=== PATIENT | male | born 1955 | race Caucasian/White ===

== ENCOUNTER 2020-02-23 20:35 | Inpatient (IN) | payer MEDICARE, OTHER ==
[~2020-02-23] VITALS: Ht 175.3 cm; Wt 92.6 kg
--- NOTE | 2020-02-23 21:23 | NUR ---
PT BIBEMS SENT BY DR LOPEZ FROM [facility] FOR TEMPORARY COLOSTOMY PLACEMENT AND FURTHER EVAL. +SACRAL WOUND. PT W/ TRACHE ON 5 LPM OF O2, SANDOVAL CATHETER AND RECTAL TUBE IN PLACE. PT AAOX2, VSS.PT CONNECTED TO THE GIS MANAGER AND POX.
--- NOTE | 2020-02-23 21:52 | NUR ---
COVID SWAB COLLECTED AND SENT TO LAB
--- NOTE | 2020-02-23 21:52 | NUR ---
BLOOD COLLECTED AND SENT TO LAB
--- NOTE | 2020-02-23 22:00 | NUR ---
CALLED NURSING SUP FOR BED
[2020-02-23 22:01] LABS: BASOPHILS # (AUTO) 0.1 /CMM (0.0-0.2); BASOPHILS % (AUTO) 0.4 % (0.0-2.0); EOSINOPHILS % (AUTO) 0.5 % (0.0-6.0); HEMATOCRIT 23 % (39-51); HEMOGLOBIN 7.1 g/dL (13.5-17.5); LYMPHOCYTES # (AUTO) 1.6 /CMM (0.8-4.8); LYMPHOCYTES % (AUTO) 7.6 % (20.0-44.0); MEAN CORPUSCULAR HGB CONC 31 g/dl (31.0-36.0); MEAN CORPUSCULAR VOLUME 89 fL (80-96); MONOCYTES % (AUTO) 4.6 % (2.0-12.0); NEUTROPHILS # (AUTO) 18.7 /CMM (1.8-8.9); NEUTROPHILS % (AUTO) 86.9 % (43.0-81.0); PLATELET COUNT (AUTO) 363 /CMM (150-450); RED BLOOD CELL COUNT(AUTO) 2.57 MIL/uL (4.5-6.0); WHITE BLOOD COUNT (AUTO) 21.5 K/uL (4.3-11.0)
[2020-02-23 22:23] LABS: CALCIUM, SERUM 8.5 mg/dL (8.5-10.1); CREATININE 0.8 mg/dL (0.6-1.3); POTASSIUM 4.5 mmol/L (3.5-5.1)
[2020-02-23 22:30] LABS: ALBUMIN 1.5 g/dL (3.4-5.0); BILIRUBIN,TOTAL 0.3 mg/dL (0.2-1.0); TOTAL PROTEIN, SERUM 6.6 g/dL (6.4-8.2)
[2020-02-23 22:36] LABS: BILIRUBIN,URINE NEGATIVE (NEGATIVE); BLOOD, URINE NEGATIVE Ery/uL (NEGATIVE); COLOR,URINE YELLOW (YELLOW); LEUKOCYTE ESTERASE ,URINE LARGE (NEGATIVE); NITRITE, URINE NEGATIVE (NEGATIVE); PH,URINE 8.5 (5.0-8.0); PROTEIN,URINE 30 mg/dl (NEGATIVE); UGLUCOSE NEGATIVE (NEGATIVE); UROBILINOGEN,URINE 0.2 EU/dL (0.2)
[2020-02-23 22:44] LABS: BACTERIA,URINE 3+ /HPF (None Seen); SQUAMOUS EPITHELIAL CELL,UR Few /HPF (None Seen); URINE AMORPHOUS PHOSPHATES Moderate /HPF (None Seen); WBC,URINE 81-100 /HPF (0-3)
[2020-02-24] MEDS ORDERED: ONDANSETRON HCL/PF 4 MG/2 ML VIAL IVP PRN
[2020-02-24] MEDS ORDERED: HYDROCODONE/APAP 5/325MG TABLET PO PRN
[2020-02-24] MEDS ORDERED: INSULIN REGULAR, HUMAN 100 UNIT/ML 3 ML VIAL SQ PRN
[2020-02-24] MEDS ORDERED: MAGNESIUM HYDROXIDE 30 ML UDC PO PRN
[2020-02-24] MEDS ORDERED: MAG HYDROX/AL HYDROX/SIMETH 30 ML UDC PO PRN
--- NOTE | 2020-02-24 01:19 | NUR ---
PT RESTING. NAD NOTED, VSS, BREATHING IS EVEN AND UNLABORED. WILL CONTINUE TO MONITOR.
[2020-02-24] MEDS: *INSULIN REGULAR(HUMULIN R)HUM 100 UNIT/ML VIAL SQ PRN ×2 (02:30→23:29)
[2020-02-24] MEDS ORDERED: INSULIN REGULAR, HUMAN 100 UNIT/ML 10 ML VIAL ONE (02:31)
--- NOTE | 2020-02-24 04:00 | NUR ---
PT SLEEPING IN BED. EASILY AWAKEN BY MECHANICAL STIMULI. VSS WILL CONTINUE TO MONITOR.
[2020-02-24 05:19] LABS: BASOPHILS # (AUTO) 0.1 /CMM (0.0-0.2); BASOPHILS % (AUTO) 0.5 % (0.0-2.0); EOSINOPHILS % (AUTO) 0.7 % (0.0-6.0); LYMPHOCYTES # (AUTO) 2.2 /CMM (0.8-4.8); LYMPHOCYTES % (AUTO) 12.1 % (20.0-44.0); MEAN CORPUSCULAR HGB CONC 31 g/dl (31.0-36.0); MEAN CORPUSCULAR VOLUME 89 fL (80-96); MONOCYTES # (AUTO) 1.1 /CMM (0.1-1.30); MONOCYTES % (AUTO) 6.3 % (2.0-12.0); NEUTROPHILS # (AUTO) 14.6 /CMM (1.8-8.9); NEUTROPHILS % (AUTO) 80.4 % (43.0-81.0); PLATELET COUNT (AUTO) 334 /CMM (150-450); RED BLOOD CELL COUNT(AUTO) 2.15 MIL/uL (4.5-6.0); WHITE BLOOD COUNT (AUTO) 18.1 K/uL (4.3-11.0)
[2020-02-24 05:25] LABS: CALCIUM, SERUM 8.8 mg/dL (8.5-10.1); CREATININE 0.6 mg/dL (0.6-1.3); PHOSPHORUS 3.2 mg/dL (2.5-4.9); POTASSIUM 4.2 mmol/L (3.5-5.1)
[2020-02-24 05:26] LABS: HEMATOCRIT 19 % (39-51)
[2020-02-24 05:45] LABS: BAND % (MANUAL) 3 % (0.0-5.0); EOSINOPHILS % (MANUAL) 3 % (0-4); LYMPHOCYTES % (MANUAL) 12 % (16-48); MONOCYTES % (MANUAL) 7 % (0-11.0); NEUTROPHILS % (MANUAL) 75 (42-76)
[2020-02-24 06:20] LABS: BASOPHILS # (AUTO) 0.1 /CMM (0.0-0.2); BASOPHILS % (AUTO) 0.5 % (0.0-2.0); EOSINOPHILS % (AUTO) 0.9 % (0.0-6.0); LYMPHOCYTES # (AUTO) 2.2 /CMM (0.8-4.8); LYMPHOCYTES % (AUTO) 12.2 % (20.0-44.0); MEAN CORPUSCULAR HGB CONC 32 g/dl (31.0-36.0); MEAN CORPUSCULAR VOLUME 90 fL (80-96); MONOCYTES # (AUTO) 1.1 /CMM (0.1-1.30); NEUTROPHILS # (AUTO) 14.6 /CMM (1.8-8.9); NEUTROPHILS % (AUTO) 80.4 % (43.0-81.0); PLATELET COUNT (AUTO) 345 /CMM (150-450); RED BLOOD CELL COUNT(AUTO) 2.19 MIL/uL (4.5-6.0); WHITE BLOOD COUNT (AUTO) 18.1 K/uL (4.3-11.0)
[2020-02-24 06:21] LABS: HEMOGLOBIN 6.2 g/dL (13.5-17.5)
[2020-02-24 06:22] LABS: HEMATOCRIT 20 % (39-51)
--- NOTE | 2020-02-24 06:42 | NUR ---
blood consent signed by pt
--- NOTE | 2020-02-24 07:24 | NUR ---
REPORT GIVEN TO PRIMO ROBINS FOR ERIC
[2020-02-24] MEDS: BLOOD SUGAR DIAGNOSTIC 1 EACH STRIP VI SCH ×4 (07:30→22:05)
--- NOTE | 2020-02-24 09:45 | NUR ---
PHLEB ATTEMPTING TO OBTAIN BLOOD FOR A TYPE AND SCREEN. PATIENT A/OX3, BREATHING EVEN AND UNLABORED, RESTING COMFORTABLE.
[2020-02-24] MEDS ORDERED: DONE5TAB34 GT (09:48)
[2020-02-24] MEDS ORDERED: ONDA4TAB11 GT (09:48)
[2020-02-24] MEDS ORDERED: NUT.237L31 GT (09:48)
[2020-02-24] MEDS ORDERED: AMIN887L GT (09:48)
[2020-02-24] MEDS ORDERED: LANS30CA56 GT (09:48)
[2020-02-24] MEDS ORDERED: NA P133E RC (09:48)
[2020-02-24] MEDS ORDERED: DIGO0.12 GT (09:48)
[2020-02-24] MEDS ORDERED: ASCO500C17 GT (09:48)
[2020-02-24] MEDS ORDERED: MAGN400O6 GT (09:48)
[2020-02-24] MEDS ORDERED: CRAN3875 GT (09:48)
[2020-02-24] MEDS ORDERED: MULT-439 GT (09:48)
[2020-02-24] MEDS ORDERED: DOCU-141 GT (09:48)
[2020-02-24] MEDS ORDERED: CHLO473M3 MM (09:48)
[2020-02-24] MEDS ORDERED: HYDR-4384 PO (09:48)
[2020-02-24] MEDS ORDERED: FURO-145 PO (09:48)
[2020-02-24] MEDS ORDERED: INSU100I4 SQ (09:48)
[2020-02-24] MEDS ORDERED: ACET325T53 GT (09:48)
[2020-02-24] MEDS ORDERED: IPRA4AER IH (09:48)
[2020-02-24] MEDS ORDERED: MEMA5TAB GT (09:48)
[2020-02-24] MEDS ORDERED: APIX5TAB GT (09:48)
[2020-02-24] MEDS ORDERED: ATOR80TA GT (09:48)
[2020-02-24] MEDS ORDERED: BISA-79 GT (09:48)
--- NOTE | 2020-02-24 11:31 | NUR ---
PATIENT SEEN BY ANDRY MARY FROM SURGERY DEPT.
--- NOTE | 2020-02-24 13:44 | NUR ---
Assumed patient care from ruy ace for tatiana
--- NOTE | 2020-02-24 14:08 | NUR ---
BT STARTED. VERIFIED BY SHIMON TREJO
[2020-02-24] MEDS ORDERED: CEFTRIAXONE 1 G in IV D5W 50 ML IV SCH (14:30)
--- NOTE | 2020-02-24 15:56 | NUR ---
BT COMPLETED. NO ADVERSE SIDE EFFECT NOTED.
--- NOTE | 2020-02-24 16:20 | NUR ---
NURSING SUP GAVE 306-1. ROMEO IS THE NURSE.
--- NOTE | 2020-02-24 16:40 | NUR ---
REPORT GIVEN TO SHIMON BRITTON FOR ERIC
--- NOTE | 2020-02-24 16:55 | NUR ---
PT TRANSPORTED TO UNIT ON [facility] WITH EMT AND RN AT THE BED SIDE W/ ACLS PROTOCOL. NAD NOTED DURING TRANSPORT.
[2020-02-24 17:00] VITALS: BP 91/62
[2020-02-24] MEDS ORDERED: Z GUARD REMEDY 2 OZ OINT TP PRN ×2 (17:00)
[2020-02-24] MEDS ORDERED: DEXTROSE 50%-WATER 50 ML DISP.SYRIN IV PRN ×2 (17:00)
--- NOTE | 2020-02-24 17:00 | NUR ---
COMPLAINT INSPECTOR ADMITTING NOTES RECEIVED PT AT THIS TIME. PT TRANSPORTED TO UNIT BY RENÉ. PT AOX2. PT ON EXTERNAL TELE JAWBONE PULLER READING SR IN THE 80S. NO SOB NOTED, NO S/S OF ANY ACUTE DISTRESS NOTED. NO C/O PAIN AT THIS TIME. RESPIRATIONS ARE EVEN AND UNLABORED. PT NOTED WITH TRACH ON COOL AEROSOL, PORTEX 8. IV ACCESS NOTED IN LFA G#22, INTACT, PATENT AND FLUSHING WELL. LUNG SOUNDS ARE CLEAR TO AUSCULTATION, ACTIVE BOWEL SOUNDS, ABD IS SOFT AND NON TENDER. SKIN IS WARM TO TOUCH. CAPILLARY REFILL <3SECONDS. PULSES ARE PRESENT BILATERALLY. SANDOVAL CATHETER IN PLACE DRAINING TO GRAVITY CLEAR YELLOW URINE OUTPUT. G-TUBE NOTED, CLEAN AND DRY. RECTAL TUBE IN PLACE. SACRAL WOUND NOTED, PICTURE TAKEN AND FILED IN CHART.WOUND CARE PROVIDED. PT HAD NO BELONGINGS NOTED. ASPIRATION AND SAFETY PRECAUTION IN PLACE AND MAINTAINED AT ALL TIMES. BED IN LOWEST LOCKED POSITION, HOB ELEVATED, SIDE RAILS UP X 2, CALL LIGHT AND TABLE WITHIN REACH. WILL CONTINUE TO MONITOR.
[2020-02-24] MEDS: CEFTRIAXONE 1 G in IV D5W 50 ML IV SCH (17:55)
[2020-02-24] MEDS: IV 1/2NS 1000 ML 1,000 ML IV PRN (17:55)
--- NOTE | 2020-02-24 18:00 | NUR ---
PT PLACED ON DVT PUMPS PER VTE PROTOCOL, WILL ENDORSE TO LINING FINISHER NURSE
--- NOTE | 2020-02-24 19:00 | NUR ---
GOT UPDATE ON PT'S FLU VACCINE AND PNEUMOCOCCAL VACCINE FROM SHIMON BOOKER @ [facility]. PER ADE, PT RECEIVED FLU VACCINE ON FEB 05, 2020 AND PNEUMOVAX ON FEB 06, 2020
--- NOTE | 2020-02-24 19:01 | NUR ---
PER SHIMON BOOKER @ [facility], PT WAS ON GLUCERNA 1.5 @65ML/HR X20HRS. OFF @8AM AND START@12NOON. DR PEGUERO MADE AWARE AND ENDORSED TO SHIMON DOVE DROP PRESS HAND
--- NOTE | 2020-02-24 19:02 | NUR ---
RECEIVED ORDERS FROM DR PEGUERO TO RESUME PT ON GLUCERNA 1.5 @65ML/HR X20HRS. OFF @8AM AND START@12NOON. ORDERS CARRIED OUT. WILL ENDORSE TO COUTURE ALTERATIONS DRESSMAKER NURSE
--- NOTE | 2020-02-24 19:05 | NUR ---
NIB FINISHER CLOSING NOTES PT AWAKE IN BED AT THIS TIME. PT REMAINED STABLE THROUGHOUT SHIFT. ALL CARE, NEED, MEDICATIONS AND TREATMENT ADMINISTERED ANTICIPATED PER ORDER. PT KEPT CLEAN AND DRY. RECTAL TUBE OUTPUT MEASURED AND EMPTIED. TRACH TIE CHANGED AND TRACH CARE PROVIDED. WOUND CARE PROVIDED. G-TUBE SITE KEPT CLEAN AND DRY. SANDOVAL CATHETER CARE PROVIDED. PT REPOSITIONED Q2HRS AND PRN. ASPIRATION AND SAFETY PRECAUTION IN PLACE AND MAINTAINED AT ALL TIMES. BED IN LOWEST LOCKED POSITION, HOB ELEVATED, SIDE RAILS UP X 2, CALL LIGHT AND TABLE WITHIN REACH. WILL CONTINUE TO MONITOR.
--- NOTE | 2020-02-24 19:30 | NUR ---
WOUND CONSULT TRIGGERED. WILL CONTINUE WITH PLAN OF CARE
--- NOTE | 2020-02-24 19:30 | NUR ---
RN NOTES RECEIVED PT. SLEEPING BUT AROUSABLE, SR ON TELE MONITOR HR-79, G-TUBE CLAMPED, RECTAL TUBE IN PLACE, F/C DRAINING CLEAR YELLOW URINE, TRACH CONNECTED TO COOL AEROSOL, NOT IN DISTRESS, NO PAIN NOTED, SIDERAILSUPX2 CONTINUE TO MONITOR
[2020-02-24 20:00] VITALS: BP 105/65
[2020-02-24 20:15] VITALS: BP 105/65
[2020-02-24] MEDS ORDERED: GLUCERNA 1.5 1,000 ML BOTTLE GT PRN (20:30)
[2020-02-24] MEDS: VANCOMYCIN 1 GM in IV D5W 250 ML IV SCH (20:35)
--- NOTE | 2020-02-24 23:00 | NUR ---
RN NOTES STARTED G-TUBE FEEDING GLUCERNA @ 65ML HR, , CONTINUE TO MONITOR
[2020-02-24 23:20] LABS: HEMOGLOBIN 7.2 g/dL (13.5-17.5)
[2020-02-25] VITALS (12 sets, daily range): BP systolic 89–104; BP diastolic 51–66
[2020-02-25] MEDS: VANCOMYCIN 1 GM in IV D5W 250 ML IV SCH ×3 (03:36→22:18)
[2020-02-25] MEDS: INSULIN REGULAR, HUMAN 100 UNIT/ML 3 ML VIAL SQ PRN ×3 (05:55→17:56)
--- NOTE | 2020-02-25 06:37 | NUR ---
RN NOTES SLEEPING BUT AROUSABLE, NOT IN DISTRESS, PT IS TOLERATING HIS G-TUBE FEEDING FAIRLY, RECTAL IN TUBE IN PLACE, F/C DRAINING TEA COLORED URINE, SIDERAILSUPX2, PT. NEEDS ATTENDED
[2020-02-25] MEDS: BLOOD SUGAR DIAGNOSTIC 1 EACH STRIP VI SCH ×4 (06:59→22:18)
--- NOTE | 2020-02-25 07:30 | NUR ---
RN OPENING NOTE THE PATIENT IS RECEIVED IN BED. PATIENT IS ALERT TO SELF AND ABLE TO MOUTH WORDS. THE PATIENT IS HAS TRACH PORTEX #8. NO S/S RESPIRATORY DISTRESS NOTED. DENIES PAIN. TELE BOX READING IS SR 67 WITH PAC. GT FEEDING GLUCERNA INFUSING AT 65ML/HR. SANDOVAL CATH AND RECTAL TUBES PRESENT. LFA G 20 PATENT AND 1/2 NS INFUSING AT 75ML/HR AND NO S/S INFILTRATION NOTED. BED LOW AND LOCKED. SIDE RAILS UP X3. CALL LIGHT WITHIN REACH. WILL CONTINUE TO MONITOR.
--- NOTE | 2020-02-25 08:55 | NUR ---
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 PT NOTED TO HAVE RECTAL TUBE AND SANDOVAL. RECOMMENDATIONS MADE FOR SKIN PROTECTION AND WOUND CARE. DISCUSSED WITH NURSING STAFF AND DR NAVEEN MARROQUIN, SURGEON CURRENTLY ON CASE. FIRST STEP LOW AIRLOSS MATTRESS IS ON ORDER. IN AGREEMENT WITH PLAN OF CARE. Addendum: 02/25/20 at 0857 by ALICIA PARKER WNDNU Amended: Links added.
[2020-02-25 10:16] LABS: CALCIUM, SERUM 8.7 mg/dL (8.5-10.1); CREATININE 0.7 mg/dL (0.6-1.3); POTASSIUM 4.5 mmol/L (3.5-5.1)
[2020-02-25] MEDS ORDERED: ALBUTEROL HALF STRENGTH 1.25 MG/3 ML VIAL.NEB NEB PRN (10:30)
[2020-02-25] MEDS ORDERED: IPRATROPIUM NEB FS 0.5 MG/2.5 ML AMPUL.NEB NEB PRN (10:30)
[2020-02-25] MEDS: FAMOTIDINE (20 MG) 20 MG TABLET PO SCH (10:50)
[2020-02-25] MEDS: DAKINS QUARTER STRENGTH (0.125%) 480 ML BOTTLE TOP SCH (11:02)
--- NOTE | 2020-02-25 17:13 | NUR ---
RN NOTE BLOOD CULTURE STAT IS NOT DONE YET BECAUSE THE PATIENT IS GETTING BLOOD TRANSFUSION. THE GILL BOX TENDER WILL GET SPECIMEN FOR BLOOD CULTURE AFTER THE TRANSFUSION.
[2020-02-25] MEDS: CEFTRIAXONE 1 G in IV D5W 50 ML IV SCH (18:25)
--- NOTE | 2020-02-25 18:30 | NUR ---
RN CLOSING NOTE THE PATIENT IS ALERT AND ORIENTED X1. ABLE TO MOUTH WORDS. THE PATIENT IS TRACH. DENIES PAIN. THE PATIENT IS IN NO APPARENT DISTRESS. SANDOVAL CATH PRESENT AND NOTED CLEAR, YELLOW COLOR URINE. NO BLADDER DISTENSION NOTED. RACTAL TUBE PRESEN. GT FEEDING GLUCERNA INFUSING AT 65ML/HR AND NO RESIDUAL NOTED. ABDOMEN SOFT AND NON-DISTENDED. BED LOW AND LOCKED. SIDE RAILS UP X3. CALL LIGHT WITHIN REACH. WILL ENDORSE TO GROUP CONTRACT ANALYST.
[2020-02-25] MEDS: IV 1/2NS 1000 ML 1,000 ML IV PRN (19:48)
--- NOTE | 2020-02-25 19:49 | NUR ---
RN NOTE AMERICAN SIGN LANGUAGE TEACHER MARIELENA IS MADE AWARE THAT WE DO NOT HAVE GLUCERNA 1.5 AND INSTEAD WE CARRY GLUCERNA 1.2. SO RECEIVED AN ORDER TO DISCONTINUE GLUCERNA 1.5 AND ENTER NEW ORDER OF GLUCERNA 1.2 AT 65 ML/HR FOR 20 HOURS. THE ORDER IS READ BACK, VERIFIED. NOTED AND CARRIED OUT.
[2020-02-25] MEDS ORDERED: GLUCERNA 1.2 1,000 ML BOTTLE GT PRN (20:00)
--- NOTE | 2020-02-25 20:00 | NUR ---
DRYING CAN WORKER: RECEIVED REPORT FROM MINA ROBINS. PT A/O X1, ON 5L TRACHE DEPENDENT PT, SUCTION SET UP SECURED. NO IV ACCESS UNFORTUNATELY, HARD TO STICK, WILL TRY REINSERTING. PT TELE SINUS RHYTHM PAC HR 75. S/P SACRAL WOUND DEBRIDEMENT 02/23 BY [place], RECTAL TUBE IN PLACED, SANDOVAL CATHETER IN PLACED, BAG DRAINING VIA GRAVITY. PT HAS GTUBE IN PLACED, RECEIVING GLUCERNA 1.2 AT 65ML/HR. ON [place] MATTRESS, BLE AND BUE OFFLOADED ON PILLOWS. SAFETY PRECAUTIONS FOR FALL INITIATED, CALL LIGHT IN REACH, WILL CONTINUE MONITORING PT.
--- NOTE | 2020-02-25 20:32 | NUR ---
RN NOTES: TRIED DOING IV REINSERTION TWICE BUT UNSUCCESSFUL. PT REFUSING FOR ANOTHER IV REINSERTION DESPITE PROVIDING EDUCATION. PROTECTIVE SERVICE SPECIALIST CAME ALSO TO DRAW BLOOD, TWICE, BUT UNSUCCESSFUL.
--- NOTE | 2020-02-25 20:35 | NUR ---
RN NOTES/PAGED EPIC: PAGED EPIC MD BUSINESS SOLUTION ANALYST RECOMMENDATION FOR MIDLINE INSERTION, MULTIPLE IV ATTEMPT UNSUCCESSFUL, IV ATB THERAPY
[2020-02-25 20:38] LABS: OCCULT BLOOD STOOL NEGATIVE (NEGATIVE)
--- NOTE | 2020-02-25 20:40 | NUR ---
RN NOTES: RECEIVED CALL BACK FROM MD, TELEPHONE ORDER RECEIVED TO INSERT MIDLINE. ORDER READ BACK VERIFIED AND CARRIED OUT.
--- NOTE | 2020-02-25 20:49 | NUR ---
RN NOTES: EXPLAINED TO THE PT ABOUT THE IMPORTANCE OF MIDLINE INSERTION, PTR AGREE AND UNDERSTAND. RESULT OF STOOL OB CAME BACK NEGATIVE
--- NOTE | 2020-02-25 21:16 | NUR ---
RN NOTES: MIDLINE INSERTION DONE BY HERNÁN PICC LINE RN. ALSO PEG TUBE ABLE TO FLUSH WELL WITH WATER, NO RESISTANCE MET. EARLIER THERE WAS A PROBLEM GTUBE BECAME UNABLE TO FLUSH, MEETING RESISTANCE, AFTER MILKING, AND GETTING THE GUNK OUT, GTUBE ABLE TO WORK PROPERLY. CONTACTED LAB TO COME FOR BLOOD CULTURE, AND REPEAT H/H WITH TITA SWEENEY.
--- NOTE | 2020-02-25 21:25 | NUR ---
RN NOTES/BLOOD DRAW: NEW MIDLINE JUST INSERTED. DRAW BLOOD FOR H/H AND VANCO TROUGH. LAB WILL RE-DRAW FOR BLOOD CULTURE.
--- NOTE | 2020-02-25 21:41 | NUR ---
RN NOTES: PENDING VANCO TROUGH RESULT
[2020-02-25 21:53] LABS: HEMOGLOBIN 8.7 g/dL (13.5-17.5)
--- NOTE | 2020-02-25 21:59 | NUR ---
RN NOTES: RESULT OF VANCO TROUGH CAME BACK, RESULT IS 18. H/H 8.7/27
--- NOTE | 2020-02-25 22:00 | NUR ---
rn notes: epic md made aware of pt's refusal for blood draw for blood culture. no new orders received
--- NOTE | 2020-02-25 22:15 | NUR ---
rn notes: new iv tubings secured/set up as pt has newly inserted midline.
[2020-02-25] MEDS: *INSULIN REGULAR(HUMULIN R)HUM 100 UNIT/ML VIAL SQ PRN (22:19)
--- NOTE | 2020-02-25 22:19 | NUR ---
accu check 130/late admin of vanco: vanco trough result just came back at 2140, result is 18. vanco will be administered now. also blood sugar check performed and result is 130, no insulin coverage given per sliding scale.
--- NOTE | 2020-02-25 22:46 | NUR ---
rn notes/update to family: received call from pt's jim [phone], provided update regarding pt's condition, latest h/h and plan of care based on md's note. all question concerned were answered.
--- NOTE | 2020-02-25 23:50 | NUR ---
RN NOTES: PT REFUSED FOR BLOOD DRAW THIS IS HIS 2ND TIME REFUSING FOR BLOOD CULTURE DRAW. EDUCATION PROVIDED TO PT, REGARDING IMPORTANCE OF COMPLIANCE. PT REFUSED, STATED HE DOESNT WANT IT NOW, PER LAB THEY WILL REDRAW IT AT 0500AM TOMORROW.
[2020-02-26 00:01] VITALS: BP 104/58
[2020-02-26 00:04] VITALS: BP 104/58
--- NOTE | 2020-02-26 02:41 | NUR ---
rn notes/am care/wound care: assisted sticker on in providing bed bath for the pt, also wound care performed at this time per md order. complete ;linen change provided.
[2020-02-26 04:57] VITALS: BP 110/60
[2020-02-26] MEDS ORDERED: VANCOMYCIN 1 GM in IV D5W 250 ML IV SCH (06:00)
[2020-02-26] MEDS: BLOOD SUGAR DIAGNOSTIC 1 EACH STRIP VI SCH ×4 (06:16→21:43)
[2020-02-26] MEDS: INSULIN REGULAR, HUMAN 100 UNIT/ML 3 ML VIAL SQ PRN ×3 (06:17→18:09)
--- NOTE | 2020-02-26 06:52 | NUR ---
end of shift report: remains sinus rhythm with pac hr 77. tracheal suctioning performed as needed, able to obtain secretion, thick frothy whitish color, small amount. pt tolerated 5l oxgen via trache collar. no s/s of sob noted. carlos midline remains patent and flushing well, no s/s of iv infiltration noted. iv infusing with 1/2 ns at 75ml/hr. bue and ble offloaded on pillows. griffin catheter and rectal tubve remains in placed. dressing on sacral wound remains c/d/i, with minimal bleeding noted last night while doing dressing change. latest h/h 8.10/17, vanco trough result 18. gtube feeding remains in placed, glucerna 1.2 at 65ml/hr. on kci mattress. remains afebrile. new suction set up secured. plan of care: needs diverting colostomy when medically optimized, monitor h/h, hold eliquis per md last dose 02/23/2020. safety precautions for fall remains engaged, call light in reach, will endorse to day rn for tatiana.
--- NOTE | 2020-02-26 07:23 | NUR ---
TIMBER TREATING TANK OPERATOR OPENING NOTES RECEIVED PT IN BED AWAKE IN NO ACUTE SIGNS OF DISTRESS. HOB ELEVATED. ALERT TO SELF AND ABLE TO MOUTH WORDS, DENIES PAIN OR ANY DISCOMFORTS AT THIS TIME. ON COOL AEROSOL T-PIECE PORTEX #8, TOLERATING WELL WITH NO S/S RESPIRATORY DISTRESS NOTED. TELE -MONITORING SHOWS READING OF SR WITH HR ON THE 70'S, NO CARDIAC DISTRESS VOICED. JORDON MIDLINE G#18 INTACT AND PATENT WITH 1/2 NS INFUSING AT 75ML/HR. G-TUBE IN PLACE AND PATENT, GT FEEDING OF GLUCERNA INFUSING AT 65ML/HR, TOLERATING WELL. ASPIRATION PRECAUTIONS MAINTAINED. SANDOVAL CATH IN PLACE WITH CLEAR YELLOW URINE OUT PUT NOTED. SAFETY MEASURES IN PLACE: BED LOW AND LOCKED. SIDE RAILS UP X3. CALL LIGHT WITHIN REACH. WILL CONTINUE TO MONITOR.
[2020-02-26 07:24] LABS: CALCIUM, SERUM 8.5 mg/dL (8.5-10.1); CREATININE 0.6 mg/dL (0.6-1.3); POTASSIUM 4.4 mmol/L (3.5-5.1)
[2020-02-26 08:00] VITALS: BP 102/66
[2020-02-26] MEDS: FAMOTIDINE (20 MG) 20 MG TABLET PO SCH (08:46)
[2020-02-26] MEDS: DAKINS QUARTER STRENGTH (0.125%) 480 ML BOTTLE TOP SCH (08:47)
[2020-02-26 10:33] LABS: BASOPHILS % (AUTO) 0.3 % (0.0-2.0); EOSINOPHILS % (AUTO) 0.9 % (0.0-6.0); HEMATOCRIT 36 % (39-51); HEMOGLOBIN 10.8 g/dL (13.5-17.5); LYMPHOCYTES # (AUTO) 2.4 /CMM (0.8-4.8); LYMPHOCYTES % (AUTO) 13.7 % (20.0-44.0); MEAN CORPUSCULAR HGB CONC 30 g/dl (31.0-36.0); MEAN CORPUSCULAR VOLUME 95 fL (80-96); MONOCYTES # (AUTO) 0.9 /CMM (0.1-1.30); MONOCYTES % (AUTO) 5.2 % (2.0-12.0); NEUTROPHILS # (AUTO) 13.9 /CMM (1.8-8.9); NEUTROPHILS % (AUTO) 79.9 % (43.0-81.0); PLATELET COUNT (AUTO) 401 /CMM (150-450); RED BLOOD CELL COUNT(AUTO) 3.77 MIL/uL (4.5-6.0); WHITE BLOOD COUNT (AUTO) 17.3 K/uL (4.3-11.0)
[2020-02-26 16:00] VITALS: BP 111/56
[2020-02-26] MEDS: IV 1/2NS 1000 ML 1,000 ML IV PRN (16:51)
[2020-02-26] MEDS: VANCOMYCIN 0.75 GM in IV D5W 250 ML IV SCH (17:15)
[2020-02-26] MEDS: GLUCERNA 1.2 1,000 ML BOTTLE GT PRN (17:16)
[2020-02-26] MEDS: CEFTRIAXONE 1 G in IV D5W 50 ML IV SCH (18:22)
--- NOTE | 2020-02-26 18:50 | NUR ---
MS RN CLOSING NOTES PT IN BED AWAKE, ALERT TO SELF WITH EPISODE OF CONFUSION NOTED. PT ABLE TO MOUTH WORDS. MAINTAINED ON COOL AEROSOL T-PIECE, PORTEX #8, TOLERATING WELL WITH NO ACUTE RESPIRATORY DISTRESS NOTED DURING SHIFT. JORDON MIDLINE G#18 INTACT AND PATENT WITH 1/2 NS INFUSING AT 75ML/HR. G-TUBE IN PLACE AND PATENT, GT FEEDING OF GLUCERNA 1.2 RUNNING AT 65ML/HR, TOLERATING WELL. ASPIRATION PRECAUTIONS MAINTAINED. SANDOVAL CATH IN PLACE WITH CLEAR YELLOW URINE OUTPUT NOTED, SANDOVAL CARE DONE. PT TURNED AND REPOSITIONED Q 2 HOURS AND PRN. KEPT CLEAN, DRY AND COMFORTABLE. SAFETY MEASURES KEPT IN PLACE: BED LOW AND LOCKED. SIDE RAILS UP X3. CALL LIGHT WITHIN REACH.WILL ENDORSE TO METAL RIVETER NURSE FOR ERIC
--- NOTE | 2020-02-26 19:15 | NUR ---
MS RN NOTE: PATIENT RESTING IN BED, NO ACUTE DISTRESS NOTED'. BREATHING EVEN AND UNLABORED, NO SOB NOTED. TRACH IN PLACE TO COOL AEROSOL. SANDOVAL CATHETER IN PLACE, DRAINING CLEAR YELLOW URINE. G-TUBE IN PLACE, WITH 5ML RESIDUAL, INFUSING GLUCERNA 1.2 AT 65ML/HR. MIDLINE TO JORDON IN PLACE, INFUSING 1/2NS AT 75ML/HR. HOB ELEVATED. BED LOCKED AND IN LOWEST POSITION, CALL LIGHT IN REACH. WILL CONTINUE TO MONITOR.
[2020-02-26 20:00] VITALS: BP 113/62
--- NOTE | 2020-02-26 22:30 | NUR ---
MS RN NOTE: PATIENT BLOOD SUGAR LEVEL 169MG/DL, PATIENT TO RECEIVE 3 UNITS OF INSULIN PER SLIDING SCALE. NO S/S OF HYPER/HYPOGLYCEMIA NOTED. WILL CONTINUE TO MONITOR.
[2020-02-26] MEDS: *INSULIN REGULAR(HUMULIN R)HUM 100 UNIT/ML VIAL SQ PRN (22:33)
[2020-02-27] MEDS: VANCOMYCIN 0.75 GM in IV D5W 250 ML IV SCH ×3 (01:15→16:51)
--- NOTE | 2020-02-27 06:45 | NUR ---
MS RN NOTE: PATIENT RESTING IN BED, NO ACUTE DISTRESS NOTED'. BREATHING EVEN AND UNLABORED, NO SOB NOTED. TRACH IN PLACE TO COOL AEROSOL. SANDOVAL CATHETER IN PLACE, DRAINED 850ML OF CLEAR YELLOW URINE. RECTAL TUBE IN PLACE. G-TUBE IN PLACE, INFUSING GLUCERNA 1.2 AT 65ML/HR. MIDLINE TO JORDON IN PLACE, INFUSING 1/2NS AT 75ML/HR. HOB ELEVATED. PATIENT BLOOD SUGAR LEVLE 207MG/DL, TO RECEIVE 6 UNITS OF INSULIN PER SLIDING SCALE. BED LOCKED AND IN LOWEST POSITION, CALL LIGHT IN REACH. WILL ENDORSE TO DAY NURSE TO CONTINUE WITH PLAN OF CARE.
[2020-02-27] MEDS: BLOOD SUGAR DIAGNOSTIC 1 EACH STRIP VI SCH ×4 (06:49→21:42)
[2020-02-27] MEDS: IV 1/2NS 1000 ML 1,000 ML IV PRN ×2 (06:49→11:33)
[2020-02-27] MEDS: INSULIN REGULAR, HUMAN 100 UNIT/ML 3 ML VIAL SQ PRN ×3 (06:50→18:00)
[2020-02-27 08:00] VITALS: BP 105/54
--- NOTE | 2020-02-27 09:20 | NUR ---
MS RN NOTES RECEIVED PATIENT FROM SHIMON THOMPSON FOR CONTINUATION OF CARE. PATIENT ALERT AND ORIENTED X1. HOB ELEVATED. ON T-PICES AT 5L/MIN WITHOUT S/S OF RESPIRATORY DISTRESS. DENIES ANY C/O PAIN NOR DISCOMFORT. REMAINS COMFORTABLY IN BED.
[2020-02-27] MEDS: FAMOTIDINE (20 MG) 20 MG TABLET PO SCH (09:46)
[2020-02-27] MEDS: DAKINS QUARTER STRENGTH (0.125%) 480 ML BOTTLE TOP SCH (11:16)
[2020-02-27] MEDS: GLUCERNA 1.2 1,000 ML BOTTLE GT PRN (11:27)
[2020-02-27 15:56] LABS: BASOPHILS # (AUTO) 0.1 /CMM (0.0-0.2); BASOPHILS % (AUTO) 0.5 % (0.0-2.0); HEMATOCRIT 27 % (39-51); HEMOGLOBIN 8.7 g/dL (13.5-17.5); LYMPHOCYTES # (AUTO) 2.3 /CMM (0.8-4.8); LYMPHOCYTES % (AUTO) 13.8 % (20.0-44.0); MEAN CORPUSCULAR HGB CONC 32 g/dl (31.0-36.0); MEAN CORPUSCULAR VOLUME 89 fL (80-96); MONOCYTES # (AUTO) 1.1 /CMM (0.1-1.30); MONOCYTES % (AUTO) 6.5 % (2.0-12.0); NEUTROPHILS # (AUTO) 12.7 /CMM (1.8-8.9); NEUTROPHILS % (AUTO) 77.2 % (43.0-81.0); PLATELET COUNT (AUTO) 418 /CMM (150-450); RED BLOOD CELL COUNT(AUTO) 3.08 MIL/uL (4.5-6.0); WHITE BLOOD COUNT (AUTO) 16.4 K/uL (4.3-11.0)
[2020-02-27 16:00] VITALS: BP 96/56
[2020-02-27 16:03] LABS: CALCIUM, SERUM 7.8 mg/dL (8.5-10.1); CREATININE 0.7 mg/dL (0.6-1.3); POTASSIUM 4.1 mmol/L (3.5-5.1)
[2020-02-27] MEDS: CEFTRIAXONE 1 G in IV D5W 50 ML IV SCH (18:01)
--- NOTE | 2020-02-27 18:55 | NUR ---
MS RN NOTES PATIENT RESTING COMFORTABLY IN BED, WATCHING TV. HOB ELEVATED. REMAIN ON T-PIECE AT 5L/MIN WITHOUT S/S OF RESPIRATORY DISTRESS. SUCTIONED PATIENT AND OBTAINED PALE YELLOW THIN SECRETIONS. F/C INTACT AND PATENT DRAINING FREELY VIA BEDSIDE. FLEXI SEAL/ RECTAL TUBE IN PLACE. GT INTACT AND PATENT, PLACEMENT CHECKED WITH NO RESIDUAL OBSERVED DURING THE SHIFT. CONTINUED ON GLUCERNA 1.2 @ 65ML/HR NICK WELL. IN NO APPARENT DISTRESS. DENIES ANY C/O PAIN NOR DISCOMFORT. ABLE TO VERBALIZE NEEDS. CALL LIGHT WITHIN REACH.
--- NOTE | 2020-02-27 19:40 | NUR ---
MS RN OPENING NOTES RECEIVED PATIENT IN BED, ALERT AND ORIENTED X 2. VERBALLY RESPONSIVE AND ABLE TO FOLLOW DIRECTIONS. BREATHING REGULAR AND UNLABORED ON OXYGEN AT 5L/MIN VIA T-PIECE. TRACH INTACT AND PATENT. RIGHT UPPER ARM MIDLINE INTACT AND PATENT, INFUSING WELL WITH NO BLEEDING OR S/S OF INFILTRATION NOTED. GTUBE PATENT WITH NO RESIDUAL ASPIRATED. NO S/S OF PAIN/DISCOMFORT NOTED AT THIS TIME. BED LOW AND LOCKED ON SEMI FOWLERS POSITION, CALL LIGHT IN REACH. WILL CONTINUE TO MONITOR.
[2020-02-27 20:00] VITALS: BP 107/63
[2020-02-27 20:46] VITALS: BP 107/63
[2020-02-27] MEDS: *INSULIN REGULAR(HUMULIN R)HUM 100 UNIT/ML VIAL SQ PRN (21:43)
[2020-02-28] MEDS: VANCOMYCIN 0.75 GM in IV D5W 250 ML IV SCH ×3 (01:00→08:29)
--- NOTE | 2020-02-28 02:00 | NUR ---
MS RN NOTES DUE VANCOMYCIN NOT GIVEN D/T HIGH VANCO TROUGH 31
[2020-02-28] MEDS: GLUCERNA 1.2 1,000 ML BOTTLE GT PRN ×2 (03:18→20:46)
[2020-02-28] MEDS: IV 1/2NS 1000 ML 1,000 ML IV PRN ×2 (05:00→20:46)
--- NOTE | 2020-02-28 06:20 | NUR ---
MS RN CLOSING NOTES PATIENT IN BED, ALERT AND ORIENTED X 2. AFEBRILE WITH NO S/S OF DISTRESS OBSERVED. TRACH INTACT AND PATENT. RIGHT UPPER ARM MIDLINE PATENT AND INFUSING WELL. GTUBE PATENT WITH NO RESIDUAL ASPIRATED. NO S/S OF PAIN/DISCOMFORT NOTED AT THIS TIME. WOUND TREATMENTS PROVIDED. BED LOW AND LOCKED ON SEMI FOWLERS POSITION, CALL LIGHT IN REACH. WILL ENDORSE TO MORNING SHIFT FOR ERIC.
[2020-02-28] MEDS: BLOOD SUGAR DIAGNOSTIC 1 EACH STRIP VI SCH ×4 (06:32→21:25)
[2020-02-28] MEDS: INSULIN REGULAR, HUMAN 100 UNIT/ML 3 ML VIAL SQ PRN ×3 (06:33→17:11)
[2020-02-28 08:00] VITALS: BP 105/70
--- NOTE | 2020-02-28 08:29 | NUR ---
MS RN NOTES HELD VANCOMYCIN IV, VANCO TROUGH LEVEL 31, PHARMACY MADE AWARE.
[2020-02-28] MEDS: FAMOTIDINE (20 MG) 20 MG TABLET PO SCH (08:40)
[2020-02-28] MEDS: DAKINS QUARTER STRENGTH (0.125%) 480 ML BOTTLE TOP SCH (08:41)
[2020-02-28] MEDS ORDERED: HOME MED MISCELLANEOUS XX SCH ×2 (10:30)
[2020-02-28] MEDS ORDERED: BISACODYL (5 MG) 5 MG TABLET.DR GT PRN (10:30)
[2020-02-28] MEDS ORDERED: MAGNESIUM HYDROXIDE 30 ML UDC GT PRN (10:30)
[2020-02-28] MEDS ORDERED: NA PHOS,M-B/NA PHOS,DI-BA 1 EA ENEMA RC PRN (10:30)
[2020-02-28] MEDS ORDERED: SILVER NITRATE APPLICATOR 1 EA BOX TP SCH (11:30)
[2020-02-28] MEDS ORDERED: LIDOCAINE 1%-EPI 1:100,000 20 ML VIAL TP ONE (11:30)
[2020-02-28] MEDS: DIGOXIN 0.125 MG TABLET GT SCH (12:17)
[2020-02-28] MEDS: IPRATROPIUM/ALBUTEROL INHALER IH SCH ×2 (13:22→20:54)
[2020-02-28] MEDS ORDERED: VANCOMYCIN 0.75 GM in IV D5W 250 ML IV SCH (14:00)
--- NOTE | 2020-02-28 14:00 | NUR ---
MS RN NOTES DEBRIDEMENT ADILIA BY TYRA ALVAREZ TO SACRUM AREA. NICK DRAPER.
[2020-02-28] MEDS ORDERED: CELLULOSE,OXIDIZED 1 EA PACK MC ONE (14:53)
[2020-02-28] MEDS: MULTIVITAMINS,THERAGRAN 1 UDTAB TABLET GT SCH (15:27)
[2020-02-28] MEDS: PROSOURCE / PROSTAT (PYXIS) 30 ML UDC GT SCH ×3 (15:28→21:06)
[2020-02-28 16:26] VITALS: BP 132/91
--- NOTE | 2020-02-28 17:00 | NUR ---
MS RN NOTES NOTED PATIIENT WITH TEMP OF 102.4. TYLENOL AND COOLING MEASURE RENDERED. WILL CONTINUE TO MONITOR.
[2020-02-28] MEDS: DOCUSATE SODIUM LIQ 100 MG/10 ML UDC PO SCH (17:01)
[2020-02-28] MEDS: MEMANTINE HCL 5 MG TABLET GT SCH (17:01)
[2020-02-28] MEDS: ACETAMINOPHEN 325 MG TABLET PO PRN (17:03)
[2020-02-28] MEDS: FIXODENT DENTURE ADHESIVE TUBE MM SCH (17:10)
[2020-02-28] MEDS: CEFTRIAXONE 1 G in IV D5W 50 ML IV SCH (17:10)
--- NOTE | 2020-02-28 18:00 | NUR ---
MS RN NOTES NOTED TEMP 101.O, CONTINUED ON COOLING MEASURES WITH FREQUENT VISUAL CHECK.
--- NOTE | 2020-02-28 19:00 | NUR ---
MS RN NOTES PATIENT RESTING COMFORTABLY IN BED, WATCHING TV. HOB ELEVATED. REMAIN ON T-PIECE AT 5L/MIN WITHOUT S/S OF RESPIRATORY DISTRESS. SUCTIONED PATIENT AND OBTAINED PALE YELLOW THIN SECRETIONS. RECTAL TUBE IN PLACE. GT INTACT AND PATENT, PLACEMENT CHECKED WITH NO RESIDUAL OBSERVED DURING THE SHIFT. CONTINUED ON GLUCERNA 1.2 @ 65ML/HR NICK WELL. IN NO APPARENT DISTRESS. DENIES ANY C/O PAIN NOR DISCOMFORT. ABLE TO VERBALIZE NEEDS. CALL LIGHT WITHIN REACH. ASSISTED ON COMING SHIFT NURSECHARLEE V. WITH SANDOVAL CATHETER CHANGE. PATIENT NICK WELL. S/P DEBRIDEMENT OF SACRUM, CHRISTIANO NICK WELL.
--- NOTE | 2020-02-28 19:10 | NUR ---
MS/RN OPENING NOTES: RECEIVED PATIENT RESTING COMFORTABLY IN BED, HOB ELEVATED. A/OX2. ABLE TO VERBALIZE NEEDS. TOLERATING T-PIECE AT 5L/MIN WITHOUT S/S OF RESPIRATORY DISTRESS. RECTAL TUBE IN PLACE. GT INTACT AND PATENT, NO RESIDUAL. ON GLUCERNA 1.2 @ 65ML/HR. NO APPARENT DISTRESS. DENIES ANY C/O PAIN NOR DISCOMFORT. CALL LIGHT WITHIN REACH. INSERTED A NEW SANDOVAL CATHETER PER ID. PATIENT TOLERATED WELL. S/P DEBRIDEMENT OF SACRUM, BUTTOCK TODAY. WILL CONTINUE TO MONITOR.
[2020-02-28 20:00] VITALS: BP 95/65
[2020-02-28] MEDS: ATORVASTATIN 40 MG TABLET GT SCH (21:06)
[2020-02-28] MEDS: DONEPEZIL 5 MG TABLET GT SCH (21:06)
[2020-02-28] MEDS: *INSULIN REGULAR(HUMULIN R)HUM 100 UNIT/ML VIAL SQ PRN (21:26)
[2020-02-28 23:26] LABS: BASOPHILS # (AUTO) 0.1 /CMM (0.0-0.2); BASOPHILS % (AUTO) 0.5 % (0.0-2.0); EOSINOPHILS % (AUTO) 0.6 % (0.0-6.0); HEMATOCRIT 29 % (39-51); HEMOGLOBIN 9.2 g/dL (13.5-17.5); LYMPHOCYTES # (AUTO) 1.5 /CMM (0.8-4.8); LYMPHOCYTES % (AUTO) 8.8 % (20.0-44.0); MEAN CORPUSCULAR HGB CONC 32 g/dl (31.0-36.0); MEAN CORPUSCULAR VOLUME 90 fL (80-96); MONOCYTES # (AUTO) 1.7 /CMM (0.1-1.30); MONOCYTES % (AUTO) 9.6 % (2.0-12.0); NEUTROPHILS # (AUTO) 13.9 /CMM (1.8-8.9); NEUTROPHILS % (AUTO) 80.5 % (43.0-81.0); PLATELET COUNT (AUTO) 407 /CMM (150-450); RED BLOOD CELL COUNT(AUTO) 3.23 MIL/uL (4.5-6.0); WHITE BLOOD COUNT (AUTO) 17.2 K/uL (4.3-11.0)
[2020-02-28 23:30] LABS: CALCIUM, SERUM 7.9 mg/dL (8.5-10.1); CREATININE 0.7 mg/dL (0.6-1.3); POTASSIUM 4.9 mmol/L (3.5-5.1)
[2020-02-29] MEDS: IPRATROPIUM/ALBUTEROL INHALER IH SCH ×4 (01:34→21:20)
[2020-02-29 06:14] LABS: BASOPHILS # (AUTO) 0.1 /CMM (0.0-0.2); BASOPHILS % (AUTO) 0.5 % (0.0-2.0); EOSINOPHILS % (AUTO) 0.8 % (0.0-6.0); HEMATOCRIT 27 % (39-51); HEMOGLOBIN 8.7 g/dL (13.5-17.5); LYMPHOCYTES # (AUTO) 1.2 /CMM (0.8-4.8); LYMPHOCYTES % (AUTO) 9.9 % (20.0-44.0); MEAN CORPUSCULAR HGB CONC 32 g/dl (31.0-36.0); MEAN CORPUSCULAR VOLUME 89 fL (80-96); MONOCYTES # (AUTO) 1.2 /CMM (0.1-1.30); MONOCYTES % (AUTO) 9.9 % (2.0-12.0); NEUTROPHILS # (AUTO) 9.8 /CMM (1.8-8.9); NEUTROPHILS % (AUTO) 78.9 % (43.0-81.0); PLATELET COUNT (AUTO) 370 /CMM (150-450); RED BLOOD CELL COUNT(AUTO) 3.03 MIL/uL (4.5-6.0); WHITE BLOOD COUNT (AUTO) 12.4 K/uL (4.3-11.0)
[2020-02-29] MEDS: BLOOD SUGAR DIAGNOSTIC 1 EACH STRIP VI SCH ×4 (06:43→22:56)
[2020-02-29] MEDS: INSULIN REGULAR, HUMAN 100 UNIT/ML 3 ML VIAL SQ PRN (06:43)
--- NOTE | 2020-02-29 07:00 | NUR ---
MS/RN NOTES: NO FEVER THROUGHOUT THE SHIFT.
--- NOTE | 2020-02-29 07:32 | NUR ---
MS/RN CLOSING NOTES: PATIENT REMAINS COMFORTABLY IN BED, HOB ELEVATED. A/OX2. ABLE TO VERBALIZE NEEDS. TOLERATING T-PIECE AT 5L/MIN WITHOUT S/S OF RESPIRATORY DISTRESS. RECTAL TUBE IN PLACE. GT INTACT AND PATENT, NO RESIDUAL. ON GLUCERNA 1.2 @ 65ML/HR. NO APPARENT DISTRESS. DENIES ANY C/O PAIN NOR DISCOMFORT. CALL LIGHT WITHIN REACH. ENDORSED TO DAY SHIFT FOR ERIC.
[2020-02-29 08:00] VITALS: BP 112/60
--- NOTE | 2020-02-29 08:00 | NUR ---
RN OPENING NOTE: RECEIVED PATIENT RESTING COMFORTABLY IN BED, HOB ELEVATED, BED IN LOW AND LOCKED POSITION.A/OX1. ABLE TO MAKE BASIC NEEDS KNOWN.. TOLERATING T-PIECE AT 5L/MIN WITHOUT S/S OF RESPIRATORY DISTRESS. SUCTIONED SMALL AMT BALTAZAR SPUTUM. RECTAL TUBE IN PLACE AND DRAINING SMALL AMT LIQUID/BROWN STOOL. . GT INTACT AND PATENT, NO RESIDUAL. ON GLUCERNA 1.2 @ 65ML/HR. TOLERATING RATE WELL..GTF HELD PER ORDER. DENIES ANY C/O PAIN NOR DISCOMFORT. CALL LIGHT WITHIN REACH. INSERTED A NEW SANDOVAL CATHETER PER ID. PATIENT TOLERATED WELL. S/P DEBRIDEMENT OF SACRUM, BUTTOCK YESTERDAY. ASSISTED WITH RESPOSITIONING FOR SKIN INTEGRITY AND COMFORT. WILL CONTINUE TO MONITOR.
[2020-02-29] MEDS ORDERED: MULTIVITAMIN LIQ 5 ML UDC GT SCH (09:00)
[2020-02-29] MEDS ORDERED: PROSOURCE / PROSTAT (PYXIS) 30 ML UDC GT SCH (09:00)
[2020-02-29] MEDS: FAMOTIDINE (20 MG) 20 MG TABLET PO SCH (09:48)
[2020-02-29] MEDS: PANTOPRAZOLE 40 MG/PACK PACK GT SCH (09:48)
[2020-02-29] MEDS: MEMANTINE HCL 5 MG TABLET GT SCH ×2 (09:48→18:11)
[2020-02-29] MEDS: DOCUSATE SODIUM LIQ 100 MG/10 ML UDC PO SCH ×2 (09:48→18:12)
[2020-02-29] MEDS: MULTIVITAMINS,THERAGRAN 1 UDTAB TABLET GT SCH (09:48)
[2020-02-29] MEDS: ACETAMINOPHEN 325 MG TABLET MC PRN (09:49)
[2020-02-29] MEDS: ASCORBIC ACID 500 MG TABLET GT SCH (09:49)
--- NOTE | 2020-02-29 09:50 | NUR ---
RN NOTE: FEVER. PT NOTED TO HAVE 102.3 FEVER, TYLENOL 650 MG ADMINISTERED VIA G-TUBE.
[2020-02-29] MEDS: FIXODENT DENTURE ADHESIVE TUBE MM SCH ×2 (09:51→18:12)
[2020-02-29] MEDS: DAKINS QUARTER STRENGTH (0.125%) 480 ML BOTTLE TOP SCH (09:51)
[2020-02-29] MEDS: GLUCERNA 1.2 1,000 ML BOTTLE GT PRN ×2 (09:55→15:46)
[2020-02-29] MEDS: PROSOURCE / PROSTAT (PYXIS) 30 ML UDC GT SCH ×4 (09:57→21:22)
[2020-02-29] MEDS: IV 1/2NS 1000 ML 1,000 ML IV PRN ×2 (10:26→23:13)
--- NOTE | 2020-02-29 12:00 | NUR ---
RN NOTE: CARLOS WASSERMAN NOTIFIED OF AM FEVER 102.3. WILL FOLLOW UP WITH FURTHER TESTS.
--- NOTE | 2020-02-29 13:02 | NUR ---
RN NOTE: AXILLARY TEMP 99.0.
[2020-02-29] MEDS: DIGOXIN 0.125 MG TABLET GT SCH (13:03)
--- NOTE | 2020-02-29 15:06 | NUR ---
RN NOTE: AXILLARY TEMP 98.0
--- NOTE | 2020-02-29 15:06 | NUR ---
SW Consult: SW consult requested due to stage 4 wound. Patient is a 65-year-old male who presents as non-verbal and unable to conduct verbal assessment with patient at this time. [address] [place] [phone] ([phone]). SELWYN spoke with patients nurse, Olivia at the facility who provided collateral information. Olivia stated that the patient was transferred to them on 02/04/20 from [facility] with a big wound for continued treatment. Olivia stated that they have a wound doctor who sees the patient every week for wound treatment. Olivia stated that they sent the patient to [facility] for a Colostomy. She further stated that the patient is non-verbal and requires assistance. Patient has a daughter, Estefani Hernandez ([phone]; [phone]) who is involved in his care however this social insurance analyst called and left voicemail at each number at 14:40PM and was unable to reach her at this time. Olivia stated that they are accepting patient back to their facility for continued treatment and care. SELWYN will follow up with janett.
--- NOTE | 2020-02-29 15:07 | NUR ---
RN NOTE: ORDERS ACKNOWLEDGED FROM USHA STEWART FOR SUSPECTED SEPSIS OF UNKNOWN SOURCE
[2020-02-29] MEDS: VANCOMYCIN 0.75 GM in IV D5W 250 ML IV SCH (15:45)
--- NOTE | 2020-02-29 15:46 | NUR ---
RN NOTE: UA AND SPUTUM COLLECTED PRIOR TO [facility]
--- NOTE | 2020-02-29 15:53 | NUR ---
SELWYN [facility] Report: SELWYN contacted Iris ([phone]) from [facility] and filed verbal and written report regarding possible neglect of care at patient's facility called [facility] ([phone]). This SW also faxed the written report ([phone]) to Iris. A copy of the report is placed in the patient's chart.
[2020-02-29 16:00] VITALS: BP 98/54
--- NOTE | 2020-02-29 16:05 | NUR ---
RN NOTE: BLOOD CULTURES X 2 COLLECTED. VANCO INFUSING
--- NOTE | 2020-02-29 19:00 | NUR ---
RN opening notes Pt is resting in bed comfortably. Pt is alert and orientedX1-2. Tolerating t-piece 5 L/min. No SOB. No S/S of distress noted. JORDON midline is clean, intact, dry and infusing well 0.45NS@ 75 ml/hr. On going G-tube feeding glucerna 1.2 @ 65 ml/hr with 0 residual. Foreman cath is intact and draining yellow urine. rectal tube is intact. Safety precautions is maintained. Bed at low position, brakes locked, side rails upX3 and call light is within reach. Will continue to monitor.
[2020-02-29 19:41] LABS: BILIRUBIN,URINE NEGATIVE (NEGATIVE); BLOOD, URINE NEGATIVE Ery/uL (NEGATIVE); COLOR,URINE YELLOW (YELLOW); LEUKOCYTE ESTERASE ,URINE NEGATIVE (NEGATIVE); NITRITE, URINE NEGATIVE (NEGATIVE); PH,URINE 6.5 (5.0-8.0); PROTEIN,URINE NEGATIVE (NEGATIVE); UGLUCOSE NEGATIVE (NEGATIVE); UROBILINOGEN,URINE 0.2 EU/dL (0.2)
[2020-02-29 20:00] VITALS: BP 120/73
[2020-02-29 20:24] VITALS: BP 120/73
--- NOTE | 2020-02-29 20:28 | NUR ---
RN notes Called and spoke with Pharmacy Meeta regarding Pt's vanco trough on 02/27 was 31. Meeta said "just give the vanco."
[2020-02-29] MEDS: MEROPENEM 1 G in IV NS 0.9% 100 ML IV SCH (20:46)
[2020-02-29] MEDS: ATORVASTATIN 40 MG TABLET GT SCH (21:25)
[2020-02-29] MEDS: DONEPEZIL 5 MG TABLET GT SCH (21:25)
[2020-02-29] MEDS: *INSULIN REGULAR(HUMULIN R)HUM 100 UNIT/ML VIAL SQ PRN (22:58)
[2020-03-01] MEDS: ACETAMINOPHEN 325 MG TABLET PO PRN (00:55)
--- NOTE | 2020-03-01 00:56 | NUR ---
RN notes Pt temp's is 101 F. Administered tylenol 325 mg/2 tabs/po as ordered for fever. Cooling measures is applied. Will continue to monitor.
[2020-03-01] MEDS: IPRATROPIUM/ALBUTEROL INHALER IH SCH ×3 (01:31→13:30)
--- NOTE | 2020-03-01 02:04 | NUR ---
RN notes Pt's temp 98.2 F. Will continue to monitor.
[2020-03-01] MEDS: VANCOMYCIN 0.75 GM in IV D5W 250 ML IV SCH ×2 (02:10→15:38)
[2020-03-01] MEDS: MEROPENEM 1 G in IV NS 0.9% 100 ML IV SCH ×3 (04:22→23:17)
[2020-03-01] MEDS: GLUCERNA 1.2 1,000 ML BOTTLE GT PRN ×2 (04:32→19:31)
[2020-03-01] MEDS: BLOOD SUGAR DIAGNOSTIC 1 EACH STRIP VI SCH ×4 (06:37→22:00)
[2020-03-01] MEDS: INSULIN REGULAR, HUMAN 100 UNIT/ML 3 ML VIAL SQ PRN (06:39)
[2020-03-01 06:43] LABS: CALCIUM, SERUM 7.4 mg/dL (8.5-10.1); CREATININE 0.8 mg/dL (0.6-1.3); POTASSIUM 4.1 mmol/L (3.5-5.1)
--- NOTE | 2020-03-01 06:55 | NUR ---
RN closing notes Pt is resting in bed comfortably. Pt is alert and orientedX1. Tolerating t-piece 5 L/min. No SOB. No S/S of distress noted. VS is stable. Afebrile. Routine meds were given as ordered. Wound care provided as ordered. Pt tolerating well. JORDON midline is clean, intact, dry and infusing well 0.45NS@ 75 ml/hr. On going G-tube feeding glucerna 1.2 @ 65 ml/hr with 0 residual. Foreman cath is intact and draining yellow urine 1300 ml. rectal tube draining 40 ml. Safety precautions is maintained. Bed at low position, brakes locked, side rails upX3 and call light is within reach. Will endorse to morning nurse for ERIC.
[2020-03-01 08:00] VITALS: BP 117/63
--- NOTE | 2020-03-01 08:00 | NUR ---
RN Opening note Received patient in bed AO x 1-2 able to responds all stimuli, does no appears pain or discomfort. Skin is warm to touch keep clean/dry, intact IV site on midline on JORDON running 1/2 NS at 75ml/hr. Respiratory even and unlabored with T-piece 5.0 oxygen at 5LPM O2sat 100%, no sob or distress observed. Kept bed locked with elevated HOB for ensure airway and aspiration precaution also lowest bed position for safety. Call light within reach will continue to monitor.
--- NOTE | 2020-03-01 08:44 | NUR ---
WOUND CARE CONSULT: RECEIVED CONSULT FOR RT LOWER LEG SKIN TEAR BUT NO OPEN WOUNDS NOTED ON LOWER LEGS. MULTIPLE AREAS OF SKIN DISCOLORATION/SCARS NOTED TO LOWER LEGS AND EDEMA NOTED TO FEET AND ANKLES. DISCUSSED SKIN PROTECTION WITH NURSING STAFF. WILL SEE PRN.
[2020-03-01] MEDS: DAKINS QUARTER STRENGTH (0.125%) 480 ML BOTTLE TOP SCH (09:01)
[2020-03-01] MEDS: PANTOPRAZOLE 40 MG/PACK PACK GT SCH (09:02)
[2020-03-01] MEDS: MEMANTINE HCL 5 MG TABLET GT SCH ×2 (09:02→16:58)
[2020-03-01] MEDS: ASCORBIC ACID 500 MG TABLET GT SCH (09:02)
[2020-03-01] MEDS: FUROSEMIDE 20 MG TABLET PO SCH (09:02)
[2020-03-01] MEDS: FAMOTIDINE (20 MG) 20 MG TABLET PO SCH (09:02)
[2020-03-01] MEDS: DOCUSATE SODIUM LIQ 100 MG/10 ML UDC PO SCH ×2 (09:02→16:58)
[2020-03-01] MEDS: MULTIVITAMINS,THERAGRAN 1 UDTAB TABLET GT SCH (09:02)
[2020-03-01] MEDS: PROSOURCE / PROSTAT (PYXIS) 30 ML UDC GT SCH ×4 (09:07→23:38)
[2020-03-01] MEDS: FIXODENT DENTURE ADHESIVE TUBE MM SCH ×2 (09:08→17:01)
[2020-03-01] MEDS: *INSULIN REGULAR(HUMULIN R)HUM 100 UNIT/ML VIAL SQ PRN (12:21)
[2020-03-01] MEDS: DIGOXIN 0.125 MG TABLET GT SCH (12:25)
[2020-03-01] MEDS: ACETAMINOPHEN 325 MG TABLET MC PRN (12:26)
[2020-03-01 16:00] VITALS: BP 101/60
[2020-03-01] MEDS: IV 1/2NS 1000 ML 1,000 ML IV PRN (17:08)
--- NOTE | 2020-03-01 18:00 | NUR ---
RN Closing note Patient in bed resting does no appears pain or distress. Skin is warm to touch intact midline site on upper arm, given Foreman and rectal tube care, latest temperature 98.8. Respiratory even and unlabored with oxygen at 5LPM through T-piece O2sat 100%. Pt will have colostomy tomorrow, will start NPO after mid night. Kept locked bed with elevated HOB for ensure airway and aspiration precaution also lowest position for safety, call light within reach, will endorse hydraulic mechanic.
[2020-03-01 20:00] VITALS: BP 118/67
[2020-03-01] MEDS: DONEPEZIL 5 MG TABLET GT SCH (23:37)
[2020-03-01] MEDS: ATORVASTATIN 40 MG TABLET GT SCH (23:38)
--- NOTE | 2020-03-01 23:52 | NUR ---
BLOOD [id number], NO INSULIN GIVEN. PATIENT IS NPO NOW, GT FEEDING HELD. NO GT FEEDING RESIDUAL NOTED. GT FLUSHED WITH WATER.
--- NOTE | 2020-03-02 02:06 | NUR ---
SACRAL WOUND TREATMENT DONE, AND DRESSING CHANGED. SCROTUM WOUND DRESSING CHANGED. TURNED AND REPOSITIONED. OFFLOADED. GT SITE DRESSING CHANGED, NO SKIN IRRITATIONS NOTED. GT CLAMPED EARLIER. HOB ELEVATED AT ALL TIMES.
[2020-03-02] MEDS: IPRATROPIUM/ALBUTEROL INHALER IH SCH (02:44)
[2020-03-02] MEDS: VANCOMYCIN 0.75 GM in IV D5W 250 ML IV SCH ×2 (02:47→15:18)
--- NOTE | 2020-03-02 05:17 | NUR ---
MS RN OPENING NOTES RECEIVED PATIENT ON BED SLEEPING, EASILY AROUSABLE BY NAME AND LIGHT TOUCH. PATIENT IN NO APPARENT RESPIRATORY DISTRESS NOTED. NO SIGN AND SYMPTOM OF PAIN NOTED AT THIS TIME. BED ALARM ON FOR SAFETY. WILL CONTINUE TO MONITOR FOR ANY CHANGES.
[2020-03-02] MEDS: MEROPENEM 1 G in IV NS 0.9% 100 ML IV SCH ×3 (05:30→21:15)
--- NOTE | 2020-03-02 06:19 | NUR ---
CALLED THE FAMILY MEMBER-MADDI AND LEFT MESSAGES FOR CALL BACK RE: TO OBTAIN A TELEPHONE CONSENT FOR SURGERY TODAY. CHARGE NURSE MADE AWARE.
--- NOTE | 2020-03-02 06:50 | NUR ---
RECEIVED A CALL FROM THE SURGERY DEPARTMENT AND INFORMED HER THAT THE CONSENT IS NOT SIGN YET, AND INFORMED HER ALSO THAT NEXT OF KIN WAS- MADDI WAS CALLED AND LEFT MESSAGES. NO CALL BACK YET.
--- NOTE | 2020-03-02 07:00 | NUR ---
CALLED DR MARROQUIN RE: INFORMING HIM THAT CONSENT IS NOT SIGN YET AND THAT THE NEXT OF KIN MADDI WAS ALREADY CALLED AND MESSAGES LEFT FOR CALL BACK, DID NOT CALL BACK YET.
--- NOTE | 2020-03-02 07:45 | NUR ---
MS/RN OPENING NOTES RECEIVED PATIENT ON BED SLEEPING, EASILY AROUSABLE BY NAME AND LIGHT TOUCH. PATIENT IN NO APPARENT RESPIRATORY DISTRESS NOTED. NO SIGN AND SYMPTOM OF PAIN NOTED AT THIS TIME. WILL CONTINUE TO MONITOR.
[2020-03-02] MEDS: BLOOD SUGAR DIAGNOSTIC 1 EACH STRIP VI SCH ×4 (07:57→22:03)
[2020-03-02 08:00] VITALS: BP 89/57
[2020-03-02] MEDS ORDERED: LIDOCAINE HCL/PF 1% 30 ML SDV ONE (08:30)
[2020-03-02] MEDS ORDERED: BUPIVACAINE MPF 0.5% W/EPI INJ 30 ML VIAL ONE (08:31)
[2020-03-02 08:40] LABS: BASOPHILS # (AUTO) 0.1 /CMM (0.0-0.2); BASOPHILS % (AUTO) 0.5 % (0.0-2.0); EOSINOPHILS % (AUTO) 1.3 % (0.0-6.0); HEMATOCRIT 25 % (39-51); HEMOGLOBIN 8.3 g/dL (13.5-17.5); LYMPHOCYTES # (AUTO) 2.2 /CMM (0.8-4.8); LYMPHOCYTES % (AUTO) 20.5 % (20.0-44.0); MEAN CORPUSCULAR HGB CONC 33 g/dl (31.0-36.0); MEAN CORPUSCULAR VOLUME 88 fL (80-96); MONOCYTES # (AUTO) 0.8 /CMM (0.1-1.30); NEUTROPHILS # (AUTO) 7.4 /CMM (1.8-8.9); NEUTROPHILS % (AUTO) 69.7 % (43.0-81.0); PLATELET COUNT (AUTO) 307 /CMM (150-450); RED BLOOD CELL COUNT(AUTO) 2.86 MIL/uL (4.5-6.0); WHITE BLOOD COUNT (AUTO) 10.6 K/uL (4.3-11.0)
[2020-03-02] MEDS: FIXODENT DENTURE ADHESIVE TUBE MM SCH ×2 (09:00→16:40)
[2020-03-02] MEDS: PANTOPRAZOLE 40 MG/PACK PACK GT SCH (09:00)
[2020-03-02] MEDS: MULTIVITAMINS,THERAGRAN 1 UDTAB TABLET GT SCH (09:00)
[2020-03-02] MEDS: FAMOTIDINE (20 MG) 20 MG TABLET PO SCH (09:00)
[2020-03-02] MEDS: DOCUSATE SODIUM LIQ 100 MG/10 ML UDC PO SCH ×2 (09:00→16:36)
[2020-03-02] MEDS: MEMANTINE HCL 5 MG TABLET GT SCH ×2 (09:00→16:36)
[2020-03-02] MEDS: ASCORBIC ACID 500 MG TABLET GT SCH (09:00)
[2020-03-02] MEDS: PROSOURCE / PROSTAT (PYXIS) 30 ML UDC GT SCH ×4 (09:00→21:24)
[2020-03-02] MEDS ORDERED: ROCURONIUM BROMIDE 50 MG/5 ML ONE ×2 (09:08→09:59)
[2020-03-02] MEDS ORDERED: HYDROMORPHONE INJ 2 MG/ML DISP.SYRIN ONE (09:08)
--- NOTE | 2020-03-02 09:15 | NUR ---
MS/RN NOTES PATIENT PODIATRY TEACHER BY WET WASH ASSEMBLER. PATIENT IN NO APPARENT RESPIRATORY DISTRESS NOTED. NO SIGN AND SYMPTOM OF PAIN NOTED.
[2020-03-02 09:25] LABS: CALCIUM, SERUM 7.3 mg/dL (8.5-10.1); CREATININE 0.7 mg/dL (0.6-1.3); POTASSIUM 3.9 mmol/L (3.5-5.1)
[2020-03-02] MEDS: DAKINS QUARTER STRENGTH (0.125%) 480 ML BOTTLE TOP SCH (10:23)
[2020-03-02] MEDS ORDERED: HYDROCODONE/APAP 5/325MG TABLET PO PRN (11:30)
[2020-03-02] MEDS ORDERED: EPHEDRINE SULFATE IV 50MG VIAL ONE ×2 (12:28→12:39)
--- NOTE | 2020-03-02 13:10 | NUR ---
MS/RN NOTES PATIENT CAME BACK FROM OR. PATIENT IN NO APPARENT RESPIRATORY DISTRESS NOTED. BP 109/57 P 82 SAO2 98% TEMP 98. NO SIGN AND SYMPTOM NOTED AT THIS TIME. WILL CONTINUE TO MONITOR.
--- NOTE | 2020-03-02 13:11 | NUR ---
patient went for surgery at this moment Addendum: 03/02/20 at 1311 by CASSANDRA DURÁN RT Amended: Links added.
[2020-03-02] MEDS: IV 1/2NS 1000 ML 1,000 ML IV PRN (13:40)
[2020-03-02] MEDS: GLUCERNA 1.2 1,000 ML BOTTLE GT PRN (13:40)
[2020-03-02] MEDS: DIGOXIN 0.125 MG TABLET GT SCH (13:40)
[2020-03-02 16:00] VITALS: BP 137/68
--- NOTE | 2020-03-02 18:52 | NUR ---
MS/RN CLOSING NOTES PATIENT IS ON BED,ALERT AND ORIENTED X1-2. PATIENT IS T-PIECE AT THE PRESCRIBED SETTING TOLERATED WELL. PATIENT IN NO APPARENT RESPIRATORY DISTRESS NOTED AT THIS TIME.NO SIGN AND SYMPTOM OF NOTED AT THIS TIME. IV ACCESS AT RIGHT UPPER ARM MIDLINE WITH IV FLUID OF 1/2 NS AT 75ML/HR ON AND INFUSING WELL. SEEN AND EXAMINED BY MD WITH ORDERS MADE AND CARRIED OUT. ALL DUE MEDICATION WAS GIVEN. SAFETY PRECAUTION WAS IN PLACED. BED IN LOWEST POSITION AND LOCKED. SIDERAILS UP X2 AND LOCKED. CALL LIGHT WITHIN REACH. WILL ENDORSED TO AUDIO VISUAL COORDINATOR FOR ERIC.
--- NOTE | 2020-03-02 20:10 | NUR ---
MS RN NOTE PATIENT'S BODY TEMPERATURE NOTED TO BE 102.7 AT THIS TIME, COLD SPONGING BEING DONE. WILL REASSESS & GIVE MEDICINE PRN.
[2020-03-02] MEDS: ACETAMINOPHEN 325 MG TABLET PO PRN (21:27)
--- NOTE | 2020-03-02 21:29 | NUR ---
MS RN NOTE PATIENT'S BODY TEMPERATURE IS 100.7, ORALLY AT THIS TIME. PRN TYLENOL 650 MG GIVEN VIA GT. WILL CONTINUE TO MONITOR FOR ANY CHANGES.
[2020-03-02] MEDS: *INSULIN REGULAR(HUMULIN R)HUM 100 UNIT/ML VIAL SQ PRN (22:09)
[2020-03-02] MEDS: DONEPEZIL 5 MG TABLET GT SCH (22:11)
[2020-03-02] MEDS: ATORVASTATIN 40 MG TABLET GT SCH (22:11)
--- NOTE | 2020-03-02 22:45 | NUR ---
MS RN NOTE RECHECKED PATIENT'S BODY TEMP, 98.7, ORALLY AT THIS TIME, SLEEPING COMFORTABLY, NO ACUTE DISTRESS NOTED. WILL CONTINUE TO MONITOR.
[2020-03-03] MEDS: IV 1/2NS 1000 ML 1,000 ML IV PRN ×2 (04:06→20:19)
[2020-03-03] MEDS: GLUCERNA 1.2 1,000 ML BOTTLE GT PRN ×2 (04:14→22:32)
[2020-03-03] MEDS: MEROPENEM 1 G in IV NS 0.9% 100 ML IV SCH ×3 (05:02→21:17)
[2020-03-03 06:11] LABS: BASOPHILS % (AUTO) 0.2 % (0.0-2.0); EOSINOPHILS % (AUTO) 1.2 % (0.0-6.0); HEMATOCRIT 23 % (39-51); HEMOGLOBIN 7.5 g/dL (13.5-17.5); LYMPHOCYTES # (AUTO) 1.7 /CMM (0.8-4.8); LYMPHOCYTES % (AUTO) 13.4 % (20.0-44.0); MEAN CORPUSCULAR HGB CONC 32 g/dl (31.0-36.0); MEAN CORPUSCULAR VOLUME 89 fL (80-96); MONOCYTES # (AUTO) 0.5 /CMM (0.1-1.30); MONOCYTES % (AUTO) 4.4 % (2.0-12.0); NEUTROPHILS % (AUTO) 80.8 % (43.0-81.0); PLATELET COUNT (AUTO) 275 /CMM (150-450); RED BLOOD CELL COUNT(AUTO) 2.61 MIL/uL (4.5-6.0); WHITE BLOOD COUNT (AUTO) 12.3 K/uL (4.3-11.0)
[2020-03-03 07:00] LABS: CALCIUM, SERUM 7.4 mg/dL (8.5-10.1); CREATININE 0.8 mg/dL (0.6-1.3); POTASSIUM 4.2 mmol/L (3.5-5.1)
--- NOTE | 2020-03-03 07:15 | NUR ---
MS RN NOTE PATIENT IS QUIET, RESTING IN BED, AFEBRILE AFTER GIVING TYLENOL VIA GT. NO ACUTE DISTRESS NOTED. ENDORSED TO AM RN FOR CONTINUITY OF CARE.
[2020-03-03] MEDS: BLOOD SUGAR DIAGNOSTIC 1 EACH STRIP VI SCH ×4 (07:17→22:32)
--- NOTE | 2020-03-03 07:20 | NUR ---
RN MS OPENING NOTES RECEIVED PT IN BED AWAKE IN NO ACUTE SIGNS OF DISTRESS. HOB ELEVATED. ALERT TO SELF AND ABLE TO MOUTH WORDS, DENIES PAIN OR ANY DISCOMFORTS AT THIS TIME. ON COOL AEROSOL T-PIECE PORTEX #8, TOLERATING WELL WITH NO S/S RESPIRATORY DISTRESS NOTED. JORDON MIDLINE G#18 INTACT AND PATENT WITH 1/2 NS INFUSING AT 75ML/HR. G-TUBE IN PLACE AND PATENT, GT FEEDING OF GLUCERNA 1.2 INFUSING AT 65ML/HR, TOLERATING WELL. WILL PAUSE FEEDINGS AT 0800 AND RESUME AT 1200. ASPIRATION PRECAUTIONS MAINTAINED. SANDOVAL CATH IN PLACE WITH CLEAR YELLOW URINE OUT PUT NOTED. COLONOSCOPY ON LEFT LOWER QUADRANT INTACT WITH DARK RED BLOOD . SAFETY MEASURES IN PLACE: BED LOW AND LOCKED. SIDE RAILS UP X3. CALL LIGHT WITHIN REACH. WILL CONTINUE TO MONITOR.
[2020-03-03 08:00] VITALS: BP 110/50
[2020-03-03] MEDS: ACETAMINOPHEN 325 MG TABLET MC PRN (08:17)
[2020-03-03] MEDS: FUROSEMIDE 20 MG TABLET PO SCH (08:17)
[2020-03-03] MEDS: MEMANTINE HCL 5 MG TABLET GT SCH ×2 (08:17→17:01)
[2020-03-03] MEDS: PROSOURCE / PROSTAT (PYXIS) 30 ML UDC GT SCH ×4 (08:17→21:17)
[2020-03-03] MEDS: MULTIVITAMINS,THERAGRAN 1 UDTAB TABLET GT SCH (08:17)
[2020-03-03] MEDS: FAMOTIDINE (20 MG) 20 MG TABLET PO SCH (08:17)
[2020-03-03] MEDS: PANTOPRAZOLE 40 MG/PACK PACK GT SCH (08:17)
[2020-03-03] MEDS: ASCORBIC ACID 500 MG TABLET GT SCH (08:17)
[2020-03-03] MEDS: DOCUSATE SODIUM LIQ 100 MG/10 ML UDC PO SCH ×2 (08:17→17:01)
[2020-03-03] MEDS: FIXODENT DENTURE ADHESIVE TUBE MM SCH ×2 (09:24→17:02)
[2020-03-03] MEDS: DAKINS QUARTER STRENGTH (0.125%) 480 ML BOTTLE TOP SCH (09:24)
[2020-03-03] MEDS: INSULIN REGULAR, HUMAN 100 UNIT/ML 3 ML VIAL SQ PRN ×2 (11:58→17:38)
[2020-03-03] MEDS: DIGOXIN 0.125 MG TABLET GT SCH (13:17)
[2020-03-03] MEDS: IPRATROPIUM/ALBUTEROL INHALER IH SCH ×3 (14:27→19:30)
[2020-03-03 16:00] VITALS: BP 107/50
--- NOTE | 2020-03-03 18:58 | NUR ---
RN MS CLOSING NOTES PT IN BED AWAKE AT THIS TIME IN NO ACUTE SIGNS OF DISTRESS. HOB ELEVATED. ALERT TO SELF AND ABLE TO MOUTH WORDS. ON COOL AEROSOL T-PIECE PORTEX #8, TOLERATING WELL WITH NO S/S RESPIRATORY DISTRESS NOTED. JORDON MIDLINE G#18 INTACT AND PATENT WITH 1/2 NS INFUSING AT 75ML/HR. G-TUBE IN PLACE AND PATENT, GT FEEDING OF GLUCERNA 1.2 INFUSING AT 65ML/HR, TOLERATING WELL. ASPIRATION PRECAUTIONS MAINTAINED. SANDOVAL CATH IN PLACE WITH CLEAR YELLOW URINE OUT PUT NOTED. COLONOSCOPY ON LEFT LOWER QUADRANT INTACT WITH SMALL BLOODY STOOL . PATIENT TURNED AND REPOSITIONED EVERY 2 HOURS. ALL NEEDS AND CARE PROVIDED WELL. SAFETY MEASURES IN PLACE: BED LOW AND LOCKED. SIDE RAILS UP X3. CALL LIGHT WITHIN REACH. WILL ENDORSE TO NEXT SHIFT RN PLAN OF CARE.
--- NOTE | 2020-03-03 19:35 | NUR ---
MS RN OPENING NOTES RECEIVED PT IN BED, AWAKE, IN NO ACUTE SIGNS OF DISTRESS. HOB ELEVATED. ALERT TO SELF AND ABLE TO MOUTH WORDS, DENIES PAIN OR ANY DISCOMFORTS AT THIS TIME. ON COOL AEROSOL T-PIECE PORTEX #8, TOLERATING WELL WITH NO S/S RESPIRATORY DISTRESS NOTED. JORDON MIDLINE, INTACT AND PATENT WITH 1/2 NS INFUSING AT 75ML/HR. G-TUBE IN PLACE AND PATENT, GT FEEDING OF GLUCERNA 1.2 INFUSING AT 65ML/HR, TOLERATING WELL. ASPIRATION PRECAUTIONS MAINTAINED. SANDOVAL CATH IN PLACE WITH CLEAR YELLOW URINE OUT PUT NOTED. COLOSTOMY ON LEFT LOWER QUADRANT INTACT WITH DARK RED BLOOD, SMALL AMOUNT. SAFETY MEASURES IN PLACE: BED LOW AND LOCKED. BED ALARM ON. SIDE RAILS UP X3. CALL LIGHT WITHIN REACH. WILL CONTINUE TO MONITOR.
[2020-03-03 20:00] VITALS: BP 95/51
[2020-03-03 20:05] VITALS: BP 95/51
[2020-03-03] MEDS: DONEPEZIL 5 MG TABLET GT SCH (22:16)
[2020-03-03] MEDS: ATORVASTATIN 40 MG TABLET GT SCH (22:16)
[2020-03-04] MEDS: IPRATROPIUM/ALBUTEROL INHALER IH SCH ×4 (01:30→19:30)
[2020-03-04] MEDS: MEROPENEM 1 G in IV NS 0.9% 100 ML IV SCH ×3 (04:58→21:27)
[2020-03-04] MEDS: ACETAMINOPHEN 325 MG TABLET PO PRN ×2 (05:26→13:39)
--- NOTE | 2020-03-04 05:27 | NUR ---
MS RN NOTE PATIENT'S BODY TEMPERATURE NOTED TO BE 100.2, ORALLY, PRN TYLENOL 650 MG ADMINISTERED VIA GT. WILL REASSESS FOR EFFECTIVENESS.
--- NOTE | 2020-03-04 06:50 | NUR ---
MS RN NOTE PATIENT'S BODY TEMPERATURE IS 98.9 ORALLY. REPOSITIONED IN BED. NO ACUTE DISTRESS NOTED. ALL NEEDS MET. BED IN LOW LOCKED POSITION. WILL ENDORSE TO AM RN FOR CONTINUITY OF CARE.
[2020-03-04] MEDS: BLOOD SUGAR DIAGNOSTIC 1 EACH STRIP VI SCH ×4 (06:59→22:28)
--- NOTE | 2020-03-04 07:30 | NUR ---
received pt. in am alert and oriented x1-2.confused.pale.vs stable.colostomy intact,scant amt. of dark brown drainage with scant reddish drainage.g-tube infusing,rectal tube in place.f/c draining with good amt. yellow urine.
[2020-03-04 08:00] VITALS: BP 90/65
[2020-03-04] MEDS ORDERED: VANCOMYCIN 500 MG in IV D5W 100 ML IV SCH (09:00)
[2020-03-04] MEDS: FAMOTIDINE (20 MG) 20 MG TABLET PO SCH (10:26)
[2020-03-04] MEDS: PANTOPRAZOLE 40 MG/PACK PACK GT SCH (10:26)
[2020-03-04] MEDS: ASCORBIC ACID 500 MG TABLET GT SCH (10:26)
[2020-03-04] MEDS: MULTIVITAMINS,THERAGRAN 1 UDTAB TABLET GT SCH (10:27)
[2020-03-04] MEDS: MEMANTINE HCL 5 MG TABLET GT SCH ×2 (10:27→18:11)
[2020-03-04] MEDS: DOCUSATE SODIUM LIQ 100 MG/10 ML UDC PO SCH ×2 (10:27→18:11)
[2020-03-04] MEDS: PROSOURCE / PROSTAT (PYXIS) 30 ML UDC GT SCH ×4 (10:28→21:27)
[2020-03-04] MEDS: DAKINS QUARTER STRENGTH (0.125%) 480 ML BOTTLE TOP SCH (10:29)
[2020-03-04] MEDS: FIXODENT DENTURE ADHESIVE TUBE MM SCH ×2 (10:30→18:12)
[2020-03-04 11:41] LABS: BASOPHILS % (AUTO) 0.2 % (0.0-2.0); EOSINOPHILS % (AUTO) 0.3 % (0.0-6.0); HEMATOCRIT 26 % (39-51); HEMOGLOBIN 8.2 g/dL (13.5-17.5); LYMPHOCYTES # (AUTO) 1.4 /CMM (0.8-4.8); LYMPHOCYTES % (AUTO) 11.8 % (20.0-44.0); MEAN CORPUSCULAR HGB CONC 32 g/dl (31.0-36.0); MEAN CORPUSCULAR VOLUME 88 fL (80-96); MONOCYTES # (AUTO) 0.7 /CMM (0.1-1.30); MONOCYTES % (AUTO) 5.6 % (2.0-12.0); NEUTROPHILS # (AUTO) 9.9 /CMM (1.8-8.9); NEUTROPHILS % (AUTO) 82.1 % (43.0-81.0); PLATELET COUNT (AUTO) 267 /CMM (150-450); RED BLOOD CELL COUNT(AUTO) 2.93 MIL/uL (4.5-6.0); WHITE BLOOD COUNT (AUTO) 12.1 K/uL (4.3-11.0)
[2020-03-04] MEDS: IV 1/2NS 1000 ML 1,000 ML IV PRN (11:41)
--- NOTE | 2020-03-04 12:00 | NUR ---
hob elevated,no changes.no residual on t.feed.
[2020-03-04 12:37] LABS: BILIRUBIN,TOTAL 0.2 mg/dL (0.2-1.0); CALCIUM, SERUM 7.4 mg/dL (8.5-10.1); CREATININE 0.7 mg/dL (0.6-1.3); POTASSIUM 4.1 mmol/L (3.5-5.1); TOTAL PROTEIN, SERUM 5.1 g/dL (6.4-8.2)
[2020-03-04 12:38] LABS: ALBUMIN 1.1 g/dL (3.4-5.0)
[2020-03-04 13:15] LABS: IRON, SERUM 17 ug/dl (50-175); TOTAL IRON BINDING CAPACITY 74 ug/dl (250-450)
[2020-03-04] MEDS: DIGOXIN 0.125 MG TABLET GT SCH (13:38)
[2020-03-04] MEDS: *INSULIN REGULAR(HUMULIN R)HUM 100 UNIT/ML VIAL SQ PRN (13:53)
[2020-03-04 16:00] VITALS: BP 97/52
[2020-03-04] MEDS: GLUCERNA 1.2 1,000 ML BOTTLE GT PRN (17:52)
--- NOTE | 2020-03-04 18:30 | NUR ---
colostomy bag leaking for lrg. amt. dark brown liq.completely changed.f/c with good output.
--- NOTE | 2020-03-04 19:30 | NUR ---
MS RN NOTE RECEIVED PT. A/O X 1-2. COLOSTOMY INTACT WITH BROWN AND RED DRAINAGE. FC DRAINING YELLOW URINE, G-TUBE IN FUSING. JORDON IV 20 G PATENT. WILL CONTINUE TO MONITOR
[2020-03-04 20:00] VITALS: BP 100/56
[2020-03-04 20:11] LABS: FERRITIN 4925 ng/mL (8-388)
[2020-03-04] MEDS: DONEPEZIL 5 MG TABLET GT SCH (22:13)
[2020-03-04] MEDS: ATORVASTATIN 40 MG TABLET GT SCH (22:13)
[2020-03-05] VITALS (8 sets, daily range): BP systolic 90–102; BP diastolic 41–63
[2020-03-05] MEDS: IPRATROPIUM/ALBUTEROL INHALER IH SCH ×4 (01:00→19:30)
[2020-03-05] MEDS: IV 1/2NS 1000 ML 1,000 ML IV PRN ×2 (04:38→22:21)
[2020-03-05] MEDS: MEROPENEM 1 G in IV NS 0.9% 100 ML IV SCH ×3 (05:07→22:21)
[2020-03-05 06:02] LABS: BASOPHILS % (AUTO) 0.2 % (0.0-2.0); EOSINOPHILS % (AUTO) 1.9 % (0.0-6.0); HEMATOCRIT 23 % (39-51); HEMOGLOBIN 7.3 g/dL (13.5-17.5); LYMPHOCYTES # (AUTO) 1.4 /CMM (0.8-4.8); MEAN CORPUSCULAR HGB CONC 32 g/dl (31.0-36.0); MEAN CORPUSCULAR VOLUME 90 fL (80-96); MONOCYTES # (AUTO) 0.6 /CMM (0.1-1.30); MONOCYTES % (AUTO) 5.2 % (2.0-12.0); NEUTROPHILS # (AUTO) 9.1 /CMM (1.8-8.9); NEUTROPHILS % (AUTO) 80.7 % (43.0-81.0); PLATELET COUNT (AUTO) 210 /CMM (150-450); RED BLOOD CELL COUNT(AUTO) 2.57 MIL/uL (4.5-6.0); WHITE BLOOD COUNT (AUTO) 11.3 K/uL (4.3-11.0)
[2020-03-05 06:23] LABS: CALCIUM, SERUM 6.6 mg/dL (8.5-10.1); CREATININE 0.5 mg/dL (0.6-1.3); POTASSIUM 3.9 mmol/L (3.5-5.1)
[2020-03-05] MEDS: BLOOD SUGAR DIAGNOSTIC 1 EACH STRIP VI SCH ×4 (06:34→22:21)
--- NOTE | 2020-03-05 07:30 | NUR ---
MS/RN OPENING NOTE Patient in bed, A&O x 1-2, nods upon yes/no questions. Denies any pain/discomfort at this time. Breathing even and non-labored on 6L humidified oxygen via T-piece trach, portex #8, saturating well at 97-98%. No respiratory or cardiac distress noted. Midline access noted on JORDON, running at 1/2 NS @ 75 ml/hr, patent and intact. G-tube in place, no gastric residual noted, patent and intact, and running Glucerna 1.2 @ 65 ml/hr. Rectal tube in place, draining scant amount of BM. Foreman in place, draining clear yellow urine well. Colostomy bag noted. Bed locked to its lowest position, side rails x 2 up, call light in hand. Will continue with current medical management.
--- NOTE | 2020-03-05 10:00 | NUR ---
MS/RN NOTE Saroj Dyer at bedside, ordered to transfuse 1 unit of PRBC. Orders carried out, awaiting for blood.
[2020-03-05] MEDS: DOCUSATE SODIUM LIQ 100 MG/10 ML UDC PO SCH ×2 (10:06→17:18)
[2020-03-05] MEDS: FUROSEMIDE 20 MG TABLET PO SCH (10:06)
[2020-03-05] MEDS: MEMANTINE HCL 5 MG TABLET GT SCH ×2 (10:06→17:18)
[2020-03-05] MEDS: PANTOPRAZOLE 40 MG/PACK PACK GT SCH (10:06)
[2020-03-05] MEDS: PROSOURCE / PROSTAT (PYXIS) 30 ML UDC GT SCH ×4 (10:07→22:21)
[2020-03-05] MEDS: ASCORBIC ACID 500 MG TABLET GT SCH (10:07)
[2020-03-05] MEDS: FAMOTIDINE (20 MG) 20 MG TABLET PO SCH (10:07)
[2020-03-05] MEDS: MULTIVITAMINS,THERAGRAN 1 UDTAB TABLET GT SCH (10:07)
[2020-03-05] MEDS: DAKINS QUARTER STRENGTH (0.125%) 480 ML BOTTLE TOP SCH (10:46)
[2020-03-05] MEDS: FIXODENT DENTURE ADHESIVE TUBE MM SCH ×2 (10:46→17:19)
[2020-03-05] MEDS: GLUCERNA 1.2 1,000 ML BOTTLE GT PRN (12:42)
[2020-03-05] MEDS: DIGOXIN 0.125 MG TABLET GT SCH (13:00)
--- NOTE | 2020-03-05 15:00 | NUR ---
MS/RN NOTE CHITO Ta from ID at bedside, assessed patient's stoma noted with scant sanguineous drainage. Cleansed stoma and placed new colostomy bag.
--- NOTE | 2020-03-05 18:00 | NUR ---
MS/RN NOTE Blood transfusion started, patient has no s/s of fever, chills, SOB, itching, back pain, hypotension, tachycardia, chest pain, facial flushing, headache, hematuria, nausea, pulmonary edema, or shock. VS taken, normal within baseline. Started transfusion at 65 mls/hr. Will continue to monitor.
--- NOTE | 2020-03-05 18:15 | NUR ---
MS/RN NOTE Patient able to tolerate blood transfusion well, no adverse reactions noted. Increased transfusion to 125 ml/hr. Will continue to monitor.
--- NOTE | 2020-03-05 18:45 | NUR ---
MS/RN NOTE Patient appears awake and well, tolerating current transfusion, no adverse reactions noted. VSS. Increased transfusion to 150 mls/hr.
--- NOTE | 2020-03-05 19:30 | NUR ---
MS/RN CLOSING NOTE Patient in bed, A&O x 1-2. All needs met and attended to. Denies any pain/discomfort at this time. Breathing even and non-labored on 6L humidified oxygen via T-piece trach, portex #8, saturating well at 97-98%. No respiratory or cardiac distress noted. Midline access noted on JORDON, running blood transfusion at 150 mls/hr, patent and intact. G-tube in place, no gastric residual noted, patent and intact, and running Glucerna 1.2 @ 65 ml/hr. Rectal tube in place, draining scant amount of BM. Foreman in place, draining clear yellow urine well with an output of 1550 cc. Colostomy bag noted with 100 cc of BM. Fall precautions maintained. Will endorse to night supervisor nurse.
--- NOTE | 2020-03-05 19:30 | NUR ---
MS RN OPENING NOTE RECEIVED PATIENT IN BED. A/OX1-2, NODS TO YES OR NO QUESTIONS. ON OXYGEN 6L/MIN VIA TPIECE WITH HUMIDIFIED O2, PORTEX #8. RESPIRATIONS ARE EVEN AND UNLABORED. NO S/S SOB NOTED. NO S/S PAIN NOTED AT THIS TIME. INNO APPARENT DISTRESS. IV ACCESS IN JORDON MIDLINE RUNNING 1/2NS @75ML/HR AND BLOOD RUNNING @150ML/HR. FLEXISEAL PRESENT. COLOSTOMY BAG PRESENT. SANDOVAL CATHETER PRESENT AND DRAINING TO GRAVITY. GTUBE IS PRESENT, NO RESIDUAL, FLUSHED WITHOUT RESISTANCE, FEEDING RUNNING GLUCERNA 1.2@65ML/HR. BED IS LOW AND LOCKED, HOB ELEVATED, SIDE RIALS UP X3, ON SPECIALTY MATRESS, CALL LIGHT WITHIN REACH. WILL CONTINUE TO MONITOR.
[2020-03-05] MEDS: DONEPEZIL 5 MG TABLET GT SCH (22:22)
[2020-03-05] MEDS: ATORVASTATIN 40 MG TABLET GT SCH (22:23)
[2020-03-06] MEDS: ACETAMINOPHEN 325 MG TABLET PO PRN (00:28)
--- NOTE | 2020-03-06 00:28 | NUR ---
ms rn note patients temp after blood transfusionwas 99.6. turned on AC ,took off excess linen. reassessment now at 0000. temp is 99.7. will administer prn tylenol 650mg. will continue to monitor.
[2020-03-06] MEDS: IPRATROPIUM/ALBUTEROL INHALER IH SCH ×4 (01:30→19:30)
[2020-03-06] MEDS: MEROPENEM 1 G in IV NS 0.9% 100 ML IV SCH ×2 (04:33→12:39)
[2020-03-06] MEDS: GLUCERNA 1.2 1,000 ML BOTTLE GT PRN (05:24)
[2020-03-06 06:48] LABS: CALCIUM, SERUM 7.3 mg/dL (8.5-10.1); CREATININE 0.8 mg/dL (0.6-1.3); POTASSIUM 4.4 mmol/L (3.5-5.1)
[2020-03-06] MEDS: BLOOD SUGAR DIAGNOSTIC 1 EACH STRIP VI SCH ×3 (06:52→18:05)
--- NOTE | 2020-03-06 07:30 | NUR ---
MS RN CLOSING NOTE PATIENT RESTING IN BED. A/OX1-2,REMAINS ON OXYGEN 6L/MIN VIA TPIECE WITH HUMIDIFIED O2, PORTEX #8. NO RESP DISTRESS. NO PAIN. NO DISTRESS. IV ACCESS MAINTAINED IN JORDON MIDLINE RUNNING 1/2NS @75ML/HR. FLEXISEAL MAINTAINED,NO OUTPUT. COLOSTOMY BAG CHANGED. SANDOVAL CATHETER MAINTAINED AND DRAINING TO GRAVITY. GTUBE IS MAINTAINED RUNNING GLUCERNA 1.2@65ML/HR. BED REMAINS LOW AND LOCKED, HOB ELEVATED, SIDE RIALS UP X3, ON SPECIALTY MATRESS, CALL LIGHT WITHIN REACH. WILL EENDORSE TO NEXT SHIFT.
--- NOTE | 2020-03-06 07:35 | NUR ---
MS RN OPENING NOTES PATIENT RESTING IN BED, ASLEEP. PATIENT ON OXYGEN 6L/MIN VIA T-PIECE WITH HUMIDIFIED O2, PORTEX #8. NO RESP DISTRESS. NO S/S OF PAIN SUCH FACIAL GRIMACING, GUARDING OR MOANING. IV ACCESS IN JORDON MIDLINE RUNNING 1/2NS @75ML/HR. FLEXISEAL IN PLACE. COLOSTOMY BAG IN PLACE WELL. SANDOVAL CATHETER MAINTAINED AND DRAINING TO GRAVITY. G-TUBE IS MAINTAINED RUNNING GLUCERNA 1.2@65ML/HR. SAFETY PRECAUTIONS IN PLACE; BED IN LOW POSITION AND LOCKED, HOB ELEVATED, SIDE RIALS UP X3, ON SPECIALTY MATTRESS, CALL LIGHT WITHIN REACH. WILL CONTINUE TO MONITOR PATIENT.
[2020-03-06 08:00] VITALS: BP 117/62
[2020-03-06] MEDS: DAKINS QUARTER STRENGTH (0.125%) 480 ML BOTTLE TOP SCH (08:30)
[2020-03-06] MEDS: MULTIVITAMINS,THERAGRAN 1 UDTAB TABLET GT SCH (08:34)
[2020-03-06] MEDS: ASCORBIC ACID 500 MG TABLET GT SCH (08:34)
[2020-03-06] MEDS: MEMANTINE HCL 5 MG TABLET GT SCH ×2 (08:34→17:45)
[2020-03-06] MEDS: FAMOTIDINE (20 MG) 20 MG TABLET PO SCH (08:34)
[2020-03-06] MEDS: DOCUSATE SODIUM LIQ 100 MG/10 ML UDC PO SCH ×2 (08:34→17:45)
[2020-03-06] MEDS: PROSOURCE / PROSTAT (PYXIS) 30 ML UDC GT SCH ×3 (08:35→17:45)
[2020-03-06] MEDS: PANTOPRAZOLE 40 MG/PACK PACK GT SCH (08:36)
[2020-03-06] MEDS: FIXODENT DENTURE ADHESIVE TUBE MM SCH ×2 (09:00→17:00)
[2020-03-06 10:23] LABS: BASOPHILS # (AUTO) 0.1 /CMM (0.0-0.2); BASOPHILS % (AUTO) 0.5 % (0.0-2.0); EOSINOPHILS % (AUTO) 1.8 % (0.0-6.0); HEMATOCRIT 28 % (39-51); HEMOGLOBIN 8.9 g/dL (13.5-17.5); LYMPHOCYTES # (AUTO) 2.1 /CMM (0.8-4.8); LYMPHOCYTES % (AUTO) 18.8 % (20.0-44.0); MEAN CORPUSCULAR HGB CONC 32 g/dl (31.0-36.0); MEAN CORPUSCULAR VOLUME 88 fL (80-96); MONOCYTES # (AUTO) 0.7 /CMM (0.1-1.30); MONOCYTES % (AUTO) 6.6 % (2.0-12.0); NEUTROPHILS # (AUTO) 8.2 /CMM (1.8-8.9); NEUTROPHILS % (AUTO) 72.3 % (43.0-81.0); PLATELET COUNT (AUTO) 270 /CMM (150-450); RED BLOOD CELL COUNT(AUTO) 3.17 MIL/uL (4.5-6.0); WHITE BLOOD COUNT (AUTO) 11.4 K/uL (4.3-11.0)
[2020-03-06] MEDS: DIGOXIN 0.125 MG TABLET GT SCH (13:00)
--- NOTE | 2020-03-06 14:58 | NUR ---
MS RN NOTES 1300 DIGOXIN HELD DUE TO HR <60
[2020-03-06 16:00] VITALS: BP 95/58
--- NOTE | 2020-03-06 19:38 | NUR ---
MS PROFESSOR OF ART HISTORY NOTES PATIENT DISCHARGED BACK TO SNF IN MEDICALLY STABLE CONDITION. PATIENT ON TRACH 6L BREATHING EVEN AND UNLABORED. NO COMPLAINS OF PAIN; VITAL SIGNS WITHIN NORMAL LIMITS. ALL DOCUMENTS READY AND SIGNED BY 2 RNs DUE TO PATIENT BEING UNABLE TO SIGN ON HIS OWN. BELONGINGS WITH PATIENT AND VALUABLE FORM SIGNED WELL. SNF CALLED AND REPORT GIVEN TO RN. PER SNF PATIENT LEFT WITH JORDON MIDLINE. PATIENT PICKED UP BY 2 marble helper AND LEFT THE FLOOR at 1845.
== END 2020-03-06 19:00 | DRG 853 ==
LOC: ER 20:40 → TELE 02-24 17:11 → MED 02-26 11:27
PROVIDERS: ADMIT Internal Medicine; ATTEND Nurse Practitioner Acute Care
PROC: 30233N1 Transfusion of Nonautologous Red Blood Cells into Peripheral Vein, Percutaneous Approach (ICD-10-PCS; 2020-02-25)
PROC: 05H933Z Insertion of Infusion Device into Right Brachial Vein, Percutaneous Approach (ICD-10-PCS; 2020-02-25)
PROC: 0QB30ZZ Excision of Left Pelvic Bone, Open Approach (ICD-10-PCS; principal; 2020-02-28)
PROC: 0QB10ZZ Excision of Sacrum, Open Approach (ICD-10-PCS; 2020-02-28)
PROC: 0QB20ZZ Excision of Right Pelvic Bone, Open Approach (ICD-10-PCS; 2020-02-28)
PROC: 0D1N4Z4 Bypass Sigmoid Colon to Cutaneous, Percutaneous Endoscopic Approach (ICD-10-PCS; 2020-03-02)
DX: A41.9 Sepsis, unspecified organism (principal); L89.154 Pressure ulcer of sacral region, stage 4; L89.324 Pressure ulcer of left buttock, stage 4; L89.314 Pressure ulcer of right buttock, stage 4; L89.894 Pressure ulcer of other site, stage 4; N17.0 Acute kidney failure with tubular necrosis; E43 Unspecified severe protein-calorie malnutrition; J96.20 Acute and chronic respiratory failure, unspecified whether with hypoxia or hypercapnia; N39.0 Urinary tract infection, site not specified; E87.1 Hypo-osmolality and hyponatremia; D68.59 Other primary thrombophilia; M86.9 Osteomyelitis, unspecified; E87.3 Alkalosis; G93.40 Encephalopathy, unspecified; Z16.12 Extended spectrum beta lactamase (ESBL) resistance; E87.0 Hyperosmolality and hypernatremia; D63.8 Anemia in other chronic diseases classified elsewhere; K66.0 Peritoneal adhesions (postprocedural) (postinfection); D50.0 Iron deficiency anemia secondary to blood loss (chronic); E78.5 Hyperlipidemia, unspecified; E86.1 Hypovolemia; I25.10 Atherosclerotic heart disease of native coronary artery without angina pectoris; I35.0 Nonrheumatic aortic (valve) stenosis; K21.9 Gastro-esophageal reflux disease without esophagitis; Z74.01 Bed confinement status; Z86.14 Personal history of Methicillin resistant Staphylococcus aureus infection; Z86.73 Personal history of transient ischemic attack (TIA), and cerebral infarction without residual deficits; Z87.891 Personal history of nicotine dependence; Z98.61 Coronary angioplasty status; Z93.1 Gastrostomy status; R13.10 Dysphagia, unspecified; E11.69 Type 2 diabetes mellitus with other specified complication; J44.9 Chronic obstructive pulmonary disease, unspecified; I48.0 Paroxysmal atrial fibrillation; F09 Unspecified mental disorder due to known physiological condition; I70.0 Atherosclerosis of aorta; Z20.828 Contact with and (suspected) exposure to other viral communicable diseases; N31.9 Neuromuscular dysfunction of bladder, unspecified; B96.4 Proteus (mirabilis) (morganii) as the cause of diseases classified elsewhere; M48.00 Spinal stenosis, site unspecified; L89.212 Pressure ulcer of right hip, stage 2; Z96.0 Presence of urogenital implants; B96.1 Klebsiella pneumoniae [K. pneumoniae] as the cause of diseases classified elsewhere; B96.20 Unspecified Escherichia coli [E. coli] as the cause of diseases classified elsewhere; B95.2 Enterococcus as the cause of diseases classified elsewhere
CPT/HCPCS: 31720; 36415; 71045-TC; 80048-TC; 80053-TC; 80061-TC; 80202-TC; 81001; 82272-TC; 82728-TC; 82962-TC; 83540-TC; 83605-TC; 83735-TC; 84100-TC; 85025-TC; 85027-TC; 85610-TC; 85730-TC; 86850-TC; 87040-TC; 87070-TC; 87081-TC; 87086-TC; 87186-TC; 93307-TC; 94640; 94640-TC; 94799-TC; A4217; A4623; A6253; A6403; C9803; G0378; J0696; J1170; J1815; J1885; J2185; J2405; J3370; J3490; J7030; J7042; J7050; J7060; P9016-BL

== ENCOUNTER 2020-03-29 11:47 | Inpatient (IN) | payer MEDICARE, OTHER ==
[~2020-03-29] VITALS: Ht 175.3 cm; Wt 70.3 kg
[~2020-03-29 11:47] MED LIST: ACET325T53 GT; AMIN887L GT; APIX5TAB GT; ASCO500C17 GT; ATOR80TA GT; BISA-79 GT; CHLO473M3 MM; CRAN3875 GT; DIGO0.12 GT; DOCU-141 GT; DONE5TAB34 GT; FURO-145 PO; HYDR-4384 PO; INSU100I4 SQ; IPRA4AER IH; LANS30CA56 GT; MAGN400O6 GT; MEMA5TAB GT; MULT-439 GT; NA P133E RC; NUT.237L31 GT; ONDA4TAB11 GT
--- NOTE | 2020-03-29 12:45 | NUR ---
[facility], SENT BY [facility] FOR G TUBE REPLACEMENT. PATIENT A/OX3, ON VENT, TOLERATING CURRENT SETTINGS.
--- NOTE | 2020-03-29 14:00 | NUR ---
DR HARDIN SPEAKING WITH DR CASTRO GO MUSEUM OR ZOO DIRECTOR
[2020-03-29 15:15] LABS: BASOPHILS % (AUTO) 0.1 % (0.0-2.0); HEMATOCRIT 26 % (39-51); HEMOGLOBIN 8.4 g/dL (13.5-17.5); LYMPHOCYTES # (AUTO) 1.8 /CMM (0.8-4.8); LYMPHOCYTES % (AUTO) 8.4 % (20.0-44.0); MEAN CORPUSCULAR HGB CONC 32 g/dl (31.0-36.0); MEAN CORPUSCULAR VOLUME 88 fL (80-96); MONOCYTES % (AUTO) 4.8 % (2.0-12.0); NEUTROPHILS # (AUTO) 18.8 /CMM (1.8-8.9); NEUTROPHILS % (AUTO) 86.7 % (43.0-81.0); PLATELET COUNT (AUTO) 468 /CMM (150-450); RED BLOOD CELL COUNT(AUTO) 2.99 MIL/uL (4.5-6.0); WHITE BLOOD COUNT (AUTO) 21.7 K/uL (4.3-11.0)
[2020-03-29 15:43] LABS: ALBUMIN 1.7 g/dL (3.4-5.0); BILIRUBIN,TOTAL 0.4 mg/dL (0.2-1.0); CALCIUM, SERUM 8.6 mg/dL (8.5-10.1); CREATININE 0.5 mg/dL (0.6-1.3); TOTAL PROTEIN, SERUM 6.2 g/dL (6.4-8.2)
[2020-03-29 15:50] LABS: D-DIMER 1.47 mg/L(FEU (0.17-0.50)
--- NOTE | 2020-03-29 16:36 | NUR ---
PATIENT RESTING, NO DISTRESS NOTED.
[2020-03-29 16:58] LABS: BAND % (MANUAL) 1 % (0.0-5.0); LYMPHOCYTES % (MANUAL) 9 % (16-48); MONOCYTES % (MANUAL) 2 % (0-11.0); NEUTROPHILS % (MANUAL) 88 (42-76)
--- NOTE | 2020-03-29 17:30 | NUR ---
MOVE SHEET SUBMITTED.
[2020-03-29 17:33] LABS: C-REACTIVE PROTEIN 4.8 mg/dL (0.0-0.9)
[2020-03-29] MEDS ORDERED: ZOLPIDEM TARTRATE 5 MG TABLET PO PRN (18:30)
[2020-03-29] MEDS ORDERED: ONDANSETRON HCL/PF 4 MG/2 ML VIAL IVP PRN (18:30)
[2020-03-29] MEDS ORDERED: MAG HYDROX/AL HYDROX/SIMETH 30 ML UDC PO PRN (18:30)
[2020-03-29] MEDS ORDERED: CLINDAMYCIN IV RTU IN D5W 900 MG/50 ML PIGGYBACK IV SCH (18:30)
[2020-03-29] MEDS ORDERED: Z GUARD REMEDY 2 OZ OINT TP PRN (18:30)
[2020-03-29] MEDS ORDERED: MAGNESIUM HYDROXIDE 30 ML UDC PO PRN (18:30)
[2020-03-29] MEDS ORDERED: ACETAMINOPHEN 325 MG TABLET PO PRN (18:30)
[2020-03-29] MEDS ORDERED: HYDROCODONE/APAP 5/325MG TABLET PO PRN (18:30)
[2020-03-29] MEDS ORDERED: BISACODYL (5 MG) 5 MG TABLET.DR GT PRN (19:30)
[2020-03-29] MEDS ORDERED: MAGNESIUM HYDROXIDE 30 ML UDC GT PRN (19:30)
[2020-03-29] MEDS ORDERED: NA PHOS,M-B/NA PHOS,DI-BA 1 EA ENEMA RC PRN (19:30)
[2020-03-29] MEDS: CLINDAMYCIN 600 MG in IV D5W 50 ML IV SCH (20:00)
[2020-03-29] MEDS: APIXABAN 5 MG TABLET GT SCH (21:00)
[2020-03-29] MEDS ORDERED: ATORVASTATIN 40 MG TABLET ONE (21:36)
[2020-03-29] MEDS ORDERED: DONEPEZIL 5 MG TABLET ONE (21:54)
[2020-03-29] MEDS ORDERED: APIXABAN 5 MG TABLET ONE (21:54)
[2020-03-29] MEDS: DONEPEZIL 5 MG TABLET GT SCH (22:00)
[2020-03-29] MEDS: ATORVASTATIN 40 MG TABLET GT SCH (22:00)
--- NOTE | 2020-03-29 22:22 | NUR ---
KRZYSZTOF PEGUERO DNP NOTIFIED OF PATIENT'S HEART RATE AT 39. ALSO, PO/GT MEDS ARE HELD UNTIL TOMORROW PER KRZYSZTOF PEGUERO DNP ORDERS. WILL CONTINUE TO MONITOR PATIENT.
[2020-03-30] MEDS: CLINDAMYCIN 600 MG in IV D5W 50 ML IV SCH ×3 (03:45→19:53)
--- NOTE | 2020-03-30 04:30 | NUR ---
REPORT GIVEN TO ЕЛЕНА ROBINS FOR ERIC.
[2020-03-30 04:33] LABS: BASOPHILS % (AUTO) 0.1 % (0.0-2.0); EOSINOPHILS % (AUTO) 0.6 % (0.0-6.0); HEMATOCRIT 25 % (39-51); HEMOGLOBIN 8.1 g/dL (13.5-17.5); LYMPHOCYTES # (AUTO) 2.4 /CMM (0.8-4.8); LYMPHOCYTES % (AUTO) 13.9 % (20.0-44.0); MEAN CORPUSCULAR HGB CONC 33 g/dl (31.0-36.0); MEAN CORPUSCULAR VOLUME 87 fL (80-96); MONOCYTES # (AUTO) 1.1 /CMM (0.1-1.30); MONOCYTES % (AUTO) 6.7 % (2.0-12.0); NEUTROPHILS # (AUTO) 13.3 /CMM (1.8-8.9); NEUTROPHILS % (AUTO) 78.7 % (43.0-81.0); PLATELET COUNT (AUTO) 447 /CMM (150-450); RED BLOOD CELL COUNT(AUTO) 2.83 MIL/uL (4.5-6.0)
[2020-03-30 04:48] LABS: CALCIUM, SERUM 8.6 mg/dL (8.5-10.1); CREATININE 0.5 mg/dL (0.6-1.3); MAGNESIUM 1.8 mg/dL (1.8-2.4); POTASSIUM 3.6 mmol/L (3.5-5.1)
[2020-03-30 06:30] VITALS: BP 100/48
--- NOTE | 2020-03-30 06:30 | NUR ---
RN ADMITTING NOTE RECEIVED PT FROM ER VIA [facility] ACCOMPANIED BY CANDY ROBINS AND 2 OTHER ER STAFF AND TRANSFERRED TO BED VIA 3 PERSON ASSIST. PATIENT IS ALERT AND ORIENTED X1. PT ON T-PIECE CONNECTED TO OXYGEN AT 5 LPM, WITH RESPIRATIONS EVEN AND UNLABORED. COMPREHENSIVE PHYSICAL ASSESSMENT AND PATIENT CARE DONE. CALL LIGHT WITHIN REACH, SAFETY MEASURES AND ISOLATION PRECAUTION IN PLACE, WILL CONTINUE MONITOR AND ASSESS THROUGHOUT THE SHIFT. WILL CARRY OUT MD ORDERS ACCORDINGLY.
--- NOTE | 2020-03-30 06:45 | NUR ---
RN NOTE TELEPHONE TO [facility] TO VERIFY CODE STATUS, SPOKE WITH BRIDGET, SAID PATIENT IS FULL COD EAND WILL FAX OVER [employer] PROVIDED [facility] FAX NUMBER.
--- NOTE | 2020-03-30 06:46 | NUR ---
PATIENT CLEANED AND TAKEN UP TO ASSIGNED FLOOR.
[2020-03-30] MEDS: IV D5/0.45 NACL 1,000 ML IV PRN ×2 (07:31→22:05)
[2020-03-30 08:00] VITALS: BP 108/50
--- NOTE | 2020-03-30 08:00 | NUR ---
CARD CUTTER AM NOTE RECEIVED PATIENT IS ALERT AND ORIENTED X1. PT ON T-PIECE PORTEX 8 CONNECTED TO OXYGEN AT 5 LPM, WITH O2 SAT OF 97%. RESPIRATIONS EVEN AND UNLABORED. WOUND CARE TX DONE.TURNED EVERY TWO HRS.AFLOAT ARINA HEELS WITH PILLOWS.PLACED HEEL PROTECTORS AT THE BEDSIDE. CALL LIGHT WITHIN REACH, SAFETY MEASURES AND ISOLATION PRECAUTION IN PLACE, WILL CONTINUE MONITOR AND ASSESS THROUGHOUT THE SHIFT
[2020-03-30] MEDS: FUROSEMIDE 20 MG TABLET PO SCH (09:00)
[2020-03-30] MEDS: MULTIVITAMINS,THERAGRAN 1 UDTAB TABLET GT SCH (09:00)
[2020-03-30] MEDS: APIXABAN 5 MG TABLET GT SCH ×2 (09:00→20:52)
[2020-03-30] MEDS: PANTOPRAZOLE 40 MG/PACK PACK GT SCH (09:00)
[2020-03-30] MEDS: ASCORBIC ACID 500 MG TABLET GT SCH (09:00)
[2020-03-30] MEDS ORDERED: Medication Not On Formulary EA (Cran/Vitc/Mannose/Inulin/Brom (Uti-Stat Liquid) 30 MG) GT SCH (09:00)
[2020-03-30] MEDS: PROSTAT (PYXIS) 30 ML UDC GT SCH (09:00)
[2020-03-30] MEDS ORDERED: PANTOPRAZOLE 40 MG VIAL IV SCH (09:00)
[2020-03-30] MEDS: MEMANTINE HCL 5 MG TABLET GT SCH ×2 (09:00→17:00)
[2020-03-30 09:18] VITALS: BP 108/39
[2020-03-30] MEDS: DIGOXIN 0.125 MG TABLET GT SCH (12:34)
[2020-03-30 15:42] VITALS: BP 100/68
[2020-03-30] MEDS: DAKINS QUARTER STRENGTH (0.125%) 480 ML BOTTLE TOP SCH (16:17)
--- NOTE | 2020-03-30 19:00 | NUR ---
TELE/RN OPENING NOTES: RECEIVED PATIENT IS A/OX1 WATCHING TV. VERBALLY RESPONSIVE AND ABLE TO MAKE NEEDS KNOWN. PT ON T-PIECE PORTEX 8 CONNECTED TO OXYGEN AT 5 LPM, WITH O2 SAT OF 98%. NO SOB NOTED, RESPIRATIONS EVEN AND UNLABORED. NO C/O PAIN OF PAIN AT THIS TIME. FLOAT ARINA HEELS WITH PILLOWS. HEEL PROTECTORS AT THE BEDSIDE. TELE READING OF SR 70S. IV ACCESS ON THE JORDON MIDLINE WITH D5 1/2 NS @ 75MLS/HR. CALL LIGHT WITHIN REACH, SAFETY MEASURES AND ISOLATION PRECAUTION IN PLACE, BED IN LOW, LOCKED POSITION WITH SR UPX2. WILL CONTINUE MONITOR AND ASSESS THROUGHOUT THE SHIFT.
[2020-03-30 20:00] VITALS: BP 86/54
[2020-03-30 21:00] VITALS: BP 100/60
[2020-03-30] MEDS: ATORVASTATIN 40 MG TABLET GT SCH (21:34)
[2020-03-30] MEDS: DONEPEZIL 5 MG TABLET GT SCH (21:34)
[2020-03-31] VITALS (13 sets, daily range): BP systolic 92–125; BP diastolic 49–81
[2020-03-31] MEDS: CLINDAMYCIN 600 MG in IV D5W 50 ML IV SCH ×3 (04:13→20:39)
--- NOTE | 2020-03-31 06:55 | NUR ---
TELE/RN CLOSING NOTES: PATIENT REMAINS A/OX1 RESTING COMFORTABLY. ON T-PIECE PORTEX 8 CONNECTED TO OXYGEN AT 5 LPM, WITH O2 SAT OF 95%. NO SOB NOTED, RESPIRATIONS EVEN AND UNLABORED. NO C/O PAIN OF PAIN AT THIS TIME. FLOAT ARINA HEELS WITH PILLOWS. HEEL PROTECTORS AT THE BEDSIDE. TELE READING OF SR 70S. WOUND TREATMENT DONE. PT IS COVID NEGATIVE AND GOING TO ROOM 319. IV ACCESS ON THE JORDON MIDLINE WITH D5 1/2 NS @ 75MLS/HR. CALL LIGHT WITHIN REACH, SAFETY MEASURES AND ISOLATION PRECAUTION IN PLACE, BED IN LOW, LOCKED POSITION WITH SR UPX2. ALL NURSING NEEDS MET AND RENDERED. ALL DUE MEDS GIVEN ORDERED. WILL CONTINUE PLAN OF CARE, WILL ENDORSE TO DAY SHIFT FOR ERIC.
--- NOTE | 2020-03-31 07:12 | NUR ---
RENOVATION PLANT SUPERVISOR NOTES RECEIVED PT IN BED AT THIS TIME. AOX1, NO SOB NOTED, NO S/O PAIN OR FACIAL GRIMACE NOTED, NO S/S OF ANY APPARENT DISTRESS. RESPIRATIONS ARE EVEN AND UNLABORED. PT NOTED WITH COLOSTOMY IN PLACE, SANDOVAL CATHETER IN PLACE DRAINING TO GRAVITY CLEAR YELLOW URINE OUTPUT. PT ON EXTERNAL BIOLOGICAL ENGINEER READING SR IN THE 70S WITH PAC's, TRACH INTACT AND IN PLACE, PORTEX #8, PT NOTED ON OXYGEN @5LPM. PT ON NPO STATUS PENDING PEG PLACEMENT. ASPIRATION AND SAFETY PRECAUTION IN PLACE AND MAINTAINED AT ALL TIMES. BED IN LOWEST LOCKED POSITION, HOB ELEVATED, SIDE RAILS UP X 2, CALL LIGHT AND TABLE WITHIN REACH . WILL CONTINUE WITH PLAN OF CARE.
[2020-03-31 07:43] LABS: BASOPHILS % (AUTO) 0.2 % (0.0-2.0); EOSINOPHILS % (AUTO) 0.3 % (0.0-6.0); HEMATOCRIT 25 % (39-51); LYMPHOCYTES # (AUTO) 2.3 /CMM (0.8-4.8); LYMPHOCYTES % (AUTO) 11.2 % (20.0-44.0); MEAN CORPUSCULAR HGB CONC 32 g/dl (31.0-36.0); MEAN CORPUSCULAR VOLUME 88 fL (80-96); MONOCYTES # (AUTO) 1.2 /CMM (0.1-1.30); MONOCYTES % (AUTO) 5.8 % (2.0-12.0); NEUTROPHILS % (AUTO) 82.5 % (43.0-81.0); PLATELET COUNT (AUTO) 411 /CMM (150-450); RED BLOOD CELL COUNT(AUTO) 2.82 MIL/uL (4.5-6.0); WHITE BLOOD COUNT (AUTO) 20.6 K/uL (4.3-11.0)
--- NOTE | 2020-03-31 07:50 | NUR ---
PT SCHEDULED FOR PEG PLACEMENT. PROCEDURAL CONSENT, CONSENT FOR BLOOD AND CONSENT FOR ANESTHESIA OBTAINED MADDI, ([phone]) OVER THE PHONE AT THIS TIME. CONSENT WITNESS BY ANOTHER NURSE, SHIMON CARRILLO, FILED IN CHART. WILL CONTINUE WITH PLAN OF CARE
[2020-03-31 08:01] LABS: CALCIUM, SERUM 8.1 mg/dL (8.5-10.1); CREATININE 0.5 mg/dL (0.6-1.3); MAGNESIUM 1.5 mg/dL (1.8-2.4); PHOSPHORUS 2.7 mg/dL (2.5-4.9); POTASSIUM 3.4 mmol/L (3.5-5.1)
--- NOTE | 2020-03-31 08:35 | NUR ---
WOUND CARE CONSULT: PT FOLLOWED BY SURGICAL TEAM FOR WOUND CARE. DEFER TO SURGICAL TEAM FOR WOUND TREATMENT PLAN. DISCUSSED SKIN PROTECTION WITH NURSING STAFF. PT IS ON [place] ISOFLEX LOW AIRLOSS BED. MD IN AGREEMENT WITH PLAN OF CARE.
[2020-03-31] MEDS: MULTIVITAMINS,THERAGRAN 1 UDTAB TABLET GT SCH (09:00)
[2020-03-31] MEDS: PANTOPRAZOLE 40 MG/PACK PACK GT SCH (09:00)
[2020-03-31] MEDS: APIXABAN 5 MG TABLET GT SCH ×2 (09:00→22:24)
[2020-03-31] MEDS: MEMANTINE HCL 5 MG TABLET GT SCH ×2 (09:00→16:57)
[2020-03-31] MEDS: FUROSEMIDE 20 MG TABLET PO SCH (09:00)
[2020-03-31] MEDS: ASCORBIC ACID 500 MG TABLET GT SCH (09:00)
[2020-03-31] MEDS ORDERED: FUROSEMIDE 20 MG TABLET PO SCH (09:00)
[2020-03-31] MEDS: PROSTAT (PYXIS) 30 ML UDC GT SCH (09:00)
[2020-03-31] MEDS: DAKINS QUARTER STRENGTH (0.125%) 480 ML BOTTLE TOP SCH (11:10)
[2020-03-31] MEDS: POTASSIUM CL. PREMIX PERIPHER. 50 ML IV SCH ×2 (12:15→15:44)
[2020-03-31] MEDS: IV D5/0.45 NACL 1,000 ML IV PRN (12:19)
--- NOTE | 2020-03-31 12:26 | NUR ---
PT TRANSPORTED BY BED WITH ACLS PROTOCOL IN PLACE TO OR AT THIS TIME FOR PEG PLACEMENT. PT WILL BE TRANSFERRED TO 3WEST ROOM 319 AFTER PROCEDURE. REPORT GIVEN TO SHIMON BERRY. WILL CONTINUE WITH PLAN OF CARE
[2020-03-31] MEDS: DIGOXIN 0.125 MG TABLET GT SCH (14:02)
[2020-03-31] MEDS: Magnesium 1GM/D5W 100ML PREMIX 100 ML IV SCH ×2 (15:20→16:57)
--- NOTE | 2020-03-31 15:30 | NUR ---
PSYCHIATRY RESIDENT NOTES PATIENT RECEIVED FROM POST OP, S/P PEG PLACEMENT. PATIENT ALERT AND ORIENTED X 1, TRACH INTACT AND IN PLACE, PORTEX #8, ON 5 LITERS OF OXYGEN. WILL PLACE PATIENT ON RESTAURANT MGR. ABDOMEN BINDER IN PLACE, G-TUBE SITE INTACT AND PATENT, PER DR CASTRO NPO EXPECT MEDS AND TO RESUME FEEDING IN AM. SAFETY PRECAUTIONS IMPLEMENTED WITH BED LOCKED, BILATERAL SIDE RAILS UP, BED LOCKED, BED IN THE LOWEST POSITION, BED ALARM ON, AND CALL LIGHT WITHIN EASY REACH. WILL CONTINUE WITH PLAN OF CARE.
--- NOTE | 2020-03-31 19:10 | NUR ---
EMPLOYMENT SERVICES DIRECTOR OPENING NOTES RECEIVED PATIENT IN BED AWAKE ALERT AND ORIENTED X 1, ON COOL AEROSOL WITH TRACH IN PLACE, TOLERATING WELL, GTUBE IN PLACE, INTACT AND PATENT, NO RESIDUALS, PATIENT IS NPO EXCEPT MEDS, PER AM REPORT TO START TUBE FEEDING IN AM ORDERED, COLOSTOMY INTACT, SANDOVAL CATHETER INTACT AND DRAINING, ON INFORMATION CLERK SR 98, RIGHT UPPER ARM MIDLINE INTACT AND PATENT, IVF RUNNING ORDERED,ORIENTED TO STAFF AND CALL LIGHT AND KEPT WITHIN REACH, ALL NEEDS ATTENDED.WILL CONTINUE TO MONITOR.
--- NOTE | 2020-03-31 19:34 | NUR ---
ENTERPRISE ARCHITECT NOTES PATIENT IN BED RESTING COMFORTABLY. ALERT AND ORIENTED X 1, TRACH INTACT AND IN PLACE, PORTEX #8, ON 5 LITERS OF OXYGEN. ON OUTDOOR STUDIES PROFESSOR SR 99. ABDOMEN BINDER IN PLACE, G-TUBE SITE INTACT AND PATENT. IV ACCESS INTACT AND PATENT, CURRENTLY INFUSING IV FLUIDS. MET ALL OF PATIENT'S NEEDS. SACRAL WOUND DRESSING CHANGE AND INTACT. SANDOVAL CATHETER INTACT AND FLOWING URINE BY GRAVITY. SAFETY PRECAUTIONS IMPLEMENTED WITH BED LOCKED, BILATERAL SIDE RAILS UP, BED LOCKED, BED IN THE LOWEST POSITION, BED ALARM ON, AND CALL LIGHT WITHIN EASY REACH. WILL ENDORSE PLAN OF CARE TO UPCOMING RN.
[2020-03-31] MEDS: CEFEPIME 2 GM in IV D5W 100 ML IV SCH (22:09)
[2020-03-31] MEDS: DONEPEZIL 5 MG TABLET GT SCH (22:24)
[2020-03-31] MEDS: ATORVASTATIN 40 MG TABLET GT SCH (22:24)
[2020-04-01] VITALS (9 sets, daily range): BP systolic 101–114; BP diastolic 51–69
[2020-04-01] MEDS: CLINDAMYCIN 600 MG in IV D5W 50 ML IV SCH ×3 (03:45→20:54)
[2020-04-01] MEDS: CEFEPIME 2 GM in IV D5W 100 ML IV SCH ×3 (04:45→21:44)
--- NOTE | 2020-04-01 06:45 | NUR ---
MACHINE CASTINGS PLASTERER CLOSING NOTES PATIENT IN BED AWAKE ALERT AND ORIENTED X 1, ON COOL AEROSOL WITH TRACH IN PLACE, TRACH COLLAR CHANGED AND TRACH CARE PROVIDED, TOLERATING WELL, GTUBE IN PLACE, INTACT AND PATENT, NO RESIDUALS, PATIENT IS NPO EXCEPT MEDS, COLOSTOMY INTACT AND CLEAN NOTED SMALL AMOUNT OF BM IN BAG. SANDOVAL CATHETER INTACT AND DRAINING,URINE YELLOW. ON DECAL DECORATOR SR 67, RIGHT UPPER ARM MIDLINE INTACT AND PATENT, IVF RUNNING ORDERED,ORIENTED TO STAFF AND CALL LIGHT AND KEPT WITHIN REACH, ALL NEEDS ATTENDED.WILL CONTINUE TO MONITOR AND ENDORSE TO NEXT. ABDOMINAL BINDER IN PLACE. REMAINED COMFORTABLE THROUGHOUT THE SHIFT.
--- NOTE | 2020-04-01 08:05 | NUR ---
RN OPENING NOTE Patient is resting in bed, A/O x1, opens eyes, mumbles, showing no signs of acute distress or SOB, trach collar portex #8 cool aerosol 5.0L saturating 95%. G-tube feeding in place, flushed with water, patent and intact, no signs of leaking. IV lines are clean and intact flushing well. Colostomy noted. Bed is in lowest position, side rails x2, in upright position, fall safety and aspiration precautions enforced. Will continue with plan of care. Addendum: 04/01/20 at 1122 by HIRAM HUNG RN TELE MONITOR SB WITH PACs
[2020-04-01] MEDS: FUROSEMIDE 20 MG TABLET PO SCH (08:26)
[2020-04-01] MEDS: MEMANTINE HCL 5 MG TABLET GT SCH ×2 (08:26→16:21)
[2020-04-01] MEDS: MULTIVITAMINS,THERAGRAN 1 UDTAB TABLET GT SCH (08:26)
[2020-04-01] MEDS: ASCORBIC ACID 500 MG TABLET GT SCH (08:26)
[2020-04-01] MEDS: PANTOPRAZOLE 40 MG/PACK PACK GT SCH (08:26)
[2020-04-01] MEDS: APIXABAN 5 MG TABLET GT SCH ×2 (08:27→21:11)
[2020-04-01] MEDS: DAKINS QUARTER STRENGTH (0.125%) 480 ML BOTTLE TOP SCH (09:05)
[2020-04-01] MEDS: PROSOURCE / PROSTAT (PYXIS) 30 ML UDC GT SCH (09:05)
--- NOTE | 2020-04-01 09:54 | NUR ---
BATTALION FIRE CHIEF NOTE SPOKE WITH NURSING STAFF AT [facility]. CONFIRMED PATIENTS PRIOR FEED WAS GLUCERNA 1.2 AT 55ML/HR. PATIENT TO START AT LOW RATE AND INCREASE TOLERATED.
[2020-04-01] MEDS: DIGOXIN 0.125 MG TABLET GT SCH (12:00)
[2020-04-01] MEDS: IV D5/0.45 NACL 1,000 ML IV PRN (14:00)
[2020-04-01] MEDS: GLUCERNA 1.2 1,000 ML BOTTLE NG PRN (14:35)
[2020-04-01 17:16] LABS: CALCIUM, SERUM 8.3 mg/dL (8.5-10.1); CREATININE 0.6 mg/dL (0.6-1.3); MAGNESIUM 1.7 mg/dL (1.8-2.4); PHOSPHORUS 2.8 mg/dL (2.5-4.9); POTASSIUM 3.8 mmol/L (3.5-5.1)
--- NOTE | 2020-04-01 18:04 | NUR ---
RN CLOSING NOTE Patient is resting in bed, A/O x2, able to respond, state needs, showing no signs of acute distress or SOB, trach collar portex #8 cool aerosol 5.0L saturating 95%. G-tube feeding in place, flushed with water, patent and intact, no signs of leaking, running Glucerna 1.2 at 55mls/hr. IV lines are clean and intact flushing well. Colostomy noted with small amount of BM, soft and brown. Bed is in lowest position, side rails x2, in upright position, fall safety and aspiration precautions enforced. Will endorse to bridge attacher for ERIC.
--- NOTE | 2020-04-01 19:15 | NUR ---
TELE ENVIRONMENTAL HEALTH AND SAFETY LEADER INITIAL NOTES RECEIVED REPORT FROM AM NURSE WHILE DOING OUR ROUNDS AND SEEN PT IN BED AWAKE WITH TRACHE PORTEX# 8 ON COOL AEROSOL. NO SIGNS OF ANY ACUTE DISTRESS NOTED . HE ALSO ON G-TUBE FEEDING GLUCERNA AT 55 ML/HR .NO RESIDUAL NOTED AT THIS TIME. PT ON IVF D51/2 NS AT 75ML/HR INFUSING ON HIS MIDLINE. SKIN WARM AND DRY TO TOUCH. KEPT HIM ON SEMI FOWLERS POSITION WITH SIDE RAILS X2 UP AND BED IN LOW AND LOCK IN POSITION. KEPT HIM WARM AND COMFORTABLE AT ALL TIMES.TELE SINUS RHYTHM WITH PAC'S HEART RATE 78 PER MONITOR. WILL CONTINUE MONITORING.
[2020-04-01] MEDS: ATORVASTATIN 40 MG TABLET GT SCH (21:27)
[2020-04-01] MEDS: DONEPEZIL 5 MG TABLET GT SCH (21:28)
[2020-04-02] VITALS (9 sets, daily range): BP systolic 95–117; BP diastolic 51–79
[2020-04-02] MEDS: CLINDAMYCIN 600 MG in IV D5W 50 ML IV SCH ×3 (04:26→20:26)
[2020-04-02] MEDS: IV D5/0.45 NACL 1,000 ML IV PRN (04:47)
[2020-04-02] MEDS: CEFEPIME 2 GM in IV D5W 100 ML IV SCH ×3 (05:31→20:25)
--- NOTE | 2020-04-02 07:39 | NUR ---
CREDIT ASSISTANT OPENING NOTES RECEIVED PATIENT AWAKE IN BED IN NO ACUTE SIGNS OF DISTRESS. HOB ELEVATED. A/O X 1. VERBALLY RESPONSIVE, DENIES PAIN OR ANY DISCOMFORTS AT THIS TIME. PT WITH TRACH PORTEX # 8 CONNECTED TO COOL AEROSOL T-PIECE, TOLERATING WELL WITH NO SOB NOTED. 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 JORDON MIDLINE INTACT AND PATENT, IVF RUNNING ORDERED. G-TUBE IN PLACE WITH FEEDING OF GLUCERNA 1.2 @ 55ML/HR IN PROGRESS, TOLERATING WELL. ASPIRATION PRECAUTIONS MAINTAINED. COLOSTOMY INTACT WITH SMALL AMOUNT OF SOFT BROWNISH STOOL NOTED TO BAG. SANDOVAL CATHETER IN PLACE, DRAINING CLEAR YELLOW URINE OUTPUT. SAFETY MEASURES IN PLACE: BED IN LOWEST LOCKED POSITION W/ SR UP X2. BED ALARM ON AND CALL LIGHT W/I EASY REACH. WILL CONTINUE TO MONITOR PT.
--- NOTE | 2020-04-02 07:51 | NUR ---
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 ALL DUE MEDS GIVEN AND ALL NEEDS MET. SLEPT WELL AND STABLE SERGEI THE NIGHT. G-TUBE FEEDING TOLERATED WELL AND NO ASPIRATION NOTED .STILL ON IVF INFUSING WELL. TELE SR WITH PAC'S PER MONITOR. ENDORSE TO AM NURSE.
[2020-04-02] MEDS: MEMANTINE HCL 5 MG TABLET GT SCH ×2 (08:38→16:20)
[2020-04-02] MEDS: FUROSEMIDE 20 MG TABLET PO SCH (08:38)
[2020-04-02] MEDS: ASCORBIC ACID 500 MG TABLET GT SCH (08:38)
[2020-04-02] MEDS: PROSOURCE / PROSTAT (PYXIS) 30 ML UDC GT SCH (08:38)
[2020-04-02] MEDS: PANTOPRAZOLE 40 MG/PACK PACK GT SCH (08:38)
[2020-04-02] MEDS: MULTIVITAMINS,THERAGRAN 1 UDTAB TABLET GT SCH (08:38)
[2020-04-02] MEDS: APIXABAN 5 MG TABLET GT SCH ×2 (08:40→20:36)
[2020-04-02] MEDS: DAKINS QUARTER STRENGTH (0.125%) 480 ML BOTTLE TOP SCH (08:51)
[2020-04-02] MEDS: GLUCERNA 1.2 1,000 ML BOTTLE NG PRN (10:05)
[2020-04-02] MEDS: DIGOXIN 0.125 MG TABLET GT SCH (13:11)
--- NOTE | 2020-04-02 14:36 | NUR ---
RN NOTES WOOD HEEL BACK LINER CAME TO DRAW BLOOD X2 THIS SHIFT BUT PT REFUSED AND ANGRY STATED " I DON'T CARE" AND "I'LL PUNCH YOU IF YOU DO IT". REYNALDO BROWN MADE AWARE AND WILL INFORM MD. WILL CONTINUE TO MONITOR.
--- NOTE | 2020-04-02 15:18 | NUR ---
RN notes Reported to Dr Souza that pt refused blood draw x2 this shift and also from previous shift. Dr Barrera went to spoke to pt and pt still refused. Will continue to monitor.
--- NOTE | 2020-04-02 18:54 | NUR ---
TELE CLOSING NOTES PATIENT IN BED AWAKE AT THIS TIME. HOB ELEVATED A/O X 1-2. VERBALLY RESPONSIVE. PT WITH TRACH PORTEX # 8 CONNECTED TO COOL AEROSOL T-PIECE, TOLERATING WELL WITH NO SOB NOTED. EXTERNAL ORACLE SQL DEVELOPER SHOWS ST WITH PAC'S AND HR B/W 100-115 AT THIS TIME, NO C/O CARDIAC DISTRESS VOICED. JORDON MIDLINE INTACT AND PATENT, IVF RUNNING ORDERED. G-TUBE IN PLACE WITH FEEDING OF GLUCERNA 1.2 @ 55ML/HR IN PROGRESS, TOLERATING WELL. ASPIRATION PRECAUTIONS MAINTAINED. COLOSTOMY INTACT WITH SOFT BROWNISH STOOL NOTED TO BAG. SANDOVAL CATHETER IN PLACE, DRAINING CLEAR YELLOW URINE OUTPUT. PT TURNED AND REPOSITIONED Q 2HRS AND PRN. KEPT CLEAN, DRY AND COMFORTABLE. SAFETY MEASURES IN PLACE: BED IN LOWEST LOCKED POSITION W/ SR UP X2. BED ALARM ON AND CALL LIGHT W/I EASY REACH.WILL ENDORSE TO FISHERMAN HELPER NURSE FOR ERIC.
--- NOTE | 2020-04-02 19:58 | NUR ---
FOX FARMER OPENING NOTES PT RECEIVED. PT ALERT AND ORIENTED X2. PT ON 5L NASAL CANNULA. O2 SATURATION AT 96%. EVEN LABORED BREATHING, NO SOB NOTED. G TUBE INTACT. MINIMAL RESIDUAL VOLUME NOTED. RUNNING GLUCERNA 1.2 @ 55 ML/ HR. TOLERATING WELL. JORDON MIDLINE PATENT. FLUSHING WELL. RUNNING D5 1/2 NS @75 ML/ HR. NO OCCLUSION, NO INFILTRATION. WILL CONTINUE PLAN OF CARE.
[2020-04-02] MEDS: ATORVASTATIN 40 MG TABLET GT SCH (23:45)
[2020-04-02] MEDS: DONEPEZIL 5 MG TABLET GT SCH (23:45)
[2020-04-03] VITALS (12 sets, daily range): BP systolic 89–104; BP diastolic 51–61
[2020-04-03] MEDS: IV D5/0.45 NACL 1,000 ML IV PRN (01:25)
[2020-04-03] MEDS: CLINDAMYCIN 600 MG in IV D5W 50 ML IV SCH ×3 (04:27→19:57)
[2020-04-03] MEDS: CEFEPIME 2 GM in IV D5W 100 ML IV SCH ×3 (04:28→20:29)
--- NOTE | 2020-04-03 06:48 | NUR ---
SUMAC TANNER CLOSING NOTES PT LAYING COMFORTABLY. A/O X1-2. CHANGED COLOSTOMY BAG. WOUND CARE. WOUND DRESSING CHANGED. SITE IS CLEAN. NO SIGNS OF INFECTION. G TUBE RUNNING GLUCERNA 1.2 @55 ML/ HR. INTACT. ABDOMINAL BINDER IN PLACE. JORDON MIDLINE RUNNING D5 1/2 NS @75 ML/ HR. PATENT. NO OCCLUSIONS, NO INFILTRATION. SANDOVAL INTACT. YELLOW, CLEAR URINE. VENT: TRACH PORTEX 8, T PIECE, AEROSOL. WILL ENDORSE TO MORNING SHIFT. WILL CONTINUE PLAN OF CARE.
--- NOTE | 2020-04-03 07:20 | NUR ---
HEEL BURNISHER OPENING NOTES PATIENT RECEIVED AWAKE IN BED IN NO ACUTE SIGNS OF DISTRESS. HOB ELEVATED. A/O X 1-2. VERBALLY RESPONSIVE, DENIES PAIN OR ANY DISCOMFORTS AT THIS TIME. PT WITH TRACH PORTEX # 8 CONNECTED TO COOL AEROSOL T-PIECE, TOLERATING WELL WITH NO SOB NOTED. ON EXTERNAL MOTHER BABY RN SHOWS NSR WITH PAC'S AND HR ON THE 70'S, NO C/O CARDIAC DISTRESS VOICED. JORDON MIDLINE INTACT AND PATENT, IVF RUNNING ORDERED. G-TUBE IN PLACE WITH FEEDING OF GLUCERNA 1.2 @ 55ML/HR IN PROGRESS, TOLERATING WELL. ASPIRATION PRECAUTIONS MAINTAINED. COLOSTOMY IN PL;JACKY WITH SMALL AMOUNT OF SOFT BROWNISH STOOL NOTED TO BAG. SANDOVAL CATHETER IN PLACE, DRAINING PINKISH URINE OUTPUT. SAFETY MEASURES IN PLACE: BED IN LOWEST LOCKED POSITION W/ SR UP X2. BED ALARM ON AND CALL LIGHT W/I EASY REACH. WILL CONTINUE TO MONITOR PT ACCORDINGLY.
[2020-04-03 07:50] LABS: BASOPHILS # (AUTO) 0.1 /CMM (0.0-0.2); BASOPHILS % (AUTO) 0.6 % (0.0-2.0); EOSINOPHILS % (AUTO) 1.4 % (0.0-6.0); HEMATOCRIT 23 % (39-51); HEMOGLOBIN 7.4 g/dL (13.5-17.5); LYMPHOCYTES # (AUTO) 1.7 /CMM (0.8-4.8); LYMPHOCYTES % (AUTO) 10.7 % (20.0-44.0); MEAN CORPUSCULAR HGB CONC 32 g/dl (31.0-36.0); MEAN CORPUSCULAR VOLUME 87 fL (80-96); MONOCYTES # (AUTO) 1.2 /CMM (0.1-1.30); MONOCYTES % (AUTO) 7.5 % (2.0-12.0); NEUTROPHILS # (AUTO) 12.7 /CMM (1.8-8.9); NEUTROPHILS % (AUTO) 79.8 % (43.0-81.0); PLATELET COUNT (AUTO) 320 /CMM (150-450); RED BLOOD CELL COUNT(AUTO) 2.64 MIL/uL (4.5-6.0); WHITE BLOOD COUNT (AUTO) 15.9 K/uL (4.3-11.0)
[2020-04-03 08:11] LABS: CALCIUM, SERUM 7.6 mg/dL (8.5-10.1); CREATININE 0.8 mg/dL (0.6-1.3); MAGNESIUM 1.6 mg/dL (1.8-2.4); POTASSIUM 3.2 mmol/L (3.5-5.1)
[2020-04-03] MEDS: FUROSEMIDE 20 MG TABLET PO SCH (08:37)
[2020-04-03] MEDS: MEMANTINE HCL 5 MG TABLET GT SCH ×2 (08:37→16:35)
[2020-04-03] MEDS: PANTOPRAZOLE 40 MG/PACK PACK GT SCH (08:37)
[2020-04-03] MEDS: ASCORBIC ACID 500 MG TABLET GT SCH (08:37)
[2020-04-03] MEDS: MULTIVITAMINS,THERAGRAN 1 UDTAB TABLET GT SCH (08:37)
[2020-04-03] MEDS: DAKINS QUARTER STRENGTH (0.125%) 480 ML BOTTLE TOP SCH (08:37)
[2020-04-03] MEDS: PROSOURCE / PROSTAT (PYXIS) 30 ML UDC GT SCH (08:39)
[2020-04-03] MEDS: APIXABAN 5 MG TABLET GT SCH ×2 (08:39→20:37)
[2020-04-03] MEDS: POTASSIUM CHLORIDE 20 MEQ POWDER PACKET PO SCH ×2 (10:27→11:41)
[2020-04-03] MEDS: Magnesium 1GM/D5W 100ML PREMIX 100 ML IV SCH ×2 (10:27→11:41)
[2020-04-03] MEDS: DIGOXIN 0.125 MG TABLET GT SCH (13:05)
--- NOTE | 2020-04-03 19:07 | NUR ---
BRICK SETTER CLOSING NOTES PATIENT IN BED ASLEEP AT TGHIS TIME, EASILY AWAKENS. HOB ELEVATED A/O X 1-2. VERBALLY RESPONSIVE. PT WITH TRACH PORTEX # 8 CONNECTED TO COOL AEROSOL T-PIECE, TOLERATING WELL WITH NO SOB NOTED. EXTERNAL WASTE MACHINE OPERATOR SHOWS NSR WITH PAC'S AND HR ON THE 70'S, NO C/O CARDIAC DISTRESS VOICED. JORDON MIDLINE INTACT AND PATENT, IVF RUNNING ORDERED. G-TUBE IN PLACE WITH FEEDING OF GLUCERNA 1.2 @ 55ML/HR IN PROGRESS, TOLERATING WELL. ASPIRATION PRECAUTIONS MAINTAINED. COLOSTOMY INTACT WITH SMALL AMOUNT OF SOFT BROWNISH STOOL NOTED TO BAG. SANDOVAL CATHETER IN PLACE, DRAINING CLEAR YELLOW URINE OUTPUT AT THIS TIME. PT TURNED AND REPOSITIONED Q 2HRS AND PRN. KEPT CLEAN, DRY AND COMFORTABLE. SAFETY MEASURES IN PLACE: BED IN LOWEST LOCKED POSITION W/ SR UP X2. BED ALARM ON AND CALL LIGHT W/I EASY REACH.WILL ENDORSE TO ELEMENTARY TUTOR NURSE FOR ERIC.
[2020-04-03] MEDS ORDERED: GLUCERNA 1.2 1,000 ML BOTTLE NG PRN (19:30)
--- NOTE | 2020-04-03 19:35 | NUR ---
RN NOTES PATIENT IN BED ASLEEP, EASILY AWAKENS. HOB ELEVATED A/O X 1-2. VERBALLY RESPONSIVE. PT WITH TRACH PORTEX # 8 CONNECTED TO COOL AEROSOL T-PIECE, TOLERATING WELL WITH NO SOB NOTED. EXTERNAL FABRICATION SUPERVISOR IN PLACE. JORDON MIDLINE INTACT AND PATENT, IVF RUNNING ORDERED. G-TUBE IN PLACE WITH FEEDING OF GLUCERNA 1.2 @ 75ML/HR, TOLERATING WELL. ASPIRATION PRECAUTIONS MAINTAINED. COLOSTOMY INTACT. SANDOVAL CATHETER IN PLACE, DRAINING CLEAR YELLOW URINE OUTPUT AT THIS TIME. SAFETY MEASURES IN PLACE: BED IN LOWEST LOCKED POSITION W/ SR UP X2. BED ALARM ON AND CALL LIGHT W/I EASY REACH.WILL CONTINUE TO MONITOR.
--- NOTE | 2020-04-03 19:35 | NUR ---
RN NOTES SPOKE TO KRZYSZTOF PEGUERO NP PER KRZYSZTOF ITS OKAY TO GIVE 1900 ELIQUIS DOSE.WILL CONTINUE TO MONITOR.
[2020-04-03] MEDS: ATORVASTATIN 40 MG TABLET GT SCH (22:22)
[2020-04-03] MEDS: DONEPEZIL 5 MG TABLET GT SCH (22:22)
[2020-04-04] VITALS: BP 135/77
[2020-04-04 01:00] VITALS: BP 135/77
[2020-04-04] MEDS: CLINDAMYCIN 600 MG in IV D5W 50 ML IV SCH ×2 (03:04→12:11)
[2020-04-04 04:00] VITALS: BP 102/55
[2020-04-04] MEDS: CEFEPIME 2 GM in IV D5W 100 ML IV SCH ×2 (04:05→13:11)
[2020-04-04] MEDS: IV D5/0.45 NACL 1,000 ML IV PRN (04:05)
[2020-04-04 05:00] VITALS: BP 102/55
--- NOTE | 2020-04-04 05:31 | NUR ---
RN NOTES ATTEMPTTED TO CHANGE SACRAL WOUND DRESSING PATIENT REFUSEDX3 RISK AND BENEFITS EXPLAINED X3 PT STILL REFUSED. WILL CONTINUE TO MONITOR.
--- NOTE | 2020-04-04 06:34 | NUR ---
RN NOTES PATIENT IN BED ASLEEP, EASILY AWAKENS. HOB ELEVATED A/O X 1-2. VERBALLY RESPONSIVE. PT WITH TRACH PORTEX # 8 CONNECTED TO COOL AEROSOL T-PIECE, TOLERATING WELL WITH NO SOB NOTED. EXTERNAL TRAVEL ASSISTANT IN PLACE. JORDON MIDLINE INTACT AND PATENT, IVF RUNNING ORDERED. G-TUBE IN PLACE WITH FEEDING OF GLUCERNA 1.2 @ 75ML/HR, TOLERATING WELL. ASPIRATION PRECAUTIONS MAINTAINED. COLOSTOMY INTACT. SANDOVAL CATHETER IN PLACE, DRAINING CLEAR YELLOW URINE OUTPUT AT THIS TIME. SAFETY MEASURES IN PLACE: BED IN LOWEST LOCKED POSITION W/ SR UP PATIENT REFUSED MORNING LABSX3 RESP THER WILL ATTEMPT AGAIN LATER. WILL ENDORSE CARE TO DAY SHIFT.
--- NOTE | 2020-04-04 07:30 | NUR ---
RECEIVED PT. IN AM ALERT AND ORIENTED X1-2.HOB ELEVATED.T-FEEDING INFUSING.VS STABLE.SIDE RAILS UP.TRACH IN PLACE.COLOSTOMY INTACT.F/C TO GRAVITY DRAINAGE.IV INFUSING.
[2020-04-04 08:15] VITALS: BP 95/44
[2020-04-04] MEDS: FUROSEMIDE 20 MG TABLET PO SCH (09:00)
--- NOTE | 2020-04-04 10:00 | NUR ---
PT.REFUSED LAB DRAW X2.ALTHOUGH RN IN TO RM. TO EXPLAIN IMPORTANCE.
[2020-04-04] MEDS: MULTIVITAMINS,THERAGRAN 1 UDTAB TABLET GT SCH (11:15)
[2020-04-04] MEDS: ASCORBIC ACID 500 MG TABLET GT SCH (11:15)
[2020-04-04] MEDS: MEMANTINE HCL 5 MG TABLET GT SCH ×2 (11:15→17:09)
[2020-04-04] MEDS: PANTOPRAZOLE 40 MG/PACK PACK GT SCH (11:15)
[2020-04-04] MEDS: APIXABAN 5 MG TABLET GT SCH (11:16)
[2020-04-04] MEDS: PROSOURCE / PROSTAT (PYXIS) 30 ML UDC GT SCH ×2 (11:18→17:00)
[2020-04-04] MEDS ORDERED: FURO20TA4 PO (11:40)
[2020-04-04] MEDS ORDERED: CLIN600P10 IV (11:40)
[2020-04-04] MEDS ORDERED: Prosource GT (11:40)
[2020-04-04] MEDS: DAKINS QUARTER STRENGTH (0.125%) 480 ML BOTTLE TOP SCH (12:11)
[2020-04-04] MEDS ORDERED: SILVER NITRATE APPLICATOR 1 EA BOX TP PRN (12:30)
[2020-04-04] MEDS ORDERED: LIDOCAINE 1% INJ 50 ML MDV IJ ONE (12:30)
[2020-04-04] MEDS: DIGOXIN 0.125 MG TABLET GT SCH (14:29)
--- NOTE | 2020-04-04 14:30 | NUR ---
PT. REFUSED DC PHOTOS
[2020-04-04 16:00] VITALS: BP 105/56
--- NOTE | 2020-04-04 18:00 | NUR ---
AMBULANCE HERE.IV REMOVED,PT.CONFUSED AND DISCONNECTING TRACH TUBING.REPORT CALLED TO FACILITY.ALL PAPERS SIGNED.REPORT TO DRIVERS.TAKEN VIA AMB. BACK TO FACILITY.
== END 2020-04-04 18:12 | DRG 393 ==
LOC: ER 11:47 → TRANSITION 17:35 → TELE2 03-30 04:20 → TELE 03-31 13:43
PROVIDERS: ADMIT Student in an Organized Health Care Education/Training Program; ATTEND Nurse Practitioner Acute Care
PROC: 0DH63UZ Insertion of Feeding Device into Stomach, Percutaneous Approach (ICD-10-PCS; principal; 2020-03-31)
DX: K94.23 Gastrostomy malfunction (principal); L89.154 Pressure ulcer of sacral region, stage 4; L89.324 Pressure ulcer of left buttock, stage 4; L89.314 Pressure ulcer of right buttock, stage 4; L89.894 Pressure ulcer of other site, stage 4; J69.0 Pneumonitis due to inhalation of food and vomit; J96.90 Respiratory failure, unspecified, unspecified whether with hypoxia or hypercapnia; E43 Unspecified severe protein-calorie malnutrition; G93.40 Encephalopathy, unspecified; J44.0 Chronic obstructive pulmonary disease with (acute) lower respiratory infection; J95.03 Malfunction of tracheostomy stoma; J98.11 Atelectasis; E11.9 Type 2 diabetes mellitus without complications; I48.0 Paroxysmal atrial fibrillation; K29.70 Gastritis, unspecified, without bleeding; R13.10 Dysphagia, unspecified; E87.6 Hypokalemia; I35.0 Nonrheumatic aortic (valve) stenosis; I25.10 Atherosclerotic heart disease of native coronary artery without angina pectoris; K21.9 Gastro-esophageal reflux disease without esophagitis; M48.00 Spinal stenosis, site unspecified; Z88.6 Allergy status to analgesic agent; Z88.0 Allergy status to penicillin; Z79.4 Long term (current) use of insulin; Z79.01 Long term (current) use of anticoagulants; Z79.899 Other long term (current) drug therapy; Z79.51 Long term (current) use of inhaled steroids; Y83.3 Surgical operation with formation of external stoma as the cause of abnormal reaction of the patient, or of later complication, without mention of misadventure at the time of the procedure; Y92.129 Unspecified place in nursing home as the place of occurrence of the external cause; D72.829 Elevated white blood cell count, unspecified; D47.3 Essential (hemorrhagic) thrombocythemia; D64.9 Anemia, unspecified
CPT/HCPCS: 31720; 36415; 43246; 71045-TC; 80048-TC; 80053-TC; 80162-TC; 82550-TC; 82728-TC; 82962-TC; 83605-TC; 83735-TC; 83880; 84100-TC; 84484-TC; 85025-TC; 85378-TC; 85730-TC; 86140-TC; 86850-TC; 87040-TC; 93307-TC; 94640-TC; 94664-TC; 94799-TC; A6253; A6403; A7526; G0378; J0692; J3475; J3480; J3490; J7030; J7040; J7060; U0003

== ENCOUNTER 2020-06-04 08:26 | Inpatient (IN) | payer MEDICARE, OTHER ==
[2020-06-04] VITALS (46 sets, daily range): BP systolic 79–129; BP diastolic 48–79
[~2020-06-04] VITALS: Ht 167.6 cm; Wt 93.0 kg
[~2020-06-04 08:26] MED LIST changes: +CLIN600P10 IV; -FURO-145 PO; +FURO20TA4 PO; +Prosource GT
--- NOTE | 2020-06-04 08:30 | NUR ---
DANICA JULES From [facility] "Low O2 sats +trach O2 collar sats 84. Hypotensive SBP 87". connected to the monitor and pulse ox. kept comfortable, will continue to monitor accordingly.
--- NOTE | 2020-06-04 08:43 | NUR ---
MADDI, POA/PARTNER, WANTS TO BE UPDATED
[2020-06-04 08:56] LABS: BASOPHILS # (AUTO) 0.1 /CMM (0.0-0.2); BASOPHILS % (AUTO) 0.2 % (0.0-2.0); EOSINOPHILS % (AUTO) 0.4 % (0.0-6.0); HEMATOCRIT 24 % (39-51); HEMOGLOBIN 7.4 g/dL (13.5-17.5); LYMPHOCYTES # (AUTO) 0.3 /CMM (0.8-4.8); LYMPHOCYTES % (AUTO) 0.6 % (20.0-44.0); MEAN CORPUSCULAR HGB CONC 30 g/dl (31.0-36.0); MEAN CORPUSCULAR VOLUME 86 fL (80-96); MONOCYTES # (AUTO) 1.3 /CMM (0.1-1.30); MONOCYTES % (AUTO) 2.5 % (2.0-12.0); NEUTROPHILS # (AUTO) 49.5 /CMM (1.8-8.9); NEUTROPHILS % (AUTO) 96.3 % (43.0-81.0); PLATELET COUNT (AUTO) 545 /CMM (150-450); RED BLOOD CELL COUNT(AUTO) 2.82 MIL/uL (4.5-6.0)
--- NOTE | 2020-06-04 08:56 | NUR ---
RT PT CAME IN VIA EMS,TRACH PORTEX 7 UNCUFFED BEING BAGGED, PT IN RESP DISTRESS SWITCHED TRACH TO CUFFED PORTEX 7 TO BE PLACED ON MECH VENT NO BLEEDING, EQUAL BILATERAL CHEST RISE, PLACED ON AC/VC+ 24 500 +5 100% WILL CONT TO MONITOR, ABG TO FOLLOW
[2020-06-04 09:02] LABS: WHITE BLOOD COUNT (AUTO) 51.5 K/uL (4.3-11.0)
[2020-06-04] MEDS ORDERED: ACETAMINOPHEN 650 MG/20.3 ML UDC ONE (09:17)
[2020-06-04 09:29] LABS: ALANINE AMINOTRANSFERASE 13 U/L (12-78); ALBUMIN 1.5 g/dL (3.4-5.0); ALKALINE PHOSPHATASE 184 U/L (46-116); ASPARTATE AMINOTRANSFERASE 25 U/L (15-37); B-TYPE NATRIURETIC PEPTIDE 6800 PG/ML (0-125); BILIRUBIN,DIRECT 0.1 mg/dL (0.0-0.2); BILIRUBIN,TOTAL 0.3 mg/dL (0.2-1.0); CALCIUM, SERUM 9.4 mg/dL (8.5-10.1); CARBON DIOXIDE 24 mmol/L (21-32); CHLORIDE 89 mmol/L (98-107); CREATININE 3.9 mg/dL (0.6-1.3); GLUCOSE 119 mg/dL (74-106); SODIUM SERUM 126 mmol/L (136-145); TOTAL PROTEIN, SERUM 7.1 g/dL (6.4-8.2)
[2020-06-04 09:30] LABS: POTASSIUM 8.4 mmol/L (3.5-5.1)
[2020-06-04] MEDS ORDERED: MAGNESIUM HYDROXIDE 30 ML UDC GT PRN (09:30)
[2020-06-04] MEDS ORDERED: NA PHOS,M-B/NA PHOS,DI-BA 1 EA ENEMA RC PRN (09:30)
[2020-06-04] MEDS ORDERED: VANCOMYCIN 1 GM in IV D5W 250 ML IV ONE (09:30)
[2020-06-04] MEDS ORDERED: LEVOFLOXACIN 750 MG /D5W 150ML 150 ML IV ONE (09:30)
[2020-06-04] MEDS ORDERED: BISACODYL (5 MG) 5 MG TABLET.DR GT PRN (09:30)
[2020-06-04] MEDS ORDERED: DEXTROSE 50%-WATER 50 ML DISP.SYRIN IV PRN (09:30)
[2020-06-04] MEDS ORDERED: IV NS 0.9% 1,000 ML BAG IV ONE (09:30)
[2020-06-04] MEDS ORDERED: ACETAMINOPHEN 325 MG TABLET PO ONE (09:30)
[2020-06-04] MEDS ORDERED: ONDANSETRON 4 MG TAB.RAPDIS GT PRN (09:30)
[2020-06-04 09:31] LABS: UREA NITROGEN, BLOOD 145 mg/dL (7-18)
--- NOTE | 2020-06-04 10:00 | NUR ---
Dr. garrison at bedside for eval
[2020-06-04 10:09] LABS: BILIRUBIN,URINE Negative (NEGATIVE); COLOR,URINE YELLOW (YELLOW); LEUKOCYTE ESTERASE ,URINE Large (NEGATIVE); NITRITE, URINE Negative (NEGATIVE); PH,URINE 8.5 (5.0-8.0); PROTEIN,URINE >=300 mg/dl (NEGATIVE); UGLUCOSE Negative (NEGATIVE); UROBILINOGEN,URINE 0.2 EU/dL (0.2)
[2020-06-04 10:10] LABS: ABG BASE EXCESS -1.5 mmol/L; ABG OXYGEN SATURATION 98.7 % (92.0-98.5); ABG PCO2 32.2 mmHg (35.0-45.0); ABG PH 7.458 (7.350-7.450); ABG PO2 255.4 mmHg (75.0-100.0); AaDO2 425.4 mmHg; COHb 0.3 % (0.5-1.5); O2Hb 97.4 % (94.0-97.0); SITE, ABG Right Radial
[2020-06-04 10:15] LABS: BACTERIA,URINE 3+ /HPF (None Seen); SQUAMOUS EPITHELIAL CELL,UR Few /HPF (None Seen); WBC,URINE TOO NUMEROUS TO COUN /HPF (0-3)
--- NOTE | 2020-06-04 10:30 | NUR ---
Dr. Silva at bedside for eval
[2020-06-04] MEDS ORDERED: EPOE40007 SQ (10:34)
[2020-06-04] MEDS ORDERED: ZINC1CAP2 GT (10:34)
[2020-06-04] MEDS ORDERED: FURO-145 GT (10:34)
[2020-06-04] MEDS ORDERED: FERR325T23 GT (10:34)
[2020-06-04] MEDS ORDERED: IPRA4AER IH (10:34)
[2020-06-04] MEDS ORDERED: ACET-2605 GT (10:34)
[2020-06-04] MEDS ORDERED: HYDR-3972 GT (10:34)
[2020-06-04] MEDS ORDERED: NUTR1PAC14 GT (10:34)
[2020-06-04] MEDS ORDERED: CHLO118L6 TP (10:34)
[2020-06-04] MEDS ORDERED: LEVOFLOXACIN 250 MG /D5W 50 ML 250 MG/50 ML PIGGYBACK IV ONE (11:00)
--- NOTE | 2020-06-04 11:13 | NUR ---
spoke to jim SCHWAB and gave us consent for picc line insertion.
[2020-06-04 11:17] LABS: BAND % (MANUAL) 12 % (0.0-5.0); EOSINOPHILS % (MANUAL) 2 % (0-4); LYMPHOCYTES % (MANUAL) 1 % (16-48); MONOCYTES % (MANUAL) 2 % (0-11.0); NEUTROPHILS % (MANUAL) 83 (42-76)
[2020-06-04] MEDS: BLOOD SUGAR DIAGNOSTIC 1 EACH STRIP VI SCH ×3 (12:00→21:50)
[2020-06-04] MEDS ORDERED: NOREPINEPHRINE 8 MG in IV NS 0.9% 242 ML IV PRN ×2 (12:00→15:30)
[2020-06-04] MEDS ORDERED: CLINDAMYCIN IV RTU IN D5W 600 MG/50 ML PIGGYBACK IV SCH (13:00)
[2020-06-04] MEDS ORDERED: CLINDAMYCIN 600 MG in IV D5W 50 ML IV ONE (13:00)
[2020-06-04] MEDS: FLUDROCORTISONE 0.1 MG TABLET GT SCH ×3 (13:00→23:18)
[2020-06-04 13:08] LABS: CALCIUM, SERUM 8.4 mg/dL (8.5-10.1); CREATININE 3.5 mg/dL (0.6-1.3)
[2020-06-04 13:10] LABS: POTASSIUM 7.3 mmol/L (3.5-5.1)
--- NOTE | 2020-06-04 13:10 | NUR ---
CRITICAL LABS K 7.3 BUN 128
--- NOTE | 2020-06-04 13:11 | NUR ---
Report given to Radha ROBINS for tatiana
--- NOTE | 2020-06-04 13:13 | NUR ---
machines technician at bedside for exam
[2020-06-04] MEDS: IPRATROPIUM NEB FS 0.5 MG/2.5 ML AMPUL.NEB NEB SCH ×2 (13:30→19:30)
[2020-06-04] MEDS: ALBUTEROL FS 2.5 MG/0.5 ML VIAL.NEB NEB SCH ×2 (13:30→19:30)
[2020-06-04] MEDS ORDERED: Medication Not On Formulary EA (Ipratropium/Albuterol Sulfate (Combivent Respimat 20-100 IH SCH (13:30)
[2020-06-04] MEDS ORDERED: NOREPINEPHRINE 8 MG in IV NS 0.9% 250ML IV PRN (16:00)
[2020-06-04] MEDS: NOREPINEPHRINE 32 MG in IV NS 0.9% 250 ML IV PRN (16:35)
[2020-06-04] MEDS ORDERED: APIXABAN 5 MG TABLET GT SCH (17:00)
[2020-06-04] MEDS: IV NS 0.9% 1,000 ML IV PRN (17:00)
[2020-06-04] MEDS: MEMANTINE HCL 5 MG TABLET GT SCH (17:00)
[2020-06-04] MEDS ORDERED: DOCUSATE SODIUM 100 MG CAPSULE PO SCH (17:00)
[2020-06-04] MEDS: DOCUSATE SODIUM LIQ 100 MG/10 ML UDC GT SCH (17:01)
[2020-06-04] MEDS: HYDROCORTISONE SOD SUCCINATE 100 MG/2 ML VIAL IV SCH ×2 (17:19→20:54)
[2020-06-04] MEDS: GLUCERNA 1.5 1,000 ML BOTTLE GT PRN (18:10)
[2020-06-04] MEDS: INSULIN REGULAR, HUMAN 100 UNIT/ML 3 ML VIAL SQ PRN (18:31)
--- NOTE | 2020-06-04 20:10 | NUR ---
RN NOTE PATIENT OBTUNDED, HEAD OF BED ELEVATED. ON MECHANICAL VENT, TOLERATING SETTINGS WELL. O2 SAT 99%. NO SOB OR ANY RESPIRATORY DISTRESS. NO S/S OF ANY DISCOMFORT. WITH SANDOVAL CATH, PATENT AND DRAINING YELLOW CLOUDY URINE. WITH G-TUBE RUNNING GLUCERNA @65 ML/HR, NO RESIDUAL NOTED. IV ACCES LEFT FA #20, JORDON PICC LINE AND IO LEFT LEG. NO S/S OF ANY INFILTRATION. BED LOCKED AND IN LOWEST POSITION. CALL LIGHT WITHIN REACH. WILL CONTINUE TO MONITOR.
[2020-06-04] MEDS: CLINDAMYCIN 600 MG in IV D5W 50 ML IV SCH (20:54)
[2020-06-04] MEDS: *INSULIN REGULAR(HUMULIN R)HUM 100 UNIT/ML VIAL SQ PRN (21:57)
[2020-06-04] MEDS ORDERED: ATORVASTATIN 40 MG TABLET GT SCH (22:00)
[2020-06-04] MEDS ORDERED: DONEPEZIL 5 MG TABLET GT SCH (22:00)
--- NOTE | 2020-06-04 22:13 | NUR ---
Patient is trach/vent dependent,resides at [facility] [phone]. He is bedfast and totally dependent with adl's.Current dc plan is to return to [facility] with 7days bedhold. Addendum: 06/04/20 at 2213 by MICKY PARADA RN Amended: Links added.
[2020-06-05] VITALS (83 sets, daily range): BP systolic 87–150; BP diastolic 53–96
[2020-06-05] MEDS: ALBUTEROL FS 2.5 MG/0.5 ML VIAL.NEB NEB SCH ×4 (01:42→19:34)
[2020-06-05] MEDS: IPRATROPIUM NEB FS 0.5 MG/2.5 ML AMPUL.NEB NEB SCH ×4 (01:42→19:34)
[2020-06-05 04:45] LABS: BASOPHILS # (AUTO) 0.1 /CMM (0.0-0.2); BASOPHILS % (AUTO) 0.1 % (0.0-2.0); EOSINOPHILS % (AUTO) 0.1 % (0.0-6.0); LYMPHOCYTES # (AUTO) 0.3 /CMM (0.8-4.8); LYMPHOCYTES % (AUTO) 0.5 % (20.0-44.0); MEAN CORPUSCULAR HGB CONC 30 g/dl (31.0-36.0); MEAN CORPUSCULAR VOLUME 86 fL (80-96); MONOCYTES # (AUTO) 1.3 /CMM (0.1-1.30); MONOCYTES % (AUTO) 2.1 % (2.0-12.0); NEUTROPHILS # (AUTO) 59.6 /CMM (1.8-8.9); NEUTROPHILS % (AUTO) 97.2 % (43.0-81.0); PLATELET COUNT (AUTO) 457 /CMM (150-450); RED BLOOD CELL COUNT(AUTO) 2.21 MIL/uL (4.5-6.0)
[2020-06-05 05:00] LABS: HEMOGLOBIN 5.7 g/dL (13.5-17.5); WHITE BLOOD COUNT (AUTO) 61.3 K/uL (4.3-11.0)
[2020-06-05 05:01] LABS: HEMATOCRIT 19 % (39-51)
[2020-06-05 05:10] LABS: BILIRUBIN,TOTAL 0.3 mg/dL (0.2-1.0); CALCIUM, SERUM 8.6 mg/dL (8.5-10.1); CREATININE 3.2 mg/dL (0.6-1.3); MAGNESIUM 2.5 mg/dL (1.8-2.4); PHOSPHORUS 3.9 mg/dL (2.5-4.9); TOTAL PROTEIN, SERUM 6.2 g/dL (6.4-8.2)
[2020-06-05 05:15] LABS: POTASSIUM 6.3 mmol/L (3.5-5.1)
[2020-06-05 05:16] LABS: ALBUMIN 1.3 g/dL (3.4-5.0)
[2020-06-05] MEDS: HYDROCORTISONE SOD SUCCINATE 100 MG/2 ML VIAL IV SCH ×3 (05:37→21:23)
[2020-06-05] MEDS: CLINDAMYCIN 600 MG in IV D5W 50 ML IV SCH (05:37)
[2020-06-05 05:38] LABS: EOSINOPHILS % (MANUAL) 1 % (0-4); LYMPHOCYTES % (MANUAL) 2 % (16-48); MONOCYTES % (MANUAL) 7 % (0-11.0); NEUTROPHILS % (MANUAL) 90 (42-76)
[2020-06-05] MEDS: FLUDROCORTISONE 0.1 MG TABLET GT SCH ×4 (05:39→23:34)
--- NOTE | 2020-06-05 07:15 | NUR ---
RN NOTES RECEIVED PATIENT IN BED, TRACH ON VENT, AC 20, TV 500, FIO2 45%, PEEP OF 0, SATING @100%, NO SIGNS OF DISTRESS NOTED AT THIS TIME, GTUBE WITH GLUCERNA RUNNING @65ML/HR, RSV OF 10, FC INTACT AND PATENT DRAINING TO GRAVITY WITH CLEAR YELLOW URINE, IV ACCESS ON LFA #20, IO ON LEFT LEG, AND JORDON PICC LINE WITH LEV RUNNING @ 0.2 MCG/KG/MIN, AND NS @75ML/HR. SAFETY MEASURES IN PLACE, BED IN LOWEST LOCKED POSITION WITH SIDE RAILS UP X2, CALL LIGHT WITHIN REACH, FULLING MILL OPERATOR AT BEDSIDE DRAWING BLOOD FOR TYPE AND SCREEN WITH ORDERS OF 2 UNIT OF PRBC DUE TO HGB OF 5.7, WILL CONTINUE TO MONITOR.
[2020-06-05] MEDS: IV NS 0.9% 1,000 ML IV PRN (07:27)
--- NOTE | 2020-06-05 07:46 | NUR ---
RN NOTE PATIENT ALERT HEAD OF BED ELEVATED. ON MECHANICAL VENT, TOLERATING SETTINGS WELL. O2 SAT 99%. NO SOB OR ANY RESPIRATORY DISTRESS. NO S/S OF ANY DISCOMFORT. WITH SANDOVAL CATH, PATENT AND DRAINING YELLOW CLOUDY URINE OUTPUT 1600. WITH G-TUBE RUNNING GLUCERNA @65 ML/HR, NO RESIDUAL NOTED. IV ACCES LEFT FA #20, JORDON PICC LINE AND IO LEFT LEG. PAGED PAULINE X3 REGARDING CRITICAL LAB WITH ORDERS TO FOLLOW UP WITH DAY SHIFT NURSE. WILL ENDORSE TO ONCOMING SHIFT. NO S/S OF ANY INFILTRATION. BED LOCKED AND IN LOWEST POSITION. CALL LIGHT WITHIN REACH. ENDORSED TO ONCOMING SHIFT.
--- NOTE | 2020-06-05 07:50 | NUR ---
PT RECEIVED ON VENT, SETTINGS AC 20, 500, 40%. PT SPO2 100%. ET TUBE IN PLACE AND SECURED. AMBU-BAG AT BEDSIDE AND VENT PLUGGED INTO RED OUTLET. PT IS RESPONSIVE TO COMMANDS. RT WILL CONTINUE TO MONITOR PT. Addendum: 06/05/20 at 1152 by LOREE GARCIA RT Amended: Links added. Addendum: 06/05/20 at 1215 by LOREE GARCIA RT CORRECTION PT HAS A TRACH , TRACH IS IN PLACE AND SECURED.
[2020-06-05] MEDS: BLOOD SUGAR DIAGNOSTIC 1 EACH STRIP VI SCH ×4 (08:02→21:35)
[2020-06-05] MEDS: INSULIN REGULAR, HUMAN 100 UNIT/ML 3 ML VIAL SQ PRN ×3 (08:04→17:48)
[2020-06-05 08:11] LABS: ABG BASE EXCESS 1.2 mmol/L; ABG PCO2 35.7 mmHg (35.0-45.0); ABG PH 7.464 (7.350-7.450); AaDO2 139.1 mmHg; COHb 0.6 % (0.5-1.5); MetHb 0.3 % (0.0-1.5); O2Hb 97.1 % (94.0-97.0); SITE, ABG Right Radial; VENT MODE, BG AC 20 500 40% +0
[2020-06-05] MEDS: PANTOPRAZOLE 40 MG/PACK PACK PO SCH (08:40)
[2020-06-05] MEDS: DOCUSATE SODIUM LIQ 100 MG/10 ML UDC GT SCH ×2 (08:40→16:13)
[2020-06-05] MEDS: MEMANTINE HCL 5 MG TABLET GT SCH ×2 (08:41→16:13)
[2020-06-05] MEDS: DIGOXIN 0.125 MG TABLET GT SCH (08:41)
--- NOTE | 2020-06-05 08:49 | NUR ---
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 RECOMMEND SURGICAL/DPM CONSULTS. DR CAMPBELL AND DR HAJI NOTIFIED OF CONSULT REQUESTS. RECOMMENDATIONS MADE FOR SKIN PROTECTION,. DISCUSSED WITH NURSING STAFF. PT TO BE PLACED ON AMIRAH ISOFLEX LOW AIRLOSS BED. IN AGREEMENT WITH PLAN OF CARE. Addendum: 06/05/20 at 0851 by ALICIA PARKER WNDNU Amended: Links added.
[2020-06-05] MEDS ORDERED: Z GUARD REMEDY 2 OZ OINT TP PRN (09:00)
[2020-06-05] MEDS ORDERED: MEROPENEM 500 MG in IV NS 0.9% 50 ML IV SCH (09:00)
[2020-06-05] MEDS: Z GUARD REMEDY 2 OZ OINT TP SCH (09:23)
[2020-06-05] MEDS: MEROPENEM 500 MG in IV NS 0.9% 100 ML IV SCH ×2 (10:22→21:24)
[2020-06-05] MEDS: NOREPINEPHRINE 32 MG in IV NS 0.9% 250 ML IV PRN (10:30)
[2020-06-05] MEDS ORDERED: THERAHONEY GEL 1.5 OZ TUBE TP PRN (11:30)
[2020-06-05] MEDS ORDERED: SODIUM POLYSTYRENE SULFONATE 15 G/60 ML BOTTLE PO ONE (12:30)
[2020-06-05] MEDS: GLUCERNA 1.5 1,000 ML BOTTLE GT PRN (13:57)
--- NOTE | 2020-06-05 15:30 | NUR ---
RN NOTES NOTED WITH HEMATURIA, MD MADE AWARE WITH NNO AT THIS TIME.
[2020-06-05] MEDS ORDERED: NOREPINEPHRINE 8 MG in IV NS 0.9% 242 ML IV PRN (17:30)
[2020-06-05 18:13] LABS: CALCIUM, SERUM 7.9 mg/dL (8.5-10.1); CREATININE 2.7 mg/dL (0.6-1.3); POTASSIUM 4.8 mmol/L (3.5-5.1)
--- NOTE | 2020-06-05 18:46 | NUR ---
RN NOTES PATIENT IN BED, TRACH ON VENT, AC 20, TV 500, FIO2 40%, PEEP OF 0, SATING @100%, NO SIGNS OF DISTRESS NOTED THROUGHOUT THE SHIFT, S/P BLOOD TRANSFUSION WITH NO ADVERSE REACTION NOTED, GT TUBE WITH GLUCERNA RUNNING @65ML/HR, NO RSV, FC INTACT AND PATENT DRAINING TO GRAVITY WITH BRIGHT RED URINE, MD AWARE WITH NNO, IV ACCESS ON LFA #20, IO ON LEFT LEG, AND JORDON PICC LINE WITH NS @75ML/HR. SAFETY MEASURES IN PLACE, BED IN LOWEST LOCKED POSITION WITH SIDE RAILS UP X2, CALL LIGHT WITHIN REACH, WILL ENDORSE TO CST NURSE FOR ERIC.
--- NOTE | 2020-06-05 19:52 | NUR ---
RN NOTE PATIENT IN BED, OPENS EYES. TRACH ON VENT, AC 20, TV 500, FIO2 40%, PEEP OF 0, SATING @100% NO SOB OR ANY S/S OF DISTRESS. HEAD OF BED ELEVATED. GT TUBE WITH GLUCERNA RUNNING @65ML/HR. NO RESIDUAL NOTED. SANDOVAL CATH INTACT AND PATENT DRAINING BRIGHT RED URINE. IV ACCESS ON LFA #20, IO ON LEFT LEG, AND JORDON PICC LINE WITH NS @75ML/HR. SAFETY MEASURES IN PLACE. BED IN LOWEST LOCKED POSITION WITH SIDE RAILS UP X2. CALL LIGHT WITHIN REACH. WILL CONTINUE TO MONITOR.
[2020-06-05] MEDS: *INSULIN REGULAR(HUMULIN R)HUM 100 UNIT/ML VIAL SQ PRN (21:39)
[2020-06-06] VITALS (22 sets, daily range): BP systolic 89–110; BP diastolic 52–73
[2020-06-06 00:13] LABS: OCCULT BLOOD STOOL NEGATIVE (NEGATIVE)
[2020-06-06] MEDS: ALBUTEROL FS 2.5 MG/0.5 ML VIAL.NEB NEB SCH ×4 (01:07→20:30)
[2020-06-06] MEDS: IPRATROPIUM NEB FS 0.5 MG/2.5 ML AMPUL.NEB NEB SCH ×4 (01:07→20:30)
[2020-06-06] MEDS: IV NS 0.9% 1,000 ML IV PRN ×2 (02:45→22:33)
[2020-06-06 04:24] LABS: HEMATOCRIT 23 % (39-51); HEMOGLOBIN 7.1 g/dL (13.5-17.5); LYMPHOCYTES # (AUTO) 0.4 /CMM (0.8-4.8); MEAN CORPUSCULAR HGB CONC 32 g/dl (31.0-36.0); MEAN CORPUSCULAR VOLUME 86 fL (80-96); MONOCYTES # (AUTO) 1.2 /CMM (0.1-1.30); MONOCYTES % (AUTO) 3.2 % (2.0-12.0); NEUTROPHILS # (AUTO) 37.1 /CMM (1.8-8.9); NEUTROPHILS % (AUTO) 95.8 % (43.0-81.0); PLATELET COUNT (AUTO) 287 /CMM (150-450); RED BLOOD CELL COUNT(AUTO) 2.61 MIL/uL (4.5-6.0)
[2020-06-06 04:33] LABS: WHITE BLOOD COUNT (AUTO) 38.7 K/uL (4.3-11.0)
[2020-06-06 04:39] LABS: CALCIUM, SERUM 7.9 mg/dL (8.5-10.1); CREATININE 2.7 mg/dL (0.6-1.3); MAGNESIUM 2.4 mg/dL (1.8-2.4); PHOSPHORUS 3.7 mg/dL (2.5-4.9); POTASSIUM 5.1 mmol/L (3.5-5.1)
--- NOTE | 2020-06-06 05:00 | NUR ---
RECEIVED CRITICAL LAB FROM BEATRIZ WBC 38.7 AND HG 7.1. TRENDING IN EXPECTED DIRECTION. WILL ENDORSE TO AM SHIFT.
[2020-06-06] MEDS: HYDROCORTISONE SOD SUCCINATE 100 MG/2 ML VIAL IV SCH ×3 (05:31→20:36)
[2020-06-06] MEDS: FLUDROCORTISONE 0.1 MG TABLET GT SCH ×3 (05:31→17:47)
--- NOTE | 2020-06-06 06:56 | NUR ---
RN NOTE PATIENT IN BED, OPENS EYES. TRACH ON VENT, AC 20, TV 500, FIO2 40%, PEEP OF 0, SATING @100% NO SOB OR ANY S/S OF DISTRESS. HEAD OF BED ELEVATED. GT TUBE WITH GLUCERNA RUNNING @65ML/HR. NO RESIDUAL NOTED. SANDOVAL CATH INTACT AND PATENT DRAINING BRIGHT RED URINE OUTPUT 700CC. IV ACCESS ON LFA #20, JORDON PICC LINE WITH NS @75ML/HR. TURNED AND REPOSITIONED Q2HR. ALL DUE MEDS GIVEN ORDERED. SAFETY MEASURES IN PLACE. BED IN LOWEST LOCKED POSITION WITH SIDE RAILS UP X2. CALL LIGHT WITHIN REACH. WILL ENDORSE TO ONCOMING SHIFT.
--- NOTE | 2020-06-06 07:15 | NUR ---
RN NOTES RECEIVED PATIENT IN BED RESTING COMFORTABLY IN MODERATE HIGH BACK REST, TRACH ON VENT, AC 20, TV 500, FIO2 40%, PEEP OF 0, SATING @100%, NO SIGNS OF DISTRESS NOTED GT TUBE WITH GLUCERNA RUNNING @65ML/HR, NO RSV, FC INTACT AND PATENT DRAINING TO GRAVITY WITH BRIGHT RED URINE, IV ACCESS ON LFA #20, AND JORDON PICC LINE WITH NS @75ML/HR. SAFETY MEASURES IN PLACE, BED IN LOWEST LOCKED POSITION WITH SIDE RAILS UP X2, CALL LIGHT WITHIN REACH, WILL CONTINUE TO MONITOR.
[2020-06-06] MEDS: BLOOD SUGAR DIAGNOSTIC 1 EACH STRIP VI SCH ×4 (07:56→22:09)
[2020-06-06] MEDS: INSULIN REGULAR, HUMAN 100 UNIT/ML 3 ML VIAL SQ PRN ×4 (07:59→22:12)
[2020-06-06] MEDS: DIGOXIN 0.125 MG TABLET GT SCH (08:13)
[2020-06-06] MEDS: DOCUSATE SODIUM LIQ 100 MG/10 ML UDC GT SCH ×2 (08:13→16:36)
[2020-06-06] MEDS: PANTOPRAZOLE 40 MG/PACK PACK PO SCH (08:13)
[2020-06-06] MEDS: MEMANTINE HCL 5 MG TABLET GT SCH ×2 (08:14→16:36)
[2020-06-06] MEDS: MEROPENEM 500 MG in IV NS 0.9% 100 ML IV SCH ×2 (08:15→20:36)
[2020-06-06] MEDS: Z GUARD REMEDY 2 OZ OINT TP SCH (08:15)
[2020-06-06] MEDS: GLUCERNA 1.5 1,000 ML BOTTLE GT PRN (08:38)
[2020-06-06] MEDS ORDERED: LEVOFLOXACIN 500 MG /D5W 100ML 500 MG/100 ML PIGGYBACK IV SCH (11:00)
--- NOTE | 2020-06-06 11:00 | NUR ---
RN NOTES STARTED BLOOD TRANSFUSION VERIFIED WITH SHIMON GREGORIO, VSS, WILL CONTINUE TO MONITOR.
--- NOTE | 2020-06-06 13:45 | NUR ---
RN NOTES S/P BLOOD TRANSFUSION, VSS, NO SIGNS OF ADVERSE REACTION NOTED, WILL CONTINUE TO MONITOR.
[2020-06-06] MEDS: SOD FERRIC GLUC 125 MG in IV NS 0.9% 100 ML IV SCH (14:03)
--- NOTE | 2020-06-06 15:50 | NUR ---
RN NOTES TRANSFERRED PATIENT WITH RT, REPORT GIVEN TO SHIMON CAIN, ALL BELONGINGS AND MEDICATION TRANSFERRED WITH PATIENT, NO SIGNS OF DISTRESS NOTED.
--- NOTE | 2020-06-06 16:00 | NUR ---
BUCKY RN NOTE RECEIVED PATINT FROM ICU ,NONVERBAL OBTUNDED WITH BOTH EYES OPEN , WITH TRACH TO VENT SETTING ORDERED WITH G TUBE FEEDING ORDERED KEEP HOB ELEVATED AT ALL TIME , , ON TELEMONITOR SR HR 71, WITH SANDOVAL CATH TO GRAVITY RT UPPER ARM PICC LINE IN PLACE,ON IVF ON BED IN LOWEST AND LOCKED POSITION , WILL CONT TO MONITOR
--- NOTE | 2020-06-06 19:30 | NUR ---
RN OPENING NOTE RECEIVED PATIENT LAYING IN BED ON TRACH/VENT OBTUNDED,OPEN EYES,IV SITE IS ON RIGHT UPPER ARM PICC LINE INTACT PATENT NORMAL SALINE 0.9% 75CC/HR RUNNING,ON G-TUBE FEEDING GLUCERNA 1.2 65CC/HR CHECKED PLACEMENT IN PLACE NO RESIDUAL NOTED,SANDOVAL CATHETER IN PLACE,URINE RUNNING YELLOW/CLEAR,HEAD OF BED ELEVATED,SAFETY PLACE IMPLEMENT,BED IN LOW POSITON AND LOCKED CONTINUE TO MONITOR.
[2020-06-07] VITALS: BP 125/67
--- NOTE | 2020-06-07 | NUR ---
RN NOTE FLORINEF IS NOT AVAILABLE,NOT GIVEN CONTINUE TO MONITOR
[2020-06-07] MEDS: ALBUTEROL FS 2.5 MG/0.5 ML VIAL.NEB NEB SCH ×4 (02:13→20:06)
[2020-06-07] MEDS: IPRATROPIUM NEB FS 0.5 MG/2.5 ML AMPUL.NEB NEB SCH ×4 (02:13→20:06)
[2020-06-07 04:00] VITALS: BP 117/69
[2020-06-07] MEDS: HYDROCORTISONE SOD SUCCINATE 100 MG/2 ML VIAL IV SCH ×3 (04:29→21:21)
[2020-06-07] MEDS: FLUDROCORTISONE 0.1 MG TABLET GT SCH ×4 (06:00→18:09)
--- NOTE | 2020-06-07 06:00 | NUR ---
RN NOTE FLORINEF IS NOT AVAILABLE NOT GIVEN CALLED PHARMACY WILL PROVIDE SOON
[2020-06-07] MEDS: GLUCERNA 1.2 1,000 ML BOTTLE NG PRN (06:12)
[2020-06-07 07:04] LABS: CALCIUM, SERUM 7.9 mg/dL (8.5-10.1); CREATININE 2.3 mg/dL (0.6-1.3); POTASSIUM 4.5 mmol/L (3.5-5.1)
--- NOTE | 2020-06-07 07:07 | NUR ---
RN CLOSING NOTE PATIENT REMAINS LAYING IN BED ON TRACH/VENT OBTUNDED,OPEN EYES,IV SITE IS ON RIGHT UPPER ARM PICC LINE INTACT PATENT NORMAL SALINE 0.9% 75CC/HR RUNNING,ON G-TUBE FEEDING GLUCERNA 1.2 65CC/HR CHECKED ,SANDOVAL CATHETER IN PLACE,URINE RUNNING,COLOSTOMY BAG IN LEFT LOWER ABDOMEN, HEAD OF BED ELEVATED,SAFETY PLACE IMPLEMENT,BED IN LOW POSITON AND LOCKED,ALL DUE MEDS GIVEN MD ORDERED KEPT CLEAN AND DRY ALL THE TIME,ALL NEEDS MET.ENDORSE NEXT COMING SHIFT FOR CONTINUATION OF CARE
[2020-06-07] MEDS: BLOOD SUGAR DIAGNOSTIC 1 EACH STRIP VI SCH ×4 (07:30→21:41)
--- NOTE | 2020-06-07 07:30 | NUR ---
RN OPENING NOTE TRACH PT ON VENT LAYING IN BED SEMIFOWLERS, OBTUNDED, ABLE TO NOD/SHAKE HEAD TO YES/NO QUESTIONS. PT ON VENT SETTINGS AC 20, TV 500, FIO2 40%, PEEP 0, SPO2 OF 99%, NO SIGNS OF RESP DISTRESS OR SOB, BREATHING EVEN AND UNLABORED. SCROTAL EDEMA NOTED, BLE EDEMA PITTING 2+ NOTED WELL SCARS NOTED ON BILAT LEGS. PT HAS JORDON PICC LINE RUNNING NS @ 75ML/HR, LINE FLUSHED, PATENT AND INTACT, NO SIGNS OF INFECTION OR INFILTRATION. PT SANDOVAL CATH DRAINING LEANNE URINE WITH SEDIMENT AND SCANT BLOOD CLOTS NOTED. PT GT AUSCULTATED FOR POSITIVE PLACEMENT, FLUSHED, PATENT WITH NO RESIDUALS NOTED, GLUCERNA 1.2 RUNNING AT 65ML/HR. SACRAL WOUND COVERED, CLEAN AND INTACT. PT REPOSITIONED, WILL DO Q2H PER PROTOCOL. ALL PT SAFETY MEASURES IN PLACE, WILL CONT TO MONITOR Addendum: 06/07/20 at 1028 by MICHAELA MALCOLM RN COLOSTOMY BAG INTACT, STOMA PINK WITH NO SIGNS OF INFECTION
[2020-06-07 08:00] VITALS: BP 112/69
[2020-06-07] MEDS: PANTOPRAZOLE 40 MG/PACK PACK PO SCH (08:27)
[2020-06-07] MEDS: MEMANTINE HCL 5 MG TABLET GT SCH ×2 (08:27→18:07)
[2020-06-07] MEDS: MEROPENEM 500 MG in IV NS 0.9% 100 ML IV SCH ×2 (08:28→21:21)
[2020-06-07] MEDS: DOCUSATE SODIUM LIQ 100 MG/10 ML UDC GT SCH ×2 (08:28→18:07)
[2020-06-07] MEDS: INSULIN REGULAR, HUMAN 100 UNIT/ML 3 ML VIAL SQ PRN ×3 (08:30→18:10)
[2020-06-07] MEDS: Z GUARD REMEDY 2 OZ OINT TP SCH (08:31)
[2020-06-07] MEDS: DIGOXIN 0.125 MG TABLET GT SCH (09:00)
--- NOTE | 2020-06-07 09:00 | NUR ---
RN NOTE INFORMED MARK VISUAL MERCHANDISING SPECIALIST OF LAB VALUES: -06/07- LACTIC ACID 2.2 -06/07- BUN 127 -06/06- WBC 38.7 -06/06- HGB 7.1- 1 UNIT PRBC TRANSFUSED YESTERDAY AND NO CBC DRAWN TODAY
[2020-06-07 09:15] LABS: BASOPHILS % (AUTO) 0.2 % (0.0-2.0); HEMATOCRIT 28 % (39-51); HEMOGLOBIN 8.7 g/dL (13.5-17.5); LYMPHOCYTES # (AUTO) 0.5 /CMM (0.8-4.8); LYMPHOCYTES % (AUTO) 1.9 % (20.0-44.0); MEAN CORPUSCULAR HGB CONC 32 g/dl (31.0-36.0); MEAN CORPUSCULAR VOLUME 86 fL (80-96); MONOCYTES # (AUTO) 0.7 /CMM (0.1-1.30); MONOCYTES % (AUTO) 2.7 % (2.0-12.0); NEUTROPHILS # (AUTO) 25.1 /CMM (1.8-8.9); NEUTROPHILS % (AUTO) 95.2 % (43.0-81.0); PLATELET COUNT (AUTO) 266 /CMM (150-450); RED BLOOD CELL COUNT(AUTO) 3.22 MIL/uL (4.5-6.0); WHITE BLOOD COUNT (AUTO) 26.3 K/uL (4.3-11.0)
[2020-06-07 09:30] LABS: BILIRUBIN,DIRECT 0.1 mg/dL (0.0-0.2); BILIRUBIN,TOTAL 0.2 mg/dL (0.2-1.0)
[2020-06-07] MEDS: IV NS 0.9% 1,000 ML IV PRN (11:31)
[2020-06-07 12:00] VITALS: BP 111/65
--- NOTE | 2020-06-07 15:22 | NUR ---
RN NOTE OBTAINED CONSENT FROM MADDI FOR WOUND DEBRIDEMENT OF SACRUM, BUTTOCK, PERINEUM AND LOW BACK. 2ND RN WITNESS SIGNED OFF
[2020-06-07] MEDS: SOD FERRIC GLUC 125 MG in IV NS 0.9% 100 ML IV SCH (15:51)
[2020-06-07 16:00] VITALS: BP 116/67
--- NOTE | 2020-06-07 18:45 | NUR ---
RN NOTE MULTIPPLE WOUND DEBRIDEMENT SCHEDULED FOR TOMORROW
--- NOTE | 2020-06-07 19:00 | NUR ---
RN CLOSING NOTE NO CHANGES TO PT STATUS DURING SHIFT. PT ON VENT SETTINGS ORDER, NO SOB OR RESP DISTRESS, SPO2 100%. ALL PT SAFETY MEASURES IN PLACE. WILL ENDORSE ERIC TO ONCOMING RN
--- NOTE | 2020-06-07 19:25 | NUR ---
RECEIVED PT ON BED OBTUNDED OPEN EYES TO STIMULI, ON TRACH/VENT SETTING PER MD WITH FIO2 40% SPO2 97%, TELE MONITOR READS SINUS RHYTHM 60'S HAVE GTUBE IN PLACE RESIDUAL 0ML WITH ONGOING GLUCERNA @ 65ML/HR TOLERATING WELL HAVE JORDON PICC DRESSING CLEAN DRY INTACT, PATENT AND FLUSHED WITH ONGOING NS @ 75ML/HR INFUSING WELL, BED ON LOWEST POSITION AND LOCKED SIDE RAILS UP X2 CALL LIGHT WITHIN REACH WILL CONT TO MONITOR
[2020-06-07 20:00] VITALS: BP 129/69
[2020-06-07] MEDS: *INSULIN REGULAR(HUMULIN R)HUM 100 UNIT/ML VIAL SQ PRN (21:43)
[2020-06-08] VITALS: BP 123/78
[2020-06-08] MEDS: FLUDROCORTISONE 0.1 MG TABLET GT SCH ×5 (00:13→23:40)
[2020-06-08] MEDS: GLUCERNA 1.2 1,000 ML BOTTLE NG PRN ×2 (00:14→18:32)
[2020-06-08] MEDS: IV NS 0.9% 1,000 ML IV PRN ×2 (00:23→22:25)
[2020-06-08] MEDS: IPRATROPIUM NEB FS 0.5 MG/2.5 ML AMPUL.NEB NEB SCH ×4 (02:06→19:49)
[2020-06-08] MEDS: ALBUTEROL FS 2.5 MG/0.5 ML VIAL.NEB NEB SCH ×4 (02:06→19:49)
[2020-06-08 04:00] VITALS: BP 140/70
[2020-06-08] MEDS: HYDROCORTISONE SOD SUCCINATE 100 MG/2 ML VIAL IV SCH ×3 (05:06→21:20)
[2020-06-08 06:29] LABS: BASOPHILS % (AUTO) 0.1 % (0.0-2.0); HEMATOCRIT 29 % (39-51); HEMOGLOBIN 9.1 g/dL (13.5-17.5); LYMPHOCYTES # (AUTO) 0.6 /CMM (0.8-4.8); LYMPHOCYTES % (AUTO) 3.4 % (20.0-44.0); MEAN CORPUSCULAR HGB CONC 31 g/dl (31.0-36.0); MEAN CORPUSCULAR VOLUME 87 fL (80-96); MONOCYTES # (AUTO) 0.5 /CMM (0.1-1.30); MONOCYTES % (AUTO) 2.9 % (2.0-12.0); NEUTROPHILS # (AUTO) 17.1 /CMM (1.8-8.9); NEUTROPHILS % (AUTO) 93.6 % (43.0-81.0); PLATELET COUNT (AUTO) 264 /CMM (150-450); RED BLOOD CELL COUNT(AUTO) 3.34 MIL/uL (4.5-6.0); WHITE BLOOD COUNT (AUTO) 18.3 K/uL (4.3-11.0)
[2020-06-08 06:47] LABS: CALCIUM, SERUM 7.8 mg/dL (8.5-10.1); CREATININE 1.9 mg/dL (0.6-1.3); POTASSIUM 3.6 mmol/L (3.5-5.1)
[2020-06-08] MEDS: BLOOD SUGAR DIAGNOSTIC 1 EACH STRIP VI SCH ×4 (07:02→21:20)
[2020-06-08] MEDS: INSULIN REGULAR, HUMAN 100 UNIT/ML 3 ML VIAL SQ PRN ×3 (07:03→17:18)
--- NOTE | 2020-06-08 07:28 | NUR ---
RN OPEN NOTES RECEIVED PT ON BED OBTUNDED, OPEN EYES TO SOUND AND TOUCH, ON TRACH/VENT SETTING WITH FIO2 40% SPO2 97%, ON TELE MONITOR SR-SB. GTUBE IN PLACE RESIDUAL 0ML WITH ONGOING GLUCERNA @ 65ML/HR TOLERATING. HAS JORDON PICC DRESSING CLEAN DRY INTACT, RUNNING NS @ 75ML/HR INFUSING WELL, BED ON LOWEST POSITION AND LOCKED SIDE RAILS UP X2 CALL LIGHT WITHIN REACH WILL CONT TO MONITOR.
[2020-06-08] MEDS: DIGOXIN 0.125 MG TABLET GT SCH ×2 (09:00→09:07)
[2020-06-08] MEDS: DOCUSATE SODIUM LIQ 100 MG/10 ML UDC GT SCH ×2 (09:07→16:27)
[2020-06-08] MEDS: MEMANTINE HCL 5 MG TABLET GT SCH ×2 (09:07→16:27)
[2020-06-08] MEDS: Z GUARD REMEDY 2 OZ OINT TP SCH (09:08)
[2020-06-08] MEDS: MEROPENEM 500 MG in IV NS 0.9% 100 ML IV SCH (09:08)
[2020-06-08] MEDS: PANTOPRAZOLE 40 MG/PACK PACK PO SCH (09:08)
[2020-06-08 09:33] VITALS: BP 122/79
--- NOTE | 2020-06-08 10:30 | NUR ---
VENT CHANGES ORDERED BY DR NAJERA BASED UPON ABG SHOWN TO DR NAJERA. FOLLOWING CHANGES ARE: VT 450 RATE 16
[2020-06-08 12:00] VITALS: BP 125/67
[2020-06-08] MEDS ORDERED: CEFTRIAXONE 1 G VIAL IM SCH (14:30)
[2020-06-08] MEDS: SOD FERRIC GLUC 125 MG in IV NS 0.9% 100 ML IV SCH (14:46)
[2020-06-08 16:00] VITALS: BP 108/72
[2020-06-08] MEDS: CEFTRIAXONE 1 G in IV D5W 50 ML IV SCH (16:27)
--- NOTE | 2020-06-08 19:22 | NUR ---
RN CLOSING NOTES RECEIVED PT ON BED OBTUNDED, OPEN EYES TO SOUND AND TOUCH, ON TRACH/VENT SETTING WITH FIO2 40% SPO2 97%, ON TELE MONITOR SR-SB. GTUBE IN PLACE RESIDUAL 0ML WITH ONGOING GLUCERNA @ 65ML/HR TOLERATING. HAS JORDON PICC DRESSING CLEAN DRY INTACT, RUNNING NS @ 75ML/HR INFUSING WELL, BED ON LOWEST POSITION AND LOCKED SIDE RAILS UP X2 CALL LIGHT WITHIN REACH WILL. ALL NEEDS, AND TREATMENTS WERE PERFORMED ANTICIPATED. WILL ENDORSE TO THE NEXT COUNTER MANAGER. ENDORSE TO THE NEXT COUNTER MANAGER NURSE.
--- NOTE | 2020-06-08 19:30 | NUR ---
TELE1 RN NOTES RECEIVED ON BED A/O X1-2,OPEN EYES,ON TRACH/VENT,SETTINGS TOLERATED WELL.NOTED COLOSTOMY BAD ON LEFT LOWER ABDOMEN,WITH GT FEEDING OF GLUCERNA AT 65ML/HR RATE,NO RESIDUAL VOLUME NOTED.HOB ELEVATED FOR ASPIRATION PRECAUTION.NEGATIVE COVID TEST ON 06/04.WITH JORDON MIDLINE INFUSING NS AT 75ML/HR RATE VIA IV PUMP.S/P SACRAL WOUND DEBRIDEMENT TODAY,DRESSING INTACT AND DRY.WILL REPOSITION PER PROTOCOL.WILL CONTINUE TO MONITOR STATUS.
[2020-06-08 20:00] VITALS: BP 137/79
--- NOTE | 2020-06-08 20:00 | NUR ---
TELE1 RN NOTES SR-SA WITH BBB,EPISODE OF 1ST DEGREE AV BLOCK,HR-77 ON TELE MONITOR
[2020-06-08] MEDS: *INSULIN REGULAR(HUMULIN R)HUM 100 UNIT/ML VIAL SQ PRN (21:36)
--- NOTE | 2020-06-08 22:00 | NUR ---
TELE1 RN NOTES ACCU-CHECK BLOOD SUGAR CHECK 209,COVERED WITH HUMULIN R 4 UNITS PER SLIDING SCALE.GLUCERNA 1.2 INFUSING WELL VIA GT AT 65ML/HR RATE,NO RESIDUAL VOLUME NOTED.
[2020-06-09] VITALS: BP 137/73
--- NOTE | 2020-06-09 | NUR ---
TELE1 RN NOTES EVENING CARE RENDERED,TOLERATED WELL.
[2020-06-09] MEDS: ALBUTEROL FS 2.5 MG/0.5 ML VIAL.NEB NEB SCH ×4 (01:47→19:10)
[2020-06-09] MEDS: IPRATROPIUM NEB FS 0.5 MG/2.5 ML AMPUL.NEB NEB SCH ×4 (01:47→19:09)
[2020-06-09 04:00] VITALS: BP 137/73
[2020-06-09] MEDS: HYDROCORTISONE SOD SUCCINATE 100 MG/2 ML VIAL IV SCH ×3 (04:53→21:37)
[2020-06-09] MEDS: FLUDROCORTISONE 0.1 MG TABLET GT SCH ×4 (05:18→23:15)
--- NOTE | 2020-06-09 06:15 | NUR ---
TELE1 RN NOTES NO SIGNIFICANT CHANGE IN STATUS,VENT SETTINGS TOLERATED WELL,GT FEEDING TOLERATED WELL,NO RESIDUAL VOLUME,REPOSITIONED PER PROTOCOL.IN NO ACUTE DISTRESS.
--- NOTE | 2020-06-09 07:53 | NUR ---
PATIENT RECEIVED ON PRESCRIBED VENT/TRACH SETTINGS, NO RESPIRATORY DISTRESS. PATIENT IS ALERT AND ORIENTED X 1-2, ABLE TO FOLLOW COMMANDS AND NOD HEAD YES/NO. PATIENT PRESENTS WITH BLE PITTING EDEMA. PATIENT HAS GLUCERNA RUNNING AT 65 ML/HR. PATIENT RECEIVING NS AT 75 ML/HR IN JORDON PICC, NO SIGNS OF INFECTION OR INFILTRATION. ALL SAFETY MEASURES IN PLACE. WILL CONTINUE TO MONITOR
[2020-06-09 08:00] VITALS: BP 133/72
[2020-06-09] MEDS: BLOOD SUGAR DIAGNOSTIC 1 EACH STRIP VI SCH ×4 (08:35→21:37)
[2020-06-09] MEDS: DOCUSATE SODIUM LIQ 100 MG/10 ML UDC GT SCH ×2 (08:35→16:30)
[2020-06-09] MEDS: PANTOPRAZOLE 40 MG/PACK PACK PO SCH (08:35)
[2020-06-09] MEDS: MEMANTINE HCL 5 MG TABLET GT SCH ×2 (08:35→16:30)
[2020-06-09] MEDS: DIGOXIN 0.125 MG TABLET GT SCH (08:36)
[2020-06-09] MEDS: Z GUARD REMEDY 2 OZ OINT TP SCH (08:42)
[2020-06-09] MEDS: INSULIN REGULAR, HUMAN 100 UNIT/ML 3 ML VIAL SQ PRN ×3 (08:42→18:17)
[2020-06-09] MEDS: DAKINS HALF STRENGTH (0.25%) 480 ML BOTTLE TOP SCH (08:42)
[2020-06-09 10:19] LABS: CALCIUM, SERUM 8.1 mg/dL (8.5-10.1); CREATININE 1.7 mg/dL (0.6-1.3); POTASSIUM 3.5 mmol/L (3.5-5.1)
--- NOTE | 2020-06-09 11:00 | NUR ---
MD FERNANDO NOTOFIED OF CRITICAL BUN 109, MD FERNANDO ALSO NOTIFIED OF PATIENT DISCONNECTING HIMSELF FROM VENT 2X. ORDERS RECEIVED TO TRY BILATERAL SOFT MITTEN RESTRAINTS FIRST, OK TO USE SOFT WRIST RESTRAINTS IF MITTENS ARE INEFFECTIVE.
[2020-06-09 12:00] VITALS: BP 135/98
[2020-06-09 14:10] LABS: BASOPHILS % (AUTO) 0.1 % (0.0-2.0); EOSINOPHILS % (AUTO) 0.1 % (0.0-6.0); HEMATOCRIT 31 % (39-51); HEMOGLOBIN 9.6 g/dL (13.5-17.5); LYMPHOCYTES # (AUTO) 0.8 /CMM (0.8-4.8); LYMPHOCYTES % (AUTO) 4.6 % (20.0-44.0); MEAN CORPUSCULAR HGB CONC 31 g/dl (31.0-36.0); MEAN CORPUSCULAR VOLUME 87 fL (80-96); MONOCYTES # (AUTO) 0.6 /CMM (0.1-1.30); MONOCYTES % (AUTO) 3.3 % (2.0-12.0); NEUTROPHILS # (AUTO) 15.7 /CMM (1.8-8.9); NEUTROPHILS % (AUTO) 91.9 % (43.0-81.0); PLATELET COUNT (AUTO) 271 /CMM (150-450); RED BLOOD CELL COUNT(AUTO) 3.54 MIL/uL (4.5-6.0); WHITE BLOOD COUNT (AUTO) 17.1 K/uL (4.3-11.0)
[2020-06-09] MEDS: SOD FERRIC GLUC 125 MG in IV NS 0.9% 100 ML IV SCH (14:57)
[2020-06-09 15:25] LABS: LYMPHOCYTES % (MANUAL) 5 % (16-48); MONOCYTES % (MANUAL) 4 % (0-11.0); NEUTROPHILS % (MANUAL) 90 (42-76); REACTIVE LYMPHOCYTES 1 % (0-0)
[2020-06-09 16:00] VITALS: BP 144/80
[2020-06-09] MEDS: CEFTRIAXONE 1 G in IV D5W 50 ML IV SCH (16:30)
[2020-06-09] MEDS: GLUCERNA 1.2 1,000 ML BOTTLE NG PRN (16:30)
--- NOTE | 2020-06-09 19:08 | NUR ---
RN NOTE RECEIVED PT IN BED IN SEMI SOOD'S POSITION. PHYSICALLY RESPONSIVE TO NAME. ON PRECRIBED VENT SETTINGS. SPO2 100%. TRACH MID LINE AND IN PLACE, RESTRAINTS IN PLACE ORDERED FOR SAFETY, SANDOVAL CATHETER PATENT AND IN PLACE DRAINING URINE. GT PATENT AND IN PLACE, WITH GLUCERNA 1.2 2 65ML/HOUR RUNNING ORDERED WITHOUT RESIDUAL NOTED. WITH PICC LINE PATENT AND INTACT WITH NS @ 75ML/HOUR RUNNING WITHOUT COMPLICATIONS NOTED AT SITE, ALARMS ON AND AUDIBLE, SAFETY MEASURES IN PLACE PER PROTOCOL, BED ALARM ON, BED LOCKED AND IN LOW POSITION, SIDE RAILS UP X 3, AMBU BAG AT BEDSIDE
--- NOTE | 2020-06-09 19:27 | NUR ---
PATIENT REMAINS IN BED NO ACUTE CHANGE IN CONDITION. PATIENT IS ON BILATERAL SOFT MITTEN RESTRAINTS ORDERED DUE TO PATIENT DISCONNECTING SELF FROM VENT. ALL WOUND TX COMPLETED DIRECTED. ALL SAFETY MEASURES IN PLACE. ALL NEEDS ENDORSED TO ONCOMING RN FOR ERIC
[2020-06-09 20:00] VITALS: BP 143/74
[2020-06-09] MEDS: *INSULIN REGULAR(HUMULIN R)HUM 100 UNIT/ML VIAL SQ PRN (21:38)
[2020-06-10] VITALS: BP 143/83
[2020-06-10] MEDS: IV NS 0.9% 1,000 ML IV PRN (00:32)
[2020-06-10] MEDS: IPRATROPIUM NEB FS 0.5 MG/2.5 ML AMPUL.NEB NEB SCH ×4 (01:14→20:14)
[2020-06-10] MEDS: ALBUTEROL FS 2.5 MG/0.5 ML VIAL.NEB NEB SCH ×4 (01:14→20:14)
[2020-06-10] MEDS: GLUCERNA 1.2 1,000 ML BOTTLE NG PRN ×2 (01:49→15:35)
[2020-06-10 04:00] VITALS: BP 135/76
[2020-06-10] MEDS: HYDROCORTISONE SOD SUCCINATE 100 MG/2 ML VIAL IV SCH ×3 (04:04→20:24)
[2020-06-10] MEDS: FLUDROCORTISONE 0.1 MG TABLET GT SCH ×4 (05:03→23:20)
--- NOTE | 2020-06-10 06:57 | NUR ---
RN NOTE NO ACUTE CHANGES OBSERVED OVERNIGHT, PT REMAINS ON PRESCRIBED VENT SETTINGS AND IN NO APPARENT DISTRESS, VITAL SIGNS STABLE, PT PHYSICALLY RESPONSIVE TO VERBAL AND TACTILE STIMULI, GT PATENT WITH TUBE FEEDING RUNNING ORDERED WITHOUT RESIDUAL NOTED, SANDOVAL CATHETER PATENT AND IN PLACE DRAINING URINE VIA GRAVITY, PICC LINE PATENT WITH NS @ 75ML/HOUR RUNNING ORDERED WITHOUT COMPLICATIONS NOTED AT SITE, COLOSTOMY BAG CHANGED, ALL NEEDS MET AND ATTENDED TO, SAFETY MEASURES IN PLACE PER PROTOCOL,
[2020-06-10 07:32] LABS: CALCIUM, SERUM 8.3 mg/dL (8.5-10.1); CREATININE 1.4 mg/dL (0.6-1.3); POTASSIUM 3.3 mmol/L (3.5-5.1)
[2020-06-10 08:00] VITALS: BP 139/82
--- NOTE | 2020-06-10 08:00 | NUR ---
PATIENT RECEIVED IN BED ON PRESCRIBED VENT TRACH SETTINGS PORT[place] 7, AC 16, TV 450, FIO2 40% , PEEP 0. PATIENT AOX1, ABLE TO NOD HEAD YES/NO AND FOLLOW COMMANDS. PATIENT ON MONITOR SHOWING SB-SR WITH BBB. PATIENT HAS COLOSTOMY DRAINING SOFT BROWN STOOL. PATIENT HAS G-TUBE RUNNING GLUCERNA 1.2 AT 65 ML//HR. NO RESIDUAL; GTUBE AUSCULTATED. ALL SAFETY MEASURES IN PLACE. WILL CONTINUE TO MONITOR
[2020-06-10] MEDS: BLOOD SUGAR DIAGNOSTIC 1 EACH STRIP VI SCH (08:44)
[2020-06-10] MEDS: DOCUSATE SODIUM LIQ 100 MG/10 ML UDC GT SCH ×2 (08:48→16:56)
[2020-06-10] MEDS: MEMANTINE HCL 5 MG TABLET GT SCH ×2 (08:49→16:56)
[2020-06-10] MEDS: DAKINS HALF STRENGTH (0.25%) 480 ML BOTTLE TOP SCH (08:49)
[2020-06-10] MEDS: DIGOXIN 0.125 MG TABLET GT SCH (08:49)
[2020-06-10] MEDS: PANTOPRAZOLE 40 MG/PACK PACK PO SCH (08:49)
[2020-06-10] MEDS: Z GUARD REMEDY 2 OZ OINT TP SCH (08:50)
[2020-06-10] MEDS: INSULIN REGULAR, HUMAN 100 UNIT/ML 3 ML VIAL SQ PRN ×4 (08:51→23:21)
[2020-06-10] MEDS ORDERED: POTASSIUM CHLORIDE 20 MEQ POWDER PACKET GT SCH (09:30)
[2020-06-10] MEDS ORDERED: HYDROCORTISONE SOD SUCCINATE 100 MG/2 ML VIAL IV SCH (10:00)
--- NOTE | 2020-06-10 10:00 | NUR ---
MD SALINAS NOTIFIED OF POTASSIUM 3.3, PHARMACY REPLACEMENT ALREADY ORDERED PER PROTOCOL. NOTIFIED OF CRITICAL VALUE OF BUN 100/1.4. ALSO NOTIFIED OF CURRENT ACCU-CHECKS [facility], GIVES ORDER TO CHANGE TO Q6H. NO CBC ORDERED FOR THIS SHIFT, MD DOES NOT GIVE ORDER FOR CBC TODAY.
[2020-06-10 12:00] VITALS: BP 145/88
[2020-06-10] MEDS ORDERED: DEXTROSE 50%-WATER 50 ML DISP.SYRIN IV PRN (12:00)
[2020-06-10] MEDS: BLOOD SUGAR DIAGNOSTIC 1 EACH STRIP IN SCH ×3 (12:35→23:20)
[2020-06-10] MEDS: SOD FERRIC GLUC 125 MG in IV NS 0.9% 100 ML IV SCH (14:33)
[2020-06-10] MEDS: CEFTRIAXONE 1 G in IV D5W 50 ML IV SCH (15:27)
[2020-06-10 16:00] VITALS: BP 148/83
--- NOTE | 2020-06-10 16:21 | NUR ---
AIR MATTRESS REQUESTED FROM [facility], WILL CONTINUE TO FOLLOW UP FOR AVAILABILITY
--- NOTE | 2020-06-10 19:20 | NUR ---
PATIENT REMAINS IN BED, NO ACUTE CHANGES IN CONDITION THIS SHIFT, ALL SAFETY MEASURES IN PLACE. PATIENT REPOSITIONED Q2H, AND WOUND TX COMPLETED DIRECTED THIS SHIFT. ALL NEEDS ENDORSED TO ONCOMING RN
--- NOTE | 2020-06-10 19:30 | NUR ---
RECEIVED PT ON BED AWAKE A/O X0 OPEN EYES TO STIMULI,CAN ANSWER YES OR NO ON TRACH/VENT SETTING PER MD WITH FIO2 40% SPO2 97%, TELE MONITOR READS SINUS RHYTHM 60'S HAVE GTUBE IN PLACE RESIDUAL 0ML WITH ONGOING GLUCERNA @ 65ML/HR TOLERATING WELL HAVE JORDON PICC DRESSING CLEAN DRY INTACT, PATENT AND FLUSHED ,BED ON LOWEST POSITION AND LOCKED SIDE RAILS UP X2 CALL LIGHT WITHIN REACH WILL CONT TO MONITOR
[2020-06-10 20:00] VITALS: BP 143/81
[2020-06-11] VITALS: BP 140/80
[2020-06-11] MEDS: IPRATROPIUM NEB FS 0.5 MG/2.5 ML AMPUL.NEB NEB SCH ×4 (01:43→20:13)
[2020-06-11] MEDS: ALBUTEROL FS 2.5 MG/0.5 ML VIAL.NEB NEB SCH ×4 (01:43→20:13)
[2020-06-11 04:00] VITALS: BP 142/76
[2020-06-11] MEDS: FLUDROCORTISONE 0.1 MG TABLET GT SCH ×4 (05:16→23:54)
[2020-06-11] MEDS: BLOOD SUGAR DIAGNOSTIC 1 EACH STRIP IN SCH ×4 (05:26→23:57)
[2020-06-11] MEDS: INSULIN REGULAR, HUMAN 100 UNIT/ML 3 ML VIAL SQ PRN ×4 (05:26→23:59)
--- NOTE | 2020-06-11 06:56 | NUR ---
PT ON BED ASLEEP A/0 X0 OPEN EYES AND CAN NOD YES OR NO TO PAIN OR COLD , ON TRACH, VENT SETTING PER MD NO SIGN AND SYMPTOMS OF ANY RESPIRATORY DISTRESS, TELE MONITOR READS SINUS RHYTHM 60'S, NO SIGNIFICANT CHANGES ON CONDITION NOTED ALL NEEDS ATTENDS, WOUND TREATMENT DONE ORDER BED ON LOWEST POSITION AND LOCKED SIDE RAILS UP X2 CALL LIGHT WITHIN REACH WILL ENDORSE TO AM SHIFT NURSE
[2020-06-11 07:09] LABS: CALCIUM, SERUM 8.1 mg/dL (8.5-10.1); CREATININE 1.4 mg/dL (0.6-1.3); POTASSIUM 3.4 mmol/L (3.5-5.1)
--- NOTE | 2020-06-11 07:25 | NUR ---
RN OPENING NOTES RECEIVED PT IN BED. AOX1. VENT TRACH SETTINGS PORTEX 7, AC: 16, TV: 450, FIO2: 40% , PEEP 0. ABLE TO NOD HEAD YES/NO QUESTIONS. ON TELE MONITOR SHOWING SR WITH BBB. JORDON PICCLINE INTACT, PATENT AND FLUSHED. PT HAS COLOSTOMY DRAINING SOFT BROWN STOOL. GTUBE AUSCULTATED FOR POSITIVE PLACEMENT, RUNNING GLUCERNA 1.2 AT 65 ML//HR, TOLERATING FEEDING WELL. SAFETY MEASURES IN PLACE. HOB ELEVATED. BED LOCKED AND AT LOWEST POSITION WITH SIDE RAILS UP X3. WILL CONTINUE TO MONITOR.
[2020-06-11 08:00] VITALS: BP 122/73
[2020-06-11] MEDS: DOCUSATE SODIUM LIQ 100 MG/10 ML UDC GT SCH ×2 (08:58→16:27)
[2020-06-11] MEDS: PANTOPRAZOLE 40 MG/PACK PACK PO SCH (08:59)
[2020-06-11] MEDS: MEMANTINE HCL 5 MG TABLET GT SCH ×2 (08:59→16:27)
[2020-06-11] MEDS: HYDROCORTISONE SOD SUCCINATE 100 MG/2 ML VIAL IV SCH ×2 (08:59→20:46)
[2020-06-11] MEDS: DIGOXIN 0.125 MG TABLET GT SCH (09:02)
[2020-06-11] MEDS: Z GUARD REMEDY 2 OZ OINT TP SCH (09:03)
[2020-06-11] MEDS: DAKINS HALF STRENGTH (0.25%) 480 ML BOTTLE TOP SCH (09:03)
[2020-06-11] MEDS: GLUCERNA 1.2 1,000 ML BOTTLE NG PRN (09:18)
[2020-06-11] MEDS ORDERED: POTASSIUM CHLORIDE 20 MEQ POWDER PACKET GT ONE (10:00)
[2020-06-11] MEDS ORDERED: POTASSIUM CHLORIDE 20 MEQ TAB.PRT.SR PO SCH (10:00)
[2020-06-11 12:00] VITALS: BP_SYST 117; BP_SYST 140; BP_DIAS 51; BP_DIAS 80
[2020-06-11] MEDS: CEFTRIAXONE 1 G in IV D5W 50 ML IV SCH (15:52)
[2020-06-11 16:00] VITALS: BP 146/80
--- NOTE | 2020-06-11 17:54 | NUR ---
Pt. was on AC/VC 16, 450, 40%, +5. Breathing tx. given, tolerated well no adverse effect noted, Sx 2x + prn small thin yellow secretions, Breath sounds was diminished throughout. Bedside trach and ambubag was on the bedside. Keep monitoring the pt.
--- NOTE | 2020-06-11 19:10 | NUR ---
RN CLOSING NOTES NO SIGNIFICANT CHANGES THROUGHOUT THE SHIFT. NO SOB. NO PAIN REPORTED AT THIS TIME. DUE MEDS GIVEN. NEEDS ATTENDED. SAFETY MEASURES MAINTAINED. WILL ENDORSE TO NIGHT NURSE FOR ERIC.
[2020-06-11 20:00] VITALS: BP 145/84
[2020-06-12] VITALS (29 sets, daily range): BP systolic 33–151; BP diastolic 22–90
[2020-06-12] MEDS: IPRATROPIUM NEB FS 0.5 MG/2.5 ML AMPUL.NEB NEB SCH ×4 (01:40→19:52)
[2020-06-12] MEDS: ALBUTEROL FS 2.5 MG/0.5 ML VIAL.NEB NEB SCH ×4 (01:40→19:52)
--- NOTE | 2020-06-12 01:49 | NUR ---
RT pt received on mechanical vent with current settings. vent plugged in to red outlet. trach patent and secure. alarms on and audible. ambu bag at hob. spare trach at bedside. small secretions suctioned. no sob, no resp distress. will continue to monitor.
[2020-06-12] MEDS: FLUDROCORTISONE 0.1 MG TABLET GT SCH ×3 (05:16→18:00)
[2020-06-12] MEDS: BLOOD SUGAR DIAGNOSTIC 1 EACH STRIP IN SCH ×3 (05:24→17:44)
[2020-06-12] MEDS: INSULIN REGULAR, HUMAN 100 UNIT/ML 3 ML VIAL SQ PRN ×3 (05:26→17:47)
--- NOTE | 2020-06-12 06:37 | NUR ---
RN CLOSING NOTES, PT IN BED, WITH EYES OPEN, VENT TRACH SETTINGS TOLERATED WELL, SR WITH BBB IN TELE MONITOR, NO SIGNIFICANT CHANGE IN CONDITION DURING THE NIGHT, REMAINS STABLE WITH STABLE VITAL SIGNS, SAFETY MEASURES IN PLACE, HOB ELEVATED, BED LOCKED AND AT LOWEST POSITION WITH SIDE RAILS UP X3, WILL ENDORSE CONTINUITY OF CARE TO ONCOMING NURSE.
[2020-06-12 07:03] LABS: CALCIUM, SERUM 7.9 mg/dL (8.5-10.1); CREATININE 1.3 mg/dL (0.6-1.3); POTASSIUM 3.5 mmol/L (3.5-5.1)
--- NOTE | 2020-06-12 07:30 | NUR ---
RN OPENING NOTES PATIENT IN BED, ON VENT, TRACH IN PLACE, TOLERATING SETTINGS WELL, NO SOB NOTED, SPO2 100%, OPENS EYES, G-TUBE NOT FLUSHING, FEEDING STOPPED, R UA PICC LINE FLUSHED, SAFETY MESURES IN PLACESIMBALL CONT TO ARLINE
[2020-06-12] MEDS: DIGOXIN 0.125 MG TABLET GT SCH ×2 (08:13→08:44)
[2020-06-12] MEDS: HYDROCORTISONE SOD SUCCINATE 100 MG/2 ML VIAL IV SCH (08:14)
[2020-06-12] MEDS: MEMANTINE HCL 5 MG TABLET GT SCH ×3 (08:15→16:13)
[2020-06-12] MEDS: DOCUSATE SODIUM LIQ 100 MG/10 ML UDC GT SCH ×3 (08:15→16:13)
[2020-06-12] MEDS: Z GUARD REMEDY 2 OZ OINT TP SCH (08:15)
[2020-06-12] MEDS: PANTOPRAZOLE 40 MG/PACK PACK PO SCH ×2 (08:15→08:44)
[2020-06-12] MEDS: DAKINS HALF STRENGTH (0.25%) 480 ML BOTTLE TOP SCH (08:15)
--- NOTE | 2020-06-12 08:39 | NUR ---
unable to give medications vi GT, GT occluded, not flushing, will notify Hospitalist
[2020-06-12 09:19] LABS: BASOPHILS % (AUTO) 0.1 % (0.0-2.0); EOSINOPHILS % (AUTO) 0.1 % (0.0-6.0); HEMATOCRIT 31 % (39-51); HEMOGLOBIN 9.5 g/dL (13.5-17.5); LYMPHOCYTES # (AUTO) 0.9 /CMM (0.8-4.8); LYMPHOCYTES % (AUTO) 5.2 % (20.0-44.0); MEAN CORPUSCULAR HGB CONC 31 g/dl (31.0-36.0); MEAN CORPUSCULAR VOLUME 88 fL (80-96); MONOCYTES # (AUTO) 0.4 /CMM (0.1-1.30); MONOCYTES % (AUTO) 2.6 % (2.0-12.0); NEUTROPHILS # (AUTO) 15.4 /CMM (1.8-8.9); PLATELET COUNT (AUTO) 204 /CMM (150-450); WHITE BLOOD COUNT (AUTO) 16.7 K/uL (4.3-11.0)
--- NOTE | 2020-06-12 11:02 | NUR ---
DR CASTRO SAW PATIENT WILL FOLLOW UP WITH ORDERS
[2020-06-12] MEDS ORDERED: DIATR MEGLU/DIATRIZOATE SODIUM 30 ML BOTTLE (GASTROGRAPHIN) ONE (12:31)
--- NOTE | 2020-06-12 14:17 | NUR ---
New GT in place, confirmed with XRAY
[2020-06-12] MEDS: GLUCERNA 1.2 1,000 ML BOTTLE NG PRN (14:22)
[2020-06-12] MEDS: CEFTRIAXONE 1 G in IV D5W 50 ML IV SCH (16:14)
[2020-06-12] MEDS: IV D5W 1,000 ML IV PRN ×2 (16:17→18:47)
--- NOTE | 2020-06-12 17:24 | NUR ---
Noted BP 77/46, HR 100, and dropping to 58/36, called MD, giving BOLUS NS , cont to monitor
[2020-06-12] MEDS ORDERED: IV NS 0.9% 1,000 ML IV ONE (17:30)
[2020-06-12 17:52] LABS: BASOPHILS % (AUTO) 0.1 % (0.0-2.0); EOSINOPHILS % (AUTO) 0.1 % (0.0-6.0); LYMPHOCYTES # (AUTO) 0.6 /CMM (0.8-4.8); LYMPHOCYTES % (AUTO) 2.5 % (20.0-44.0); MEAN CORPUSCULAR HGB CONC 30 g/dl (31.0-36.0); MEAN CORPUSCULAR VOLUME 89 fL (80-96); MONOCYTES # (AUTO) 1.1 /CMM (0.1-1.30); MONOCYTES % (AUTO) 4.1 % (2.0-12.0); NEUTROPHILS # (AUTO) 24.3 /CMM (1.8-8.9); NEUTROPHILS % (AUTO) 93.2 % (43.0-81.0); PLATELET COUNT (AUTO) 209 /CMM (150-450); RED BLOOD CELL COUNT(AUTO) 2.11 MIL/uL (4.5-6.0); WHITE BLOOD COUNT (AUTO) 26.1 K/uL (4.3-11.0)
[2020-06-12 18:03] LABS: HEMOGLOBIN 5.6 g/dL (13.5-17.5)
[2020-06-12 18:04] LABS: HEMATOCRIT 19 % (39-51)
--- NOTE | 2020-06-12 18:06 | NUR ---
Hemoglobin 5.6, contacting MD for orders
--- NOTE | 2020-06-12 18:15 | NUR ---
Called lab for stat 2 units PRBC for transfusion, called Dr Ortiz left message
--- NOTE | 2020-06-12 18:30 | NUR ---
Transferred to room 256 via ACLS protocol, report given to Patricio ROBINS
--- NOTE | 2020-06-12 18:35 | NUR ---
Bolus given BP 80/44
[2020-06-12] MEDS: NOREPINEPHRINE 8 MG in IV NS 0.9% 242 ML IV PRN ×2 (18:51→23:09)
[2020-06-12 19:11] LABS: BAND % (MANUAL) 2 % (0.0-5.0); LYMPHOCYTES % (MANUAL) 1 % (16-48); MONOCYTES % (MANUAL) 2 % (0-11.0); NEUTROPHILS % (MANUAL) 95 (42-76)
--- NOTE | 2020-06-12 19:35 | NUR ---
RN OPENING NOTES RECEIVED PT IN BED, NONVERBAL OBTUNDED. PALE. PT IS TRACH TO VENT. SETTING PORTEX 7 AC 16 TV 450 FIO2 40% PEEP 0. PT IS TOLERATING VENT AT THIS TIME. PT O2 SATURATION UNABLE TO CAPTURE CONSISTENTLY. WILL F/U. PT ON CARDIAC MONITORING PRESENTS WITH HR OF 115 AFIB ON MONITOR, PT HAS HISTORY OF PAROXSYMAL AFIB. PT HAS JORDON PICC LINE, FLUSHED ASEPTICALLY WITH GOOD BLOOD RETURN. PT IS ON LEVO AT 0.1MCG/KG/MIN IN ORDER TO MAINTAIN SBP >90, WILL TITRATE ORDERED. GT FLUSHED, 0 RESIDUAL NOTED. PT HAS SANDOVAL CATH DRAINING VIA GRAVITY. SAFETY MEASURES IN PLACE, HOB ELEVATED. SIDE RAILS UP X3. BED LOCKED IN LOWEST POSITION WITH BED ALARM ON. WILL CONT TO MONITOR.
--- NOTE | 2020-06-12 20:00 | NUR ---
UNABLE TO CONSISTENTLY TRACK O2 SATURATION, PT REMAINS WITH VERY POOR CIRCULATION.
--- NOTE | 2020-06-12 20:30 | NUR ---
INFORMED SHOE TREER MARIELENA FOR CHANGE IN PRESSOR HEART RATE HAS INCREASED UP 160.
[2020-06-12] MEDS: PHENYLEPHRINE 50 MG in IV NS 0.9% 245 ML IV PRN (21:05)
--- NOTE | 2020-06-12 21:10 | NUR ---
ORDERS TO START NEOSYNEPHRINE RECEIVED AND CARRIED OUT.
[2020-06-13] VITALS (92 sets, daily range): BP systolic 62–137; BP diastolic 41–73
[2020-06-13] MEDS: FLUDROCORTISONE 0.1 MG TABLET GT SCH ×4 (00:03→17:18)
[2020-06-13] MEDS: BLOOD SUGAR DIAGNOSTIC 1 EACH STRIP IN SCH ×4 (00:10→17:58)
[2020-06-13] MEDS: INSULIN REGULAR, HUMAN 100 UNIT/ML 3 ML VIAL SQ PRN ×2 (00:16→05:50)
[2020-06-13] MEDS ORDERED: NOREPINEPHRINE 8MG/250ML RTU 250 ML IV ONE ×2 (00:20→01:50)
[2020-06-13] MEDS: NOREPINEPHRINE 8 MG in IV NS 0.9% 242 ML IV PRN ×2 (00:28→01:52)
--- NOTE | 2020-06-13 01:05 | NUR ---
PT HAS RECEIVED 2UNITS PRBCS ORDERED
[2020-06-13] MEDS: IPRATROPIUM NEB FS 0.5 MG/2.5 ML AMPUL.NEB NEB SCH ×4 (01:23→19:30)
[2020-06-13] MEDS: ALBUTEROL FS 2.5 MG/0.5 ML VIAL.NEB NEB SCH ×4 (01:23→19:30)
[2020-06-13] MEDS: PHENYLEPHRINE 50 MG in IV NS 0.9% 245 ML IV PRN ×3 (01:48→08:50)
[2020-06-13] MEDS ORDERED: NOREPINEPHRINE 4 MG/4 ML AMPUL IV ONE (03:11)
[2020-06-13] MEDS: NOREPINEPHRINE 32 MG in IV NS 0.9% 218 ML IV PRN ×4 (03:29→19:48)
[2020-06-13] MEDS ORDERED: PHENYLEPHRINE 10 MG/ML VIAL ONE (05:01)
[2020-06-13] MEDS: IV D5W 1,000 ML IV PRN (05:09)
[2020-06-13 05:48] LABS: CALCIUM, SERUM 7.6 mg/dL (8.5-10.1); CREATININE 1.8 mg/dL (0.6-1.3); POTASSIUM 5.8 mmol/L (3.5-5.1)
[2020-06-13] MEDS ORDERED: VANCOMYCIN 1.25 GM in IV D5W 250 ML IV SCH (06:00)
[2020-06-13 07:01] LABS: BASOPHILS # (AUTO) 0.4 /CMM (0.0-0.2); BASOPHILS % (AUTO) 0.4 % (0.0-2.0); EOSINOPHILS % (AUTO) 0.4 % (0.0-6.0); HEMATOCRIT 33 % (39-51); HEMOGLOBIN 9.3 g/dL (13.5-17.5); LYMPHOCYTES # (AUTO) 1.4 /CMM (0.8-4.8); LYMPHOCYTES % (AUTO) 1.2 % (20.0-44.0); MEAN CORPUSCULAR HGB CONC 29 g/dl (31.0-36.0); MEAN CORPUSCULAR VOLUME 97 fL (80-96); MONOCYTES # (AUTO) 2.9 /CMM (0.1-1.30); MONOCYTES % (AUTO) 2.5 % (2.0-12.0); NEUTROPHILS % (AUTO) 95.5 % (43.0-81.0); PLATELET COUNT (AUTO) 135 /CMM (150-450); RED BLOOD CELL COUNT(AUTO) 3.34 MIL/uL (4.5-6.0)
[2020-06-13 07:07] LABS: WHITE BLOOD COUNT (AUTO) 115.2 K/uL (4.3-11.0)
--- NOTE | 2020-06-13 07:26 | NUR ---
RN CLOSING NOTE PT REMAINS ON SAME VENT SETTINGS. BED BATH TOLERATED. UNABLE TO DO WOUND CARE AND T/R DUE TO PT BEING SEVERELY UNSTABLE. PT REMAINS WITH LEVO AT 1MCG, SHAJI AT 2.6 MCG, AND IVF D5W @ 70ML/HR. PT HAS NEW ONSET OF PINK TINGED URINE FROM SANDOVAL, URINARY OUTPUT DECREASED COMPARED TO PT HX. HOB ELEVATED, BED LOCKED IN LOWEST POSITION. SIDE RAILS UP X3. PT AFEBRILE, ALL DUE MEDICATIONS GIVEN. CRITICAL RESULTS OF WBC OF 115.2 ENDORSED BY LUIS MANUEL FROM LAB. ENDORSED TO RISHI ROBINS FOR CONTINUATION OF CARE.
[2020-06-13 08:19] LABS: ABG BASE EXCESS -20.5 mmol/L; ABG OXYGEN SATURATION 95.3 % (92.0-98.5); ABG PCO2 24.6 mmHg (35.0-45.0); ABG PH 7.101 (7.350-7.450); ABG PO2 95.8 mmHg (75.0-100.0); AaDO2 161.1 mmHg; COHb 0.3 % (0.5-1.5); MetHb 0.2 % (0.0-1.5); O2Hb 94.8 % (94.0-97.0); VENT MODE, BG AC16 450 40% 0
[2020-06-13] MEDS ORDERED: SODIUM BICARBONATE SYR 50 MEQ/50 ML DISP.SYRIN IV ONE (08:30)
[2020-06-13] MEDS: MEMANTINE HCL 5 MG TABLET GT SCH ×2 (08:44→17:18)
[2020-06-13] MEDS: PANTOPRAZOLE 40 MG/PACK PACK PO SCH (08:44)
[2020-06-13] MEDS: DIGOXIN 0.125 MG TABLET GT SCH (08:44)
[2020-06-13] MEDS: HYDROCORTISONE SOD SUCCINATE 100 MG/2 ML VIAL IV SCH (08:45)
[2020-06-13] MEDS: DOCUSATE SODIUM LIQ 100 MG/10 ML UDC GT SCH ×2 (08:45→17:18)
[2020-06-13] MEDS: DAKINS HALF STRENGTH (0.25%) 480 ML BOTTLE TOP SCH (08:48)
[2020-06-13] MEDS: Z GUARD REMEDY 2 OZ OINT TP SCH (08:48)
[2020-06-13] MEDS: VASOPRESSIN INJ 40 UNIT in IV NS 0.9% 38 ML IV PRN ×2 (09:18→20:18)
[2020-06-13] MEDS: Sodium Bicarbonate 150 MEQ in IV D5W 1,000 ML IV SCH ×2 (09:19→17:57)
[2020-06-13] MEDS ORDERED: SODIUM POLYSTYRENE SULFONATE 15 G/60 ML BOTTLE PO ONE (09:30)
[2020-06-13] MEDS ORDERED: BUMETANIDE INJ 4 MG in IV D5W 24 ML IV ONE (09:30)
[2020-06-13 09:47] LABS: BAND % (MANUAL) 5 % (0.0-5.0); MONOCYTES % (MANUAL) 3 % (0-11.0); NEUTROPHILS % (MANUAL) 92 (42-76)
[2020-06-13 09:51] LABS: LYMPHOCYTES % (MANUAL) 0 % (16-48)
[2020-06-13] MEDS: MEROPENEM 500 MG in IV NS 0.9% 50 ML IV SCH ×3 (09:51→23:17)
[2020-06-13] MEDS ORDERED: VANCOMYCIN 1.5 GM in IV D5W 500 ML IV ONE (10:00)
[2020-06-13 11:31] LABS: BILIRUBIN,DIRECT 0.9 mg/dL (0.0-0.2); BILIRUBIN,TOTAL 1.4 mg/dL (0.2-1.0)
[2020-06-13] MEDS: MICAFUNGIN SODIUM 100 MG in IV NS 0.9% 100 ML IV SCH (11:58)
[2020-06-13] MEDS: VANCOMYCIN HCL 125 MG/2.5 ML ORAL.SUSP GT SCH ×2 (12:10→17:18)
[2020-06-13] MEDS: METRONIDAZOLE 500MG/ NS 100ML 500 MG in PREMIX 1 EA IV SCH ×2 (13:06→17:18)
[2020-06-13 13:43] LABS: ABG OXYGEN SATURATION 91.9 % (92.0-98.5); ABG PCO2 25.9 mmHg (35.0-45.0); ABG PH 7.162 (7.350-7.450); ABG PO2 77.3 mmHg (75.0-100.0); AaDO2 178.1 mmHg; COHb 0.3 % (0.5-1.5); MetHb 0.8 % (0.0-1.5); O2Hb 90.9 % (94.0-97.0); SITE, ABG Right Radial; VENT MODE, BG AC16 45040% 0
[2020-06-13 14:21] LABS: CALCIUM, SERUM 7.3 mg/dL (8.5-10.1); CREATININE 1.9 mg/dL (0.6-1.3); POTASSIUM 5.6 mmol/L (3.5-5.1)
[2020-06-13] MEDS: PHENYLEPHRINE 100 MG in IV NS 0.9% 240 ML IV PRN ×2 (14:31→23:23)
[2020-06-13 16:38] LABS: BILIRUBIN,URINE LARGE (NEGATIVE); COLOR,URINE AMBER (YELLOW); LEUKOCYTE ESTERASE ,URINE MODERATE (NEGATIVE); NITRITE, URINE POSITIVE (NEGATIVE); PROTEIN,URINE >=300 mg/dl (NEGATIVE); UGLUCOSE 100 MG/DL mg/dL (NEGATIVE)
[2020-06-13 16:52] LABS: CREATININE, URINE < 13.0 MG/DL (30.0-125.0); URINE SODIUM, RANDOM 121 mmol/l (40-220)
[2020-06-13 17:21] LABS: RBC,URINE TOO NUMEROUS TO COUN /HPF (0-2)
[2020-06-13 17:22] LABS: BACTERIA,URINE 3+ /HPF (None Seen); SQUAMOUS EPITHELIAL CELL,UR Few /HPF (None Seen); WBC,URINE TOO NUMEROUS TO COUN /HPF (0-3)
[2020-06-13 17:23] LABS: URINE AMORPHOUS PHOSPHATES Moderate /HPF (None Seen)
[2020-06-13] MEDS ORDERED: IV NS 0.9% 250 ML IV PRN (17:30)
[2020-06-13 17:51] LABS: EOSINOPHIL,URINE None Seen
[2020-06-13 17:57] LABS: URINE TOTAL PROTEIN 1551.7 mg/dL (0-11.9)
--- NOTE | 2020-06-13 18:07 | NUR ---
RN NOTE 0715: Received patient obtunded, with trache to vent. On 2 pressors, still noted with SBP 80;s will titrate as ordered. Foreman cath intact, noted with minimal amount of urine, with hematuria. With GT intact, clamped. Sacral wound dressing intact. JORDON PICC intact. Colostomy intact, noted with minimal dark stool with blood. 0830: S/E by Dr. Conn, SBP still low on 2 max pressors, obtained Vaso for 3rd pressor. ABG resulted and Dr. Conn ordered 1amp Bicarb push and start on D5W with 3 amps Bicarb @ 75. 0840: S/E by Dr. Vasquez, updated re: the patient, will start on 3rd pressor and will obtain BC. 0900: Dr. Prasad changed Biarb drip rate to 125. EKGG resulted ordered by Dr. Prasad, made him aware of the result, ST, no new order at this time. 60gms Kayexalate given as ordered. Sent sputum and urine for studies. 1100: Spoke with Estefani, and updated re: patient's condition. 1400: Repeat ABG done, Dr. Conn aware with vent change of AC rate to 24, RT made aware. 1500: Able to get BC specimen from peripheral after 3tries, 1 got from PICC line. 1800: New PICC inserted by PICC nurse on MIREYA, removed JORDON PICC and sent tip to lab for CS. Turned and repositioned q2.
--- NOTE | 2020-06-13 19:00 | NUR ---
Received patient with trache. to the ventilator on AC mode,with deep ,labored breathing,pulse ox monitor not picking up any reading most of the time(due to cold extremities). Tachycardic PX=103's-130's, On 3 pressors( Levophed drip,Vasopressin drip and Neosynephrine drip) all on max dose.Patient full code, aware of grave condition.
--- NOTE | 2020-06-13 20:17 | NUR ---
RECEIVED PT ON VENT, TRACH PORTEX 7. SX'D SMALL AMT OF THICK YELLOW SECRETIONS. VENT ALARMS SET AND AUDIBLE. 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 CONTINUE TO MONITOR CLOSELY. Addendum: 06/13/20 at 2020 by YOCASTA MIRELES RT Amended: Links added.
--- NOTE | 2020-06-13 22:00 | NUR ---
No change in status. Pulse ox ,still not reading well, occasionally picks up ,reading 88-90%.
[2020-06-14] VITALS (90 sets, daily range): BP systolic 83–139; BP diastolic 41–67
--- NOTE | 2020-06-14 | NUR ---
Remains very critical and unstable.BP still labile,unable to wean down any of the drips, attempted to wean down Levophed drip ( as low as 0.7 mcg/kg/min. ) but BP drops in the 80's systolic.
[2020-06-14] MEDS: FLUDROCORTISONE 0.1 MG TABLET GT SCH ×4 (00:08→17:10)
[2020-06-14] MEDS: METRONIDAZOLE 500MG/ NS 100ML 500 MG in PREMIX 1 EA IV SCH ×4 (00:08→17:11)
[2020-06-14] MEDS: VANCOMYCIN HCL 125 MG/2.5 ML ORAL.SUSP GT SCH ×4 (00:09→17:10)
[2020-06-14] MEDS: BLOOD SUGAR DIAGNOSTIC 1 EACH STRIP IN SCH ×4 (00:18→17:10)
[2020-06-14] MEDS: NOREPINEPHRINE 32 MG in IV NS 0.9% 218 ML IV PRN ×2 (01:22→08:42)
[2020-06-14] MEDS: IPRATROPIUM NEB FS 0.5 MG/2.5 ML AMPUL.NEB NEB SCH ×4 (01:29→19:46)
[2020-06-14] MEDS: ALBUTEROL FS 2.5 MG/0.5 ML VIAL.NEB NEB SCH ×4 (01:29→19:46)
[2020-06-14] MEDS: PHENYLEPHRINE 100 MG in IV NS 0.9% 240 ML IV PRN ×4 (02:04→21:40)
[2020-06-14] MEDS: Sodium Bicarbonate 150 MEQ in IV D5W 1,000 ML IV SCH ×3 (02:27→22:16)
--- NOTE | 2020-06-14 04:00 | NUR ---
AM bath done,sacral decub care,dressings changed ,noted to be bleeding.
[2020-06-14 04:36] LABS: CALCIUM, SERUM 7.2 mg/dL (8.5-10.1); CREATININE 2.1 mg/dL (0.6-1.3); POTASSIUM 5.8 mmol/L (3.5-5.1)
[2020-06-14] MEDS: MEROPENEM 500 MG in IV NS 0.9% 50 ML IV SCH ×3 (05:40→21:25)
[2020-06-14] MEDS ORDERED: VANCOMYCIN 1.25 GM in IV D5W 250 ML IV SCH (06:00)
--- NOTE | 2020-06-14 06:00 | NUR ---
Finger stick = 59, 1 amp D50 IVP given. Patient anuric 30 ml. hematuric.
--- NOTE | 2020-06-14 06:30 | NUR ---
Awaiting Vanco trough result prior giving Vancomycin IV dose due @ 0600
--- NOTE | 2020-06-14 07:00 | NUR ---
Report given to Johnny ROBINS .patient still on max dose Levophed,Neosynephrine and Vasopressin drip for BP support.
[2020-06-14 08:10] LABS: ABG BASE EXCESS -18.2 mmol/L; ABG OXYGEN SATURATION 87.1 % (92.0-98.5); ABG PCO2 29.7 mmHg (35.0-45.0); ABG PH 7.121 (7.350-7.450); ABG PO2 69.1 mmHg (75.0-100.0); AaDO2 181.9 mmHg; COHb 0.3 % (0.5-1.5); PEEP,BG 0 cm H2O; SITE, ABG Left Radial; VT, ABG 450 mL
[2020-06-14] MEDS: PANTOPRAZOLE 40 MG/PACK PACK PO SCH (08:19)
[2020-06-14] MEDS: DAKINS HALF STRENGTH (0.25%) 480 ML BOTTLE TOP SCH (08:20)
[2020-06-14] MEDS: Z GUARD REMEDY 2 OZ OINT TP SCH (08:20)
[2020-06-14] MEDS: DOCUSATE SODIUM LIQ 100 MG/10 ML UDC GT SCH ×2 (08:20→17:10)
[2020-06-14] MEDS: MEMANTINE HCL 5 MG TABLET GT SCH ×2 (08:20→17:10)
[2020-06-14] MEDS: HYDROCORTISONE SOD SUCCINATE 100 MG/2 ML VIAL IV SCH (08:20)
[2020-06-14] MEDS: DIGOXIN 0.125 MG TABLET GT SCH (08:20)
[2020-06-14] MEDS ORDERED: SODIUM BICARBONATE SYR 50 MEQ/50 ML DISP.SYRIN IV ONE (08:30)
[2020-06-14] MEDS ORDERED: SODIUM POLYSTYRENE SULFONATE 15 G/60 ML BOTTLE PO ONE (09:00)
[2020-06-14] MEDS ORDERED: IV NS 0.9% 1,000 ML BAG IV ONE (09:00)
--- NOTE | 2020-06-14 09:04 | NUR ---
RN NOTE 0715: Received patient with trache to vent, no respiratory distress noted at this time. Patient is obtunded. With GT intact, clamped. With Foreman cath intact, noted with very minimal UOP with hematuria. With LLQ colostomy, bag intact, noted with stool, with blood. With MIREYA PICC intact, on 3 pressors Levo, Phil and Vaso all maxed out, will titraite as ordered, please see IV spreadsheet. On Bicarb drip, infusing as ordered. With Sacral decub, per report from previous shift, wound was noted with bleeding too, awaiting CBC result for today. 0810: S/E by Dr. Prasad, made aware for very minimal UOP and K 5.8. With order to give 2.1LNS to run 4 hours and Kayexalate. 0830: S/E by Dr. Conn, with order, ABG resulted, with order to give additional 1amp Bicarb. 0850: S/E by Dr. Vasquez, no new order at this time. 0900: Able to titrate Levo to 0.4, will continue POC.
[2020-06-14] MEDS ORDERED: BUMETANIDE INJ 4 MG in IV D5W 24 ML IV ONE (09:30)
[2020-06-14 09:54] LABS: BILIRUBIN,DIRECT 1.4 mg/dL (0.0-0.2); TOTAL PROTEIN, SERUM 3.3 g/dL (6.4-8.2)
--- NOTE | 2020-06-14 09:56 | NUR ---
RN NOTE Lab called and wanting to draw blood again for CBC.
[2020-06-14 10:38] LABS: BASOPHILS # (AUTO) 0.2 /CMM (0.0-0.2); BASOPHILS % (AUTO) 0.3 % (0.0-2.0); EOSINOPHILS % (AUTO) 0.1 % (0.0-6.0); HEMATOCRIT 23 % (39-51); LYMPHOCYTES # (AUTO) 0.6 /CMM (0.8-4.8); LYMPHOCYTES % (AUTO) 0.8 % (20.0-44.0); MEAN CORPUSCULAR HGB CONC 28 g/dl (31.0-36.0); MEAN CORPUSCULAR VOLUME 99 fL (80-96); MONOCYTES % (AUTO) 2.6 % (2.0-12.0); NEUTROPHILS # (AUTO) 74.1 /CMM (1.8-8.9); NEUTROPHILS % (AUTO) 96.2 % (43.0-81.0); PLATELET COUNT (AUTO) 51 /CMM (150-450); RED BLOOD CELL COUNT(AUTO) 2.33 MIL/uL (4.5-6.0)
[2020-06-14 10:41] LABS: HEMOGLOBIN 6.5 g/dL (13.5-17.5)
[2020-06-14] MEDS: MICAFUNGIN SODIUM 100 MG in IV NS 0.9% 100 ML IV SCH (11:16)
[2020-06-14 12:31] LABS: BAND % (MANUAL) 2 % (0.0-5.0); LYMPHOCYTES % (MANUAL) 2 % (16-48); MONOCYTES % (MANUAL) 5 % (0-11.0); NEUTROPHILS % (MANUAL) 91 (42-76)
--- NOTE | 2020-06-14 14:19 | NUR ---
RN NOTE 1 unit PRBC still ongoing. Spoke with Estefani, and given update. Aware for the poor prognosis at this time, still on 3 pressors, bicarb drip and patient has no response to tactile stimuli. wishes to continue Full code.
[2020-06-14] MEDS: VASOPRESSIN INJ 40 UNIT in IV NS 0.9% 38 ML IV PRN (15:25)
[2020-06-15] VITALS (14 sets, daily range): BP systolic 93–108; BP diastolic 16–48
[2020-06-15] MEDS: FLUDROCORTISONE 0.1 MG TABLET GT SCH (00:19)
[2020-06-15] MEDS: METRONIDAZOLE 500MG/ NS 100ML 500 MG in PREMIX 1 EA IV SCH (00:19)
[2020-06-15] MEDS: VANCOMYCIN HCL 125 MG/2.5 ML ORAL.SUSP GT SCH (00:20)
[2020-06-15] MEDS: BLOOD SUGAR DIAGNOSTIC 1 EACH STRIP IN SCH (00:32)
[2020-06-15] MEDS: ALBUTEROL FS 2.5 MG/0.5 ML VIAL.NEB NEB SCH (01:39)
[2020-06-15] MEDS: IPRATROPIUM NEB FS 0.5 MG/2.5 ML AMPUL.NEB NEB SCH (01:39)
[2020-06-15] MEDS: PHENYLEPHRINE 100 MG in IV NS 0.9% 240 ML IV PRN (03:06)
--- NOTE | 2020-06-15 03:58 | NUR ---
PATIENT'S RHYTHM WAS AFIB WITH A HR OF 71 AND ACCORDING TO COIL TESTER PATIENT WENT INTO ASYSTOLE AND ACLS PROTOCOL WAS ACTIVATED.
--- NOTE | 2020-06-15 03:58 | NUR ---
INCREASED FIO2 TO 100% DUE TO DESATURATION. CALLED A CODE @ 4:00 AM . CPR PERFORMED.
--- NOTE | 2020-06-15 04:10 | NUR ---
PATIENT IS AFIB WITH HR OF 70. FAMILY NOTIFIED AND WANT TO CONTINUE FULL CODE.
--- NOTE | 2020-06-15 04:20 | NUR ---
PATIENT RHYTHM WAS AFIB WITH HR AT 85 AND WENT INTO ASYSTOLE FOR THE 2ND TIME. ACLS PROTOCOL ACTIVATED. PLEASE SEE CODE BLUE SHEET.
--- NOTE | 2020-06-15 04:24 | NUR ---
WAS ABLE TO GET PATIENT PULSE. CODE BLUE END AT 7747
--- NOTE | 2020-06-15 04:30 | NUR ---
PLEASE SEE CODE BLUE SHEET FOR FURTHER ACLS PROTOCOL.
--- NOTE | 2020-06-15 04:31 | NUR ---
FAMILY NOTIFIED AND AWARE OF PATIENTS CONDITION. SIGNIFICANT OTHER WHO IS ALSO NEXT OF KIN WISHES FOR PATIENT TO BE FULL CODE.
--- NOTE | 2020-06-15 04:34 | NUR ---
PATIENT WENT INTO ASYSTOLE AGAIN. ACLS ACTIVATED FOR 3RD TIME. PLEASE SEE CODE BLUE SHEET.
--- NOTE | 2020-06-15 04:41 | NUR ---
FAMILY WAS CONTACTED ABOUT PATIENT CRITICAL STATUS. FAMILY FINALLY DECIDED TO CHANGE CODE STATUS TO DNR. PATIENT IS CURRENTLY IN CRITICAL CONDITION.
[2020-06-15 04:50] LABS: ABG BASE EXCESS -22.8 mmol/L; ABG OXYGEN SATURATION 69.7 % (92.0-98.5); ABG PH 6.905 (7.350-7.450); COHb 0.4 % (0.5-1.5); MetHb 0.8 % (0.0-1.5); O2Hb 68.9 % (94.0-97.0); SITE, ABG Right Brachial; VT, ABG 480 mL
[2020-06-15 05:03] LABS: POTASSIUM 6.8 mmol/L (3.5-5.1)
--- NOTE | 2020-06-15 05:17 | NUR ---
TAMERA NOTIFIED ABOUT PATIENTS CONDITION AND MADE AWARE OF PATIENT CRITICAL LABS. ORDER FOR D50 50ML TO GIVE IVP.
[2020-06-15] MEDS ORDERED: ATROPINE SULFATE 1 MG/10 ML DISP.SYRIN IV ONE (05:19)
[2020-06-15] MEDS ORDERED: SODIUM BICARBONATE SYR 50 MEQ/50 ML DISP.SYRIN IV ONE (05:19)
[2020-06-15] MEDS ORDERED: CALCIUM CHLORIDE 1,000 MG/10 ML DISP.SYRIN IV ONE (05:19)
[2020-06-15] MEDS ORDERED: EPINEPHRINE (1:10,000) SYRINGE 1 MG/10 ML DISP.SYRIN IVP ONE (05:19)
[2020-06-15] MEDS ORDERED: DEXTROSE 50%-WATER 50 ML DISP.SYRIN IV ONE (05:19)
--- NOTE | 2020-06-15 05:20 | NUR ---
Called to evaluate patient noted asystole in machine wood sander x 3 leads.No audible heart rate on auscultation.Pulses not palpable. BP not appreciated.No breathing.Not responding to noxious stimuli.Pupils fixed and dilated.Not compatible for life.Pronounce .
[2020-06-15] MEDS ORDERED: DEXTROSE 50%-WATER 50 ML DISP.SYRIN IVP ONE (05:30)
--- NOTE | 2020-06-15 05:48 | NUR ---
PATIENT AT 519. FAMILY NOTIFIED.
[2020-06-15] MEDS ORDERED: VANCOMYCIN 1 GM in IV D5W 250 ML IV SCH (06:00)
--- NOTE | 2020-06-15 06:11 | NUR ---
ONE CALL WAS NOTIFIED. BODY IS NOT A CANDIDATE FOR [employer] #[id number] REP LEORA Wilcox CORONERS WAS NOTIFIED AND NOT A [employer]ON[employer] AX TECHNICAL ARCHITECT MICHEL. Addendum: 06/15/20 at 0724 by ARTIE SILVERMAN RN [facility] NOTIFIED. BODY IS NOT A CANDIDATE FOR [employer]. #[id number] REP LEORA Wilcox
[2020-06-15] MEDS ORDERED: POTASSIUM PHOSPHATE MM 15 MMOL in IV NS 0.9% 250 ML IV SCH (06:30)
== END 2020-06-15 05:20 | DRG 853 ==
LOC: ER 08:28 → ICU 12:36 → TELE-TD 06-06 16:03 → TELE1 06-07 10:33 → ICU 06-12 18:35
PROVIDERS: ADMIT Internal Medicine; ATTEND Internal Medicine
PROC: 5A1955Z Respiratory Ventilation, Greater than 96 Consecutive Hours (ICD-10-PCS; principal; 2020-06-04)
PROC: 02HV33Z Insertion of Infusion Device into Superior Vena Cava, Percutaneous Approach (ICD-10-PCS; 2020-06-04)
PROC: B548ZZA Ultrasonography of Superior Vena Cava, Guidance (ICD-10-PCS; 2020-06-04)
PROC: 30233N1 Transfusion of Nonautologous Red Blood Cells into Peripheral Vein, Percutaneous Approach (ICD-10-PCS; 2020-06-05)
PROC: 0QB10ZZ Excision of Sacrum, Open Approach (ICD-10-PCS; 2020-06-08)
PROC: 0JB90ZZ Excision of Buttock Subcutaneous Tissue and Fascia, Open Approach (ICD-10-PCS; 2020-06-08)
PROC: 0D20XUZ Change Feeding Device in Upper Intestinal Tract, External Approach (ICD-10-PCS; 2020-06-12)
PROC: 02HV33Z Insertion of Infusion Device into Superior Vena Cava, Percutaneous Approach (ICD-10-PCS; 2020-06-13)
PROC: B548ZZA Ultrasonography of Superior Vena Cava, Guidance (ICD-10-PCS; 2020-06-13)
PROC: 5A12012 Performance of Cardiac Output, Single, Manual (ICD-10-PCS; 2020-06-15)
DX: A41.9 Sepsis, unspecified organism (principal); L89.154 Pressure ulcer of sacral region, stage 4; L89.324 Pressure ulcer of left buttock, stage 4; L89.313 Pressure ulcer of right buttock, stage 3; G92 Toxic encephalopathy; N17.0 Acute kidney failure with tubular necrosis; E43 Unspecified severe protein-calorie malnutrition; J96.20 Acute and chronic respiratory failure, unspecified whether with hypoxia or hypercapnia; I21.A1 Myocardial infarction type 2; R65.21 Severe sepsis with septic shock; J96.10 Chronic respiratory failure, unspecified whether with hypoxia or hypercapnia; N39.0 Urinary tract infection, site not specified; Z99.11 Dependence on respirator [ventilator] status; E87.1 Hypo-osmolality and hyponatremia; E87.2 Acidosis; E78.5 Hyperlipidemia, unspecified; E11.9 Type 2 diabetes mellitus without complications; D64.9 Anemia, unspecified; E87.5 Hyperkalemia; J44.9 Chronic obstructive pulmonary disease, unspecified; I25.10 Atherosclerotic heart disease of native coronary artery without angina pectoris; I10 Essential (primary) hypertension; Z93.1 Gastrostomy status; Z93.0 Tracheostomy status; Z93.3 Colostomy status; Z79.4 Long term (current) use of insulin; R13.10 Dysphagia, unspecified; Z79.01 Long term (current) use of anticoagulants; M20.41 Other hammer toe(s) (acquired), right foot; M20.42 Other hammer toe(s) (acquired), left foot; B96.4 Proteus (mirabilis) (morganii) as the cause of diseases classified elsewhere; D47.3 Essential (hemorrhagic) thrombocythemia; M89.9 Disorder of bone, unspecified; M48.00 Spinal stenosis, site unspecified; I35.0 Nonrheumatic aortic (valve) stenosis; E88.09 Other disorders of plasma-protein metabolism, not elsewhere classified; L89.130 Pressure ulcer of right lower back, unstageable; L89.890 Pressure ulcer of other site, unstageable; L89.626 Pressure-induced deep tissue damage of left heel; L89.616 Pressure-induced deep tissue damage of right heel; Z68.33 Body mass index [BMI] 33.0-33.9, adult; N13.9 Obstructive and reflux uropathy, unspecified; I48.0 Paroxysmal atrial fibrillation; E86.1 Hypovolemia; R31.9 Hematuria, unspecified; Z66 Do not resuscitate
CPT/HCPCS: 31720; 36415; 36600; 71045-TC; 74018; 76770-TC; 80048-TC; 80051-TC; 80053-TC; 80076-TC; 80162-TC; 80202-TC; 81001; 82247-TC; 82248-TC; 82272-TC; 82533; 82570-TC; 82728-TC; 82803-TC; 82962-TC; 83540-TC; 83605-TC; 83735-TC; 83880; 84100-TC; 84155-TC; 84300-TC; 84484-TC; 85025-TC; 85652-TC; 85730-TC; 86850-TC; 87040-TC; 87070-TC; 87081-TC; 87086-TC; 87102-TC; 87186-TC; 92950-TC; 94002-TC; 94003-TC; 94760-TC; 94762-TC; 94799-TC; 99082-TC; A4216; A4217; A4623; A6253; A6403; C1751; C9803; G0378; J0171; J0461; J0696; J1720; J1815; J1956; J2185; J2248; J2370; J2916; J3370; J3490; J7030; J7040; J7050; J7060; J7070; P9016-BL; Q9963; U0003